=== PATIENT | female | born 1940 | race Caucasian/White ===

== ENCOUNTER → 2017-09-14 07:15 | Outpatient (CLI) | payer MEDICARE, OTHER, SELFPAY ==
--- NOTE | 2017-09-14 09:49 | NEURO_ITS ---
NCS and/or EMG Patient Report Ordering Doctor: Michael Lowery DATE OF SERVICE: 09/14/17 This is a right upper extremity nerve conduction study performed on this 77-year -old female with a history of numbness, tingling, achiness and pain for several months. There is no history of neck pain or diabetes. Right upper extremity sensory and motor nerve conduction study is performed. The median motor and sensory distal latency is prolonged, the median motor amplitude is reduced and the conduction velocity is mildly reduced. The median sensory amplitude is preserved. The ulnar motor and sensory and radial sensory responses are preserved. The median F-wave latency is prolonged compared to the ulnar F wave latency. Impression: Abnormal nerve conduction study of the right upper extremity consistent with severe carpal tunnel syndrome at the wrist.
== END ==
PROVIDERS: Family Provider Nurse Practitioner Family; PCP Nurse Practitioner Family; Visit Provider Orthopaedic Surgery
DX: G56.01 Carpal tunnel syndrome, right upper limb (principal)
CPT/HCPCS: 95909

== ENCOUNTER → 2020-12-17 09:48 | Outpatient (CLI) | payer MEDICARE, OTHER, SELFPAY ==
[2020-12-17 10:32] LABS: Hematocrit 42.4 % (37-47); Hemoglobin 14.3 g/dL (12.0-15.0); Mean Corp Hgb Conc 33.7 g/dL (32-36); Mean Corpuscular Hgb 29.8 pg (27.0-32.0); Mean Corpuscular Volume 88.3 fL (81-99); Mean Platelet Vol. 10.6 fl (6.2-12.0); Platelet Count 241 K/mm3 (150-450); RBC Distribution Width CV 13.8 % (11.6-14.6); RBC Distribution Width SD 44.9 fl (35.1-43.9); White Blood Count 5.4 K/mm3 (4.4-11.0)
[2020-12-17 11:15] LABS: ALB/GLOB Ratio 0.8 RATIO (0.9-2.4); AST(SGOT) 21 U/L (15-37); Alanine Aminotransfer ALT/SGPT 22 U/L (13-56); Albumin, Serum 3.2 g/dL (3.2-5.0); Alkaline Phosphatase 77 U/L (45-117); Anion Gap 7 (5-15); BUN 14 mg/dL (7-18); BUN/Creat Ratio 16.6 RATIO (10-20); Calcium,Total 8.9 mg/dL (8.5-10.1); Chloride 106 mmol/L (98-107); Creatinine, Serum 0.84 mg/dL (0.55-1.02); EST Glomerular Filtration Rate 69 mL/min (>60); Est Glom Filt Rate - Afr Amer 83 mL/min (>60); Globulin 4.1 g/dL (2.2-4.2); Glucose 98 mg/dL (74-106); Potassium 3.9 mmol/L (3.5-5.1); Protein, Total 7.3 g/dL (6.4-8.2); Sodium Level 138 mmol/L (136-145)
[2020-12-17 14:52] LABS: Probe Check PASS; Specimen Processing Control PASS
== END ==
PROVIDERS: PCP Nurse Practitioner Family; Visit Provider Nurse Practitioner Family
DX: U07.1 COVID-19 (principal); K92.1 Melena
CPT/HCPCS: 36415; 80053; 85027; 87635; C9803; U0005; U0003

== ENCOUNTER → 2020-12-18 07:37 | Outpatient (CLI) | payer MEDICARE, OTHER, SELFPAY | PROVIDERS: PCP Nurse Practitioner Family; Referring Provider Nurse Practitioner Family; Visit Provider Nurse Practitioner Family | DX: K92.1 Melena (principal) | CPT/HCPCS: 82274 ==

== ENCOUNTER → 2022-06-18 | Outpatient (CLI) | payer MEDICARE, OTHER, SELFPAY ==
--- NOTE | 2022-06-18 09:09 | BI_ITS ---
MAMMOGRAPHY - BILATERAL SCREENING REASON FOR EXAM: Female, 82 years old. Routine annual screening examination. PERTINENT HISTORY: Non-contributory. TECHNIQUE: Digital bilateral breast ashley (3D mammographic acquisition) in the CC and MLO projections. 2-D mediolateral oblique (MLO) and craniocaudad (CC) views of both breasts were obtained. CAD: Full Field Digital Mammography with Computer Added Detection was performed. COMPARISON: No comparison mammograms available at this time. If any prior films become available, an addendum to this report can be generated. FINDINGS: Breast Composition: There are scattered areas of fibroglandular density. There are no dominant masses or suspicious calcifications. Macrocalcifications seen in the upper midportion of the left breast. Benign-appearing bilateral axillary lymph nodes. No other significant abnormalities are identified. BI/SCRN MAMM (CAD)W/ASHLEY BILAT IMPRESSION: Negative screening mammogram. Yearly followup mammogram recommended. (A) ASSESSMENT CATEGORY: BIRADS Category 2: Benign. A letter regarding these results will be sent to the patient by the facility within 30 days. Approximately 10% of breast cancers are not detected by mammography. A normal mammogram should not delay biopsy of a clinically suspicious abnormality. [id number] Electronically Signed: Leonel Jon MD at 10:44 EDT ,
== END | disposition home or self-care (01) ==
PROVIDERS: PCP Nurse Practitioner Family; Referring Provider Nurse Practitioner Family; Visit Provider Nurse Practitioner Family
DX: Z12.31 Encounter for screening mammogram for malignant neoplasm of breast (principal)
CPT/HCPCS: 77063; 77067

== ENCOUNTER → 2023-03-11 | Outpatient (CLI) | payer MEDICARE, OTHER, SELFPAY ==
--- NOTE | 2023-03-11 12:28 | CT_ITS ---
EXAM: CT RIGHT UPPER EXTREMITY WITHOUT INTRAVENOUS CONTRAST CLINICAL INDICATION: STRAIN OF MUSC/TEND TECHNIQUE: Helically acquired images were obtained of the right upper extremity without intravenous contrast. 2-D reformats were performed by the technologist. CTDIvol = ( 22.11 ) mGy, DLP = ( 516.36 ) mGycm This CT exam was performed using one or more of the following dose reduction techniques: automated exposure control, adjustment of the mA and/or kV according to patient size, and/or use of iterative reconstruction technique. COMPARISON: No relevant prior studies available. 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 High riding humeral head is concerning for associated impingement. No other malalignment. No sclerotic or destructive changes. No acute or healing fracture. SOFT TISSUES: Unremarkable. No soft tissue swelling or gas. No radiopaque foreign body. No soft tissue masses or fluid collections. LUNGS AND PLEURAL SPACES: 5.5 mm noncalcified solid pulmonary nodule at the posterior aspect of the right upper lobe. Right lung is otherwise clear. CT/Extremity Upper without Contra IMPRESSION: 1. High riding humeral head is concerning for associated/underlying impingement. 2. 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 Correlate for any clinical evidence of glenohumeral instability. 3. 5.5 mm noncalcified solid pulmonary nodule at the posterior aspect of the right upper lobe. Suggest a follow-up complete chest CT to evaluate for presence of any other nodules. Electronically Signed: Parish Cunha MD at 23:33 EST ,
== END | disposition home or self-care (01) ==
LOC: CT 12:26
PROVIDERS: PCP Nurse Practitioner Family; Referring Provider Student in an Organized Health Care Education/Training Program; Visit Provider Student in an Organized Health Care Education/Training Program
DX: M19.011 Primary osteoarthritis, right shoulder (principal); S46.011D Strain of muscle(s) and tendon(s) of the rotator cuff of right shoulder, subsequent encounter
CPT/HCPCS: 73200

== ENCOUNTER → 2023-03-31 | Outpatient (CLI) | payer MEDICARE, OTHER, SELFPAY ==
--- NOTE | 2023-03-31 07:55 | CT_ITS ---
STUDY: CT CHEST WITH CONTRAST REASON FOR EXAM: Female, 83 years old. PULM NODULE RADIATION DOSAGE (If Supplied By Facility): CTDIvol = ( 10.92 ) mGy, DLP = ( 296.18 ) mGycm TECHNIQUE: Transaxial imaging was performed following intravenous administration of IV 100mL Isovue-300. Multiplanar coronal and sagittal images were reformatted. Individualized dose optimization techniques were used for this CT. COMPARISON: No relevant priors. FINDINGS: CHEST Stable 5 mm noncalcified nodule in the posterior aspect of the right upper lobe abutting the fissure. 12 month follow-up recommended. There is no demonstrated pleural abnormality. Normal heart and pericardium. Normal mediastinum. Normal hilar regions. Normal unenhanced pulmonary arteries. The descending thoracic aorta measures upper limits of normal. Normal osseous structures. There is a 2.3 cm x 1.7 cm hypodense nodule in the upper medial portion of the spleen. This may represent a small hemangioma. Fatty infiltration of the liver. CT/Chest WITH Contrast IMPRESSION: Stable 5 mm noncalcified nodule in the posterior aspect of the right upper lobe abutting the fissure. Twelve-month follow-up recommended. Electronically Signed: Leonel Jon MD at 9:59 EST ,
--- OUTSIDE RECORDS SUMMARY | 2023-03-31 07:59 | XMS RPT_ITS | CCD ---
Author Name Unknown Address [facility] [address] [place] [id number] Organization [facility] Care Team Providers Care Counter Former Name Role Phone FERNANDO Sim CNP, CLARE Sparks Primary Care [facility] FERNANDO JOINER - [employer], CLARE Sparks Attending U navailable FERNANDO JACQUARD TWINE POLISHER OPERATOR - [employer]ER, CLARE Sparks Primary Care U navailable FERNANDO JACQUARD TWINE POLISHER OPERATOR - [employer]ER, CLARE Sparks Attending U navailable FERNANDO JACQUARD TWINE POLISHER OPERATOR - [employer] LABORER, CLARE Sparks Primary Care U navailable FERNANDO JACQUARD TWINE POLISHER OPERATOR - [employer] LAB[employer]ER, CLARE Sparks Attending U navailable FERNANDO JACQUARD TWINE POLISHER OPERATOR - [employer]ER, CLARE Sparks Primary Care U navailable FERNANDO JACQUARD TWINE POLISHER OPERATOR - [employer]ER, CLARE Sparks Attending U navailable FERNANDO JACQUARD TWINE POLISHER OPERATOR - [employer]ER, CLARE Sparks Primary Care U navailable Allergies Allergy Classification Reported Allergen(s) Allergy Type Date of Onset Reaction(s) Facility (4 sources) Amoxicillin / Clavulanate; Translations: [amoxicillin-cla vulanate] Drug Allergy Rhinitis (disorder) [facility] Medications Current Medications Medication Drug Class(es) Dates Sig (Normalized) Sig (Original) acetaminophen 500 mg / diphenhydrAMINE hydrochloride 25 mg oral tablet (7 sources) Histamine-1 Receptor Antagonist Start: 03-02-2022 take 1 tablet by mouth once daily at bedtime Tylenol PM Extra Strength oral tablet tab(s), Oral, qHS, 0 Refill(s) Start Date: 07/01/22 Status: Ordered aspirin 325 mg oral tablet (4 sources) Platelet Aggregation Inhibitor, Nonsteroidal Anti-inflammatory Drug Start: 09-26-2018 aspirin 325 mg oral tablet Dose : 325 mg = 1 tab(s), Oral, Daily, 0 Refill(s) Start Date: 09/26/18 Status: Ordered Fish Oils (4 sources) Start: 09-26-2018 Fish Oil 1200 mg oral capsule Dose : 1,200 mg = 1 cap(s), Oral, qDay, # 90 cap(s), 0 Refill(s) Start Date: 09/26/18 Status: Ordered fosinopril sodium 20 mg oral tablet (4 sources) Angiotensin Converting Enzyme Inhibitor Start: 06-04-2022 fosinopril 20 mg oral tablet Dose : 20 mg = 1 tab(s), Oral, Daily, # 90 tab(s), 1 Refill(s), Pharmacy: [id number], Hypertension, goal below 140/90, 148, cm, 06/04/22 10:11:00 EDT, Height, kg, 06/04/22 10:11:00 EDT, Dosing Weight Start Date: 06/04/22 Status: Ordered Completed/Discontinued Medications Medication Drug Class(es) Dates Sig (Normalized) Sig (Original) diclofenac sodium 50 mg delayed release oral tablet (2 sources) Nonsteroidal Anti-inflammatory Drug Start: 07-29-2022 End: 09-27-2022 diclofenac sodium 50 mg oral delayed release tablet Dose : 50 mg = 1 tab(s), Oral, q8h, PRN as needed for arthritis, # 60 tab(s), 1 Refill(s), Pharmacy: [id number], Pain of right shoulder joint on movement, 147.5, cm, 07/29/22 8:38:00 EDT, Height Start Date: 07/29/22 Stop Date: 09/27/22 Status: Ordered Problems Problem Classification Problem Date Documented Da te Episodic/Chronic Allergic reactions (4 sources) 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 Episodic Cardiac dysrhythmias (3 sources) Tachycardia 07-01-2022 Episodic Coronary atherosclerosis and other heart disease (3 sources) History of myocardial infarction 07-01-2022 Chronic Disorders of lipid metabolism (9 sources) Hyperlipidemia; Translations: [Hypertriglyceridem ia] Onset: 11-18-2022 09-26-2018 Chronic Essential hypertension (6 sources) Hypertensive disorder; Translations: [Essential (primary) hypertension] Onset: 11-18-2022 09-26-2018 Chronic Heart valve disorders (1 source) Aortic valve disorder 08-05-2022 Chronic Nonmalignant breast conditions (4 sources) Lesion of breast 05-04-2022 Episodic Nutritional deficiencies (6 sources) Vitamin D deficiency; Translations: [Vitamin D deficiency, unspecified] Onset: 11-18-2022 09-26-2018 Chronic Other and ill-defined heart disease (3 sources) Left atrial enlargement 07-01-2022 Chronic Results Test Name Value Interpretation Reference Range Facil ity Encounters Encounter Date Encounter Type Care Provider Facility Start: 11-18-2022 ambulatory CLARE OROZCO JACQUARD TWINE POLISHER OPERATOR - [employer] Facility:B Start: 11-18-2022 End: 11-22-2022 Outreach Lab CLARE KING JACQUARD TWINE POLISHER OPERATOR - [employer]ER [facility] Start: 07-08-2022 End: 07-09-2022 ambulatory CLARE KING JACQUARD TWINE POLISHER OPERATOR - [employer] Facility:B Start: 07-08-2022 End: 07-08-2022 Patient encounter procedure CLARE KING JACQUARD TWINE POLISHER OPERATOR - [employer] [facility] Start: 07-01-2022 End: 07-02-2022 ambulatory CLARE KING JACQUARD TWINE POLISHER OPERATOR - [employer] Facility:B Start: 07-01-2022 End: 07-01-2022 Patient encounter procedure CLARE KING JACQUARD TWINE POLISHER OPERATOR - [employer] [facility] Start: 05-11-2022 End: 05-12-2022 ambulatory CLARE KING JACQUARD TWINE POLISHER OPERATOR - [employer] Facility:B Start: 05-11-2022 End: 05-11-2022 Patient encounter procedure CLARE KING JACQUARD TWINE POLISHER OPERATOR - [employer]ER [facility] Procedures Date Procedure Procedure Detail Performing Clinician Start: 03-21-2017 Decompression of med yoel nerve CLARE KING JACQUARD TWINE POLISHER OPERATOR - [employer]ER Immunizations Immunization Date Immunization Notes Care Provider Fa jamaal 04-08-2022 influenza, injectabl e, quadrivalent, contains preservative; Translations: [Fluarix PF Quadrivalent ] CLARE KING JACQUARD TWINE POLISHER OPERATOR - [employer]ER [facility] [employer] 04-09-2021 SARS-CoV-2 (COVID-19 ) [id number] vaccine CLARE KING JACQUARD TWINE POLISHER OPERATOR - [employer] [facility] [employer] Payers Date Payer Category Payer Medicare [id number] 2022 Private Health Insurance [id number] 1940 Unknown [id number] 1940 Unknown [id number] 1940 Unknown [id number] 1940 Unknown [id number] Social History Date Type Detail Facility Start: 09-26-2018 Tobacco smoking status Never s moked tobacco (finding) [facility] Evaluation + Plan note Laboratory Note Date & Type Note Facility Evaluation + Plan note Future Appointments Appointment Date:05/27/2022 09:15:00 AM Scheduled Provider: Location:[facility] Appointment Type:PC Nurse Lab Appointment Date:06/03/2022 09:00:00 AM Scheduled Provider:CLARE KING JACQUARD TWINE POLISHER OPERATOR - [employer] Location:[facility] Appointment Type: OV Follow Up Future Scheduled TestsThyroid Stimulating Hormone 05/27/22Free T4 05/27/22Complete Blood Count 05/27/22Lipid Profile 05/27/22Microalbumin Level Urine 05/27/22Microalbumin Level Urine 11/22/21Vitamin D Level 05/27/22Complete Metabolic Panel 05/27/22 [facility] Evaluation + Plan note Laboratory Note Date & Type Note Facility Evaluation + Plan note Future Appointments Appointment Date:07/20/2022 08:20:00 AM Scheduled Provider:CLARE KING APRN, CNP Location:[facility] Appointment Type:PC OV Follow Up Appointment Date:12/02/2022 09:15:00 AM Scheduled Provider: Location:[facility] Appointment Type:PC Nurse Lab Appointment Date:12/09/2022 09:40:00 AM Scheduled Provider:CLARE KING APRN, CNP Location:[facility] Appointment Type:PC OV Follow Up Future Scheduled TestsThyroid Stimulating Hormone 12/05/22Free T4 12/05/22Complete Blood Count 12/05/22Lipid Profile 12/05/22Albumin/Creatinine Ratio, Random Urine 12/05/22Microalbumin Level Urine 3/12/11Microalbumin Level Urine /22Vitamin D Level 12/05/22Complete Metabolic Panel 12/05/22 [facility] Evaluation + Plan note Laboratory Note Date & Type Note Facility Evaluation + Plan note Future Appointments Appointment Date:07/20/2022 08:20:00 AM Scheduled Provider:CLARE KING APRN, CNP Location:[facility] Appointment Type:PC OV Follow Up Appointment Date:08/05/2022 01:15:00 PM Scheduled Provider: Location:[facility] Appointment Type:CV BOBBIN DISKER Appointment Date:12/02/2022 09:15:00 AM Scheduled Provider: Location:[facility] Appointment Type:PC Nurse Lab Appointment Date:12/09/2022 09:40:00 AM Scheduled Provider:CLARE KING APRN, CNP Location:[facility] Appointment Type:PC OV Follow Up Future Scheduled TestsThyroid Stimulating Hormone 12/05/22Free T4 12/05/22Complete Blood Count 12/05/22Lipid Profile 12/05/22Albumin/Creatinine Ratio, Random Urine 12/05/22Microalbumin Level Urine 3/12/11Microalbumin Level Urine 9//22Vitamin D Level 12/05/22Complete Metabolic Panel 12/05/22 [facility] Evaluation + Plan note Note Date & Type Note Facility Evaluation + Plan note Future Appointments Appointment Date:11/30/2022 08:00:00 AM Scheduled Provider:CLARE KING APRN, CNP Location:[facility] Appointment Type:PC OV Follow Up [facility] Hospital course Narrative Note Date & Type Note Facility Hospital course Narrative No data available for this section [facility] Hospital Discharge instructions Note Date & Type Note Facility Hospital Discharge instructions No data available for this section [facility] Progress note Note Date & Type Note Facility Progress note No data available for this section [facility] Summary Purpose Family History No Family History Records Found No data available for this section Advance Directives No Advanced Directives Records Found Additional Source Comments Care Team (unrecognized sect ion and content) Care Team Personnel Name: CLARE KING APRN, CNP Position: P4 Advanced Brim Pouncer Machine Operator Member Role: Primary Care Physician Address: Address: [address] [place] [address] Care Team Related Persons Name: MAYITO GRIDER Patient Care team informatio n (unrecognized section and content) Care Team Personnel Name: CLARE KING APRN, CNP Position: P4 Advanced Brim Pouncer Machine Operator Member Role: Primary Care Physician Address: Address: [address] [place] [address] Care Team Related Persons Name: MAYITO GRIDER INFORMATION SOURCE (unrecogn ized section and content) FOR RECORDS PERTAINING TO PATIENTS WHO ARE OR HAVE BEEN ENROLLED IN A CHEMICAL DEPENDENCY/SUBSTANCEABUSE PROGRAM, SOME INFORMATION MAY BE OMITTED. This clinical summary was aggregated from multiple sources. Caution should be exercised in using it in the provision of clinical care. This summary normalizes information from multiple sources, and as a consequence, information in this document may materially change the coding, format and clinical context of patient data. In addition, data may be omitted in some cases. CLINICAL DECISIONS SHOULD BE BASED ON THE PRIMARY CLINICAL RECORDS. [facility] [employer] [facility]. provides no warranty or guarantee of the accuracy or completeness of information in this document.
== END | disposition home or self-care (01) ==
LOC: CT 07:54
PROVIDERS: PCP Nurse Practitioner Family; Referring Provider Nurse Practitioner Family; Visit Provider Nurse Practitioner Family
DX: R91.1 Solitary pulmonary nodule (principal)
CPT/HCPCS: 71260; Q9967

== ENCOUNTER 2023-04-07 15:09 | Observation (INO) | payer MEDICARE, OTHER, SELFPAY ==
--- NOTE | 2023-03-11 12:24 | EKG12_ITS ---
Test Reason : PRE OP Blood Pressure : / mmHG Vent. Rate : 084 BPM Atrial Rate : 084 BPM P-R Int : 212 ms QRS Dur : 072 ms QT Int : 354 ms P-R-T Axes : 062 -17 060 degrees QTc Int : 418 ms Sinus rhythm with 1st degree A-V block Low voltage QRS Borderline ECG Confirmed by NORA CHRISTY, USHA ([id number]), editorial intern PONCHO PITT ([id number]) on 03/11/2023 2:38:45 PM Referred By: Migue Carrillo Confirmed By:USHA MELENDEZ MD
[2023-03-11 13:34] LABS: Absolute Lymphocyte Count 2.53 X10^3/uL (0.83-4.51); Absolute Neutrophil Count 5.7 X10^3/uL (2.0-7.7); Basophil% 1.9 % (0-1); Eosinophil# 0.57 X10^3/uL; Eosinophils% 5.5 % (0-5); Hematocrit 45.3 % (37-47); Hemoglobin 14.8 g/dL (12.0-15.0); Lymphocyte # 2.53 X10^3/ul (0.83-4.51); Lymphocyte % 24.6 % (19-41); Mean Corp Hgb Conc 32.7 g/dL (32-36); Mean Corpuscular Hgb 29.4 pg (27.0-32.0); Mean Corpuscular Volume 90.1 fL (81-99); Mean Platelet Vol. 10.2 fl (6.2-12.0); Monocyte# 1.22 X10^3/uL; Monocyte% 11.8 % (0-10); NRBC Flagged by Analyzer 0 % (0-5); Neutrophil # 5.74 X10^3/uL (2.7-7.7); Neutrophil % 55.8 % (47-70); Platelet Count 393 K/mm3 (150-450); RBC Distribution Width CV 13.3 % (11.6-14.6); RBC Distribution Width SD 43.4 fl (35.1-43.9); Red Blood Count 5.03 M/mm3 (4.2-5.4); White Blood Count 10.3 K/mm3 (4.4-11.0)
[2023-03-11 13:47] LABS: Albumin, Serum 3.7 g/dL (3.2-5.0); Anion Gap 6 (5-15); BUN 14 mg/dL (7-18); BUN/Creat Ratio 18.7 RATIO (10-20); Calcium,Total 10.6 mg/dL (8.5-10.1); Chloride 106 mmol/L (98-107); Creatinine, Serum 0.75 mg/dL (0.55-1.02); EST Glomerular Filtration Rate 79 mL/min (>60); Est Glom Filt Rate - Afr Amer 96 mL/min (>60); Glucose 99 mg/dL (74-106); Potassium 4.5 mmol/L (3.5-5.1); Sodium Level 139 mmol/L (136-145)
[2023-03-11 13:47] LABS: Magnesium 2.1 mg/dL (1.6-2.6)
[2023-04-07] VITALS (12 sets, daily range): BP systolic 115–150; BP diastolic 73–87; PULSE 71–90; RESP 14–20; TEMP 35.9–36.3; O2SAT 90–99; BMI 31.4
--- OUTSIDE RECORDS SUMMARY | 2023-04-07 12:38 | XMS RPT_ITS | CCD ---
Author Name Unknown Address Critical access hospital5 [facility] [address] [place] [id number] Organization [facility] Care Team Providers Care Dog Warden Name Role Phone FERNANDO Sim CNP, CLARE Sparks Primary Care [facility] FERNANDO JOINER - WELFARE ADMINISTRATOR, CLARE Sparks Attending U navailable FERNANDO CAR BUILDER - WELFARE ADMINISTRATOR, CLARE Sparks Primary Care U navailable FERNANDO CAR BUILDER - WELFARE ADMINISTRATOR, CLARE Sparks Attending U navailable FERNANDO CAR BUILDER - WELFARE ADMINISTRATOR, CLARE Sparks Primary Care U navailable FERNANDO CAR BUILDER - WELFARE ADMINISTRATOR, CLARE Sparks Attending U navailable FERNANDO CAR BUILDER - WELFARE ADMINISTRATOR, CLARE Sparks Primary Care U navailable FERNANDO CAR BUILDER - WELFARE ADMINISTRATOR, CLARE Sparks Attending U navailable FERNANDO CAR BUILDER - WELFARE ADMINISTRATOR, CLARE Sparks Primary Care U navailable Allergies Allergy Classification Reported Allergen(s) Allergy Type Date of Onset Reaction(s) Facility (4 sources) Amoxicillin / Clavulanate; Translations: [amoxicillin-cla vulanate] Drug Allergy Rhinitis (disorder) [facility] Medications Current Medications Medication Drug Class(es) Dates [...] Daily, # 90 tab(s), 1 Refill(s), Pharmacy: [id number], Hypertension, goal below 140/90, 148, [...] arthritis, # 60 tab(s), 1 Refill(s), Pharmacy: [id number], Pain of right shoulder joint [...] Provider Facility Start: 11-18-2022 ambulatory CLARE OROZCO CAR BUILDER - WELFARE ADMINISTRATOR Facility:B Start: 11-18-2022 End: 11-22-2022 Outreach Lab CLARE KING CAR BUILDER - WELFARE ADMINISTRATOR [facility] Start: 07-08-2022 End: 07-09-2022 ambulatory CLARE KING CAR BUILDER - WELFARE ADMINISTRATOR Facility:[facility] Start: 07-08-2022 End: 07-08-2022 Patient encounter procedure CLARE KING CAR BUILDER - WELFARE ADMINISTRATOR [facility] Start: 07-01-2022 End: 07-02-2022 ambulatory CLARE KING CAR BUILDER - WELFARE ADMINISTRATOR Facility:[facility] Start: 07-01-2022 End: 07-01-2022 Patient encounter procedure CLAER KING CAR BUILDER - WELFARE ADMINISTRATOR [facility] Start: 05-11-2022 End: 05-12-2022 ambulatory CLARE KING CAR BUILDER - WELFARE ADMINISTRATOR Facility:[facility] Start: 05-11-2022 End: 05-11-2022 Patient encounter procedure CLARE KING CAR BUILDER - WELFARE ADMINISTRATOR [facility] Procedures Date Procedure Procedure Detail Performing Clinician Start: 03-21-2017 Decompression of med yoel nerve CLARE KING CAR BUILDER - WELFARE ADMINISTRATOR Immunizations Immunization Date Immunization Notes Care Provider Fa jamaal 04-08-2022 influenza, injectabl e, quadrivalent, contains preservative; Translations: [Fluarix PF Quadrivalent ] CLARE KING CAR BUILDER - WELFARE ADMINISTRATOR [facility] [employer] 04-09-2021 SARS-CoV-2 (COVID-19 ) [id number] vaccine CLARE KING CAR BUILDER - WELFARE ADMINISTRATOR [facility] [place] Payers Date Payer Category Payer Medicare [id number] 2022 Private Health Insurance [id number] 1940 Unknown [id number] 1940 Unknown [id number] 1940 Unknown [id number] 1940 Unknown [id number] Social History Date Type Detail Facility Start: 09-26-2018 Tobacco smoking status Never s moked tobacco (finding) [facility] Evaluation + Plan note Laboratory Note Date & Type Note Facility Evaluation + Plan note Future Appointments Appointment Date:05/27/2022 09:15:00 AM Scheduled Provider: Location:[facility] Appointment Type:PC Nurse Lab Appointment Date:06/03/2022 09:00:00 AM Scheduled Provider:CLARE KING CAR BUILDER - WELFARE ADMINISTRATOR Location:[facility] Appointment Type: OV Follow Up Future Scheduled TestsThyroid Stimulating Hormone 05/27/22Free T4 05/27/22Complete Blood Count 05/27/22Lipid Profile 05/27/22Microalbumin Level Urine 05/27/22Microalbumin Level Urine 11/22/21Vitamin D Level 05/27/22Complete Metabolic Panel 05/27/22 [facility] Evaluation + Plan note Laboratory Note Date [...] /22Vitamin D Level 12/05/22Complete Metabolic Panel 12/05/22 [facility] Evaluation + Plan note Laboratory Note Date & Type Note Facility Evaluation + Plan note Future Appointments Appointment Date:07/20/2022 08:20:00 AM Scheduled Provider:CLARE KING APRN, CNP Location:[facility] Appointment Type:PC OV Follow Up Appointment Date:08/05/2022 01:15:00 PM Scheduled Provider: Location:[facility] Appointment Type:CV ONCOLOGY TRANSPLANT NETWORK MANAGER Appointment Date:12/02/2022 09:15:00 AM Scheduled Provider: Location:[facility] Appointment Type:PC Nurse Lab Appointment Date:12/09/2022 09:40:00 AM Scheduled Provider:CLARE KING APRN, CNP Location:[facility] Appointment Type:PC OV Follow Up Future Scheduled TestsThyroid Stimulating Hormone 12/05/22Free T4 12/05/22Complete Blood Count 12/05/22Lipid Profile 12/05/22Albumin/Creatinine Ratio, Random Urine 12/05/22Microalbumin Level Urine 3/12/11Microalbumin Level Urine 9//22Vitamin D Level 12/05/22Complete Metabolic Panel 12/05/22 [facility] Evaluation + Plan note Note Date & Type Note Facility Evaluation + Plan note Future Appointments Appointment Date:11/30/2022 08:00:00 AM Scheduled Provider:CLARE KING APRN, CNP Location:[facility] Appointment Type:PC OV Follow Up [facility] Hospital course Narrative Note Date & Type Note Facility Hospital course Narrative No data available for this section [facility] Hospital Discharge instructions Note Date & Type Note Facility Hospital Discharge instructions No data available for this section [facility] Progress note Note Date & Type Note Facility Progress note No data available for this section [facility] Summary Purpose Family History No Family History Records Found No data available for this section Advance Directives No Advanced Directives Records Found Additional Source Comments Care Team (unrecognized sect ion and content) Care Team Personnel Name: CLARE KING APRN, CNP Position: P4 Advanced Pile Operator Member Role: Primary Care Physician Address: Address: [address] [place] [address] Care Team Related Persons Name: MAYITO GRIDER Patient Care team informatio n (unrecognized section and content) Care Team Personnel Name: CLARE KING APRN, CNP Position: P4 Advanced Pile Operator Member Role: Primary Care Physician Address: Address: [address] [place] [address] Care Team Related Persons Name: MAYITO GRIDER [...] BE BASED ON THE PRIMARY CLINICAL RECORDS. [facility]. provides no warranty or guarantee of the accuracy or completeness of information in this document.
[2023-04-07] MEDS: Lactated Ringers 1,000 ML 999 ML IV (12:46)
[2023-04-07] MEDS: Magnesium 1 GM over 15 mins IV (12:47)
[2023-04-07] MEDS: Vancomycin IV 1,000 MG/200 ML BAG 200 MG IV (12:48)
[2023-04-07] MEDS: Gabapentin 600 MG Tablet PO (12:48)
[2023-04-07] MEDS: Acetaminophen 500 MG Tablet 1000 MG PO ×2 (12:48→21:46)
[2023-04-07] MEDS: Celecoxib 200 MG Capsule 400 MG PO (12:48)
[2023-04-07 13:06] LABS: Bedside Glucose 117 mg/dL (74-106)
[2023-04-07] MEDS: Cefazolin 1 GM/50 ML BAG IV (13:36)
[2023-04-07] MEDS: Cefazolin 2 GM in 0.9% Normal Saline (100mL Bag) 100 ML IV (13:36)
[2023-04-07] MEDS: TXA 1000mg in NS100 100ml (IVPB at Incision) 660 MG IV (13:40)
--- NOTE | 2023-04-07 14:00 | SHO_PTH ---
PATHOLOGY RESULTS PATIENT: HARRISON GRIDER LOC: MS3 U#:[id number] AGE/SX: 83/F ROOM: MA313 RE04/07/[address]: Dr. Migue Carrillo DO : 1940 BED: 1 DIS: 04/08/2023 SPEC #: [id number] RECD: 04/08/23 07:34 STATUS: JOSE THAI #: [id number] YISEL: 04/07/23 14:[address]: Migue Carrillo DEPT: SURGICAL PATHOLOGY RECD BY: Maria G Anne ENTERED: 04/08/23 10:08 SP TYPE: HUMERUS OTHR DR: DO Dr. Tong Rooney DO Richard Dennis Tompkins, GYMNASTIC TEACHER-C Tissues: Humerus, NOS Procedures: Decalcification bone/plaque Surgery Specimen Level IV HEADER OPERATION: ERAS, reverse total shoulder arthroplasty PRE-OP DIAGNOSIS: Pain right shoulder, rotator cuff tear and osteoarthritis TISSUE SUBMITTED: Bone and tissue right shoulder MICROSCOPIC DIAGNOSIS Bone and tissue of right shoulder, total shoulder resection: Degenerative joint disease. Polarizable crystals consistent with pseudogout. AM:rita 04/13/2023 MICROSCOPIC DESCRIPTION Slides are reviewed. GROSS DESCRIPTION Received is one container labeled with the patient's name and designated bone and tissue right shoulder. The specimen consists of a humeral head measuring 3.5 x 4.0 x 1.2 cm. The articular surface?shows areas of erosion and osteophyte formation. Also present in the container is a detached piece of bone measuring 3.0 x 2.0 x 0.2 cm. Also received is a piece of fibrocartilaginous tissue measuring 4.0 x 1.0 x 0.5 cm. Bed Maker sections are submitted in two cassettes as follows: 1 - soft tissue, 2 - humeral head after decalcification. / SJ:rita 04/08/2023 TC:5 CPT: 64595, 22185
--- NOTE | 2023-04-07 15:28 | OP.PCM_ITS ---
Report of Operation Date of Procedure: 04/07/23 Description of Surgical Findings:: Preoperative diagnosis: Right shoulder cuff tear arthropathy Postoperative diagnosis: Right shoulder cuff tear arthropathy Procedure: Right reverse total shoulder arthroplasty Surgeon: Migue Carrillo DO Assembler Product: Yuni Lopez PA-C Anesthesia: General endotracheal Pbx Installer: Shay Moore CRNA Complications: None apparent Drains: None Estimated blood loss: 100 cc Urinary output: None IV fluids: Per anesthesia record Specimens: Right humeral head resection Surgical implants: Tornier Aequalis PerFORM+ reversed baseplate 25 mm full wedge augment, standard glenosphere cobalt chrome 36 mm diameter, Tornier perform inlay stem size #2, 0 mm retentive size number 2 36 diameter polyethylene insert, 36 mm central screw with peripheral screws x 4 Surgical indications: This is a 83-year-old female with persistent right shoulder pain and weakness. X-rays revealed cuff tear arthropathy of the right shoulder. She failed nonoperative treatment in the form of NSAIDs, activity modification, physical t herapy, and corticosteroid injection. I recommended a reverse shoulder arthroplasty. We obtained a preoperative CT scan for planning. The risks, benefits, alternatives the procedure was reviewed with the patient and he agreed to proceed. Risks included but were not limited to bleeding, infection, instability, loss of life or limb, risk of anesthesia, neurovascular injury, persistent pain, stiffness, prolonged immobilization, need for additional surgery, loosening of orthopedic hardware. She expressed understanding and wished to proceed with surgery. Surgical details: Patient arrived to [facility] morning of the procedure and was greeted by the same day surgery staff. Prior to her procedure, I greeted the patient in the preoperative holding area I identified the patient by name, record number, and date of . Informed consent was confirmed. The operative extremity was marked. All questions were answered to patient satisfaction. An interscalene block was administered prior to procedure by anesthesia staff for postoperative and intraoperative analgesia. At time of her procedure, patient was brought to the operative suite and positioned supine on a standard table with a beachchair attachment. General anesthesia was induced after all bony prominences were well-padded. Endotracheal tube was placed. After adequate anesthesia and securing the tube, we prepared the patient to be positioned in the beachchair position. A well- padded evp head of smg [employer] experience strategy was applied. The nonoperative extremity was placed in a well arm morris. She was then brought into the beachchair position after we confirmed an appropriate blood pressure. We then spun the bed 45 degrees. The operative extremity was then prepared. In the butterfly wing of the bed was removed and a well-padded torso strap was applied to secure the patient to the bed. The operative extremity was now free. We then prepped and draped the right upper extremity in normal, sterile orthopedic fashion. We then performed a timeout with all parties in attendance in agreement with the side, site, and operation be performed. Weight-based vancomycin and 2 g Ancef was administered prior to incision by anesthesia staff, as well as 1 g TXA IV. No concerns were voiced and we elected to proceed. I first marked a standard deltopectoral incision just lateral to the coracoid process in line with the long axis of the humerus. Skin was sharply incised with 10 blade scalpel. I then dissected bluntly through the subcutaneous layers and found the fat stripe between the deltoid and pectoralis major. The cephalic vein was then identified and protected. It was retracted laterally with the deltoid. I then bluntly dissected underneath the deltoid with a Banks elevator. Aurora retractor was placed. I then identified the long head of the biceps tendon in the intertubercular groove. This was tenodesed in situ with #2 FiberWire. I then amputated the biceps proximal to the tenodesis site and fo llowed the tendon to the supraglenoid tubercle where it was amputated. This identified the lesser and greater tuberosities. Retraction of the supraspinatus with exposed footprint was noted. I then performed a subscapularis peel while rotating the humerus externally. I tagged the subscapularis for possible repair later with a tagging suture. Humeral head was then dislocated anteriorly. Appropriate access to the humeral head was confirmed. I then subluxed the humeral head posteriorly with a Fukuda retractor placed around the posterior lip of the glenoid. Inferior capsule was tension. I was able to palpate the axillary nerve. Inferior capsule was then released to the 4 o'clock position of the glenoid face. 3 sided subscapularis release was performed with Bovie cautery. I then remove the Fukuda retractor and redislocated the shoulder anteriorly. I then made an anatomic neck cut of the cartilaginous surface of the humeral head. Sizing plate for a size # 2 stem was utilized to determine appropriate reaming size. A central pin was placed engaging the lateral cortex of the humerus. A size # 2 reamer was used to ream the humeral metaphysis and prepare for the inlay stem. A canal finding reamer was utilized prior to sequential broaching to a size # 2 short stem with excellent rotational and axial purchase in the humerus. I remove the broach handle left the size # [address] I then subluxed the humerus posterior to the glenoid. I then placed retractors around the posterior and anterior glenoid to expose the glenoid. Glenoid labrum was removed with Bovie cautery protecting the axillary nerve. We then used the custom guide from Melinda to position our centering pin, exiting approximately 25 mm from the joint surface along the anterior scapula. Guide was removed and pin was analyzed and compared to preoperative planning. It appeared to be in appropriate position. The wedge shaped reamer was then placed over top of the centering pin. I reamed a flush surface of the glenoid in relationship to the augment. We then removed the reamer and pin and used the drill for the central screw. Central screw and baseplate was assembled on the back table. We then inserted the baseplate and central screw the assembled baseplate to an appropriate depth with excellent purchase. A [place] was used to confirm depth. Peripheral screws then were placed in the peripheral holes with good purchase. The baseplate had excellent purchase and the entire scapula would rotate with rotation of the baseplate. We then impacted the 36 mm glenosphere with a standard eccentricity and tightened the locking screw mechanism. We then removed retractors and turned our attention back to the humerus. I placed a standard +0 millimeters retentive polyethylene insert. I then reduced the shoulder. There was excellent range of motion and stability in all planes of motion. We selected this as our final size. We removed trials from the humerus after final dislocation. I copiously irrigated the canal with normal saline. Broach was placed on hand and then impacted to an appropriate depth. Final +0 mm retentive polyethylene insert was placed. Final reduction was then performed. The subscapularis was then identified with a tagging suture. Repair would have been likely under undue tension and likely failed. I elected to not perform a subscapularis repair. We then copiously irrigated the wound with sterile Betadine and normal saline solution. We reapproximated the fascial interval with 0 Vicryl suture. Subcutaneous layers were reapproximated with 2 -0 Vicryl suture. Skin was finally running V-Loc 3-0 Monocryl suture and Dermabond. A sterile silver Mepilex dressing was applied. Patient was then placed in an ultra sling. Patient tolerated procedure well without complication. She was positioned back in the supine position extubated in the operative suite. She was transferred to the [facility] and subsequently to PACU in stable condition. Need for skilled fleet administrative assistant: Yuni Lopez PA-C was critical to the outcome of the case. During the course of the procedure the physician fleet administrative assistant played a vital role. Her intimate knowledge of my steps in the procedure aided in safe and expedient completion of the procedure. The PA played a vital role in positioning particularly in obtaining the appropriate positioning. The PA was also vital in the retraction of soft tissues during the exposure and protecting vital structures. The PA was also vital and protecting soft tissues during times of bony cuts. She also played a vital role in closure with my direct supervision. The PA was also important during reduction and dislocation of the joint and trials intraoperatively. Intraoperative medications: 2 g Ancef IV, weight-based vancomycin IV, 1 g TXA IV Post Operative Plan: Patient be placed in observation overnight for early convalescence and medical monitoring. Weightbearing: Nonweightbearing right upper extremity, okay for pendulums. Range of motion of wrist elbow and hand as tolerated. Antibiotics: 2 g Ancef IV prior to incision, 24 hours IV antibiotics postoperatively DVT Prophylaxis: Aspirin enteric-coated 81 mg twice daily starting tomorrow Hubbard: None Dressing: Maintain silver dressing x7 days. Okay to shower dressing on starting on day 4 X-Rays: 2 weeks postop in the office Pain Medication: Oxycodone, meloxicam, Tylenol Follow-up: 2 weeks post-operatively with me in the office
--- NOTE | 2023-04-07 15:35 | RAD_ITS ---
STUDY: X-RAY - RIGHT SHOULDER REASON FOR EXAM: Female, 83 years old. post op -- AP and Lateral X-Ray of operative shoulder in PACU TECHNIQUE: 2 view(s) of the shoulder. COMPARISON: None. FINDINGS: Right shoulder prosthesis showing normal alignment of the glenohumeral joint alignment with normal prosthesis of the proximal humerus and glenoid component. Normal acromioclavicular joint. Normal acromion. The soft tissue structures are unremarkable. Normal visualized pulmonary apex. RAD/Shoulder min 2 Views IMPRESSION: Right shoulder prosthesis showing expected postoperative changes in normal alignment. Electronically Signed: Tarun Jones DO at 15:51 EST ,
[2023-04-07] MEDS: Lactated Ringers 1,000 ML 125 ML IV (15:57)
--- OUTSIDE RECORDS SUMMARY | 2023-04-07 16:39 | XMS RPT_ITS | CCD ---
Author Name Unknown Address [facility] [address] [place] [id number] Organization [facility] Care Team Providers Care Ceramic Tile Mechanic Name Role Phone FERNANDO Sim CNP, CLARE Sparks Primary Care [facility] FERNANDO JOINER - SINGING TELEGRAM PERFORMER, CLARE Sparks Attending U navailable FERNANDO ENVIRONMENT ARTIST - SINGING TELEGRAM PERFORMER, CLARE Sparks Primary Care [facility] navailable FERNANDO ENVIRONMENT ARTIST - SINGING TELEGRAM PERFORMER, CLARE Sparks Attending U navailable FERNANDO ENVIRONMENT ARTIST - SINGING TELEGRAM PERFORMER, CLARE Sparks Primary Care U navailable FERNANDO ENVIRONMENT ARTIST - SINGING TELEGRAM PERFORMER, CLARE Sparks Attending U navailable FERNANDO ENVIRONMENT ARTIST - SINGING TELEGRAM PERFORMER, CLARE Sparks Primary Care U navailable FERNANDO ENVIRONMENT ARTIST - SINGING TELEGRAM PERFORMER, CLARE Sparks Attending U navailable FERNANDO ENVIRONMENT ARTIST - SINGING TELEGRAM PERFORMER, CLARE Sparks Primary Care U navailable Allergies Allergy Classification Reported Allergen(s) Allergy Type Date of Onset Reaction(s) Facility (4 sources) Amoxicillin / Clavulanate; Translations: [amoxicillin-cla vulanate] Drug Allergy Rhinitis (disorder) [facility] Medications Current Medications Medication Drug Class(es) [...] Daily, # 90 tab(s), 1 Refill(s), Pharmacy: [id number], Hypertension, goal below [...] arthritis, # 60 tab(s), 1 Refill(s), Pharmacy: [id number], Pain of right [...] Provider Facility Start: 11-18-2022 ambulatory CLARE OROZCO ENVIRONMENT ARTIST - SINGING TELEGRAM PERFORMER Facility:B Start: 11-18-2022 End: 11-22-2022 Outreach Lab CLARE KING ENVIRONMENT ARTIST - SINGING TELEGRAM PERFORMER [facility] Start: 07-08-2022 End: 07-09-2022 ambulatory CLARE KING ENVIRONMENT ARTIST - SINGING TELEGRAM PERFORMER Facility:B Start: 07-08-2022 End: 07-08-2022 Patient encounter procedure CLARE KING ENVIRONMENT ARTIST - SINGING TELEGRAM PERFORMER [facility] Start: 07-01-2022 End: 07-02-2022 ambulatory CLARE KING ENVIRONMENT ARTIST - SINGING TELEGRAM PERFORMER Facility:B Start: 07-01-2022 End: 07-01-2022 Patient encounter procedure CLARE KING ENVIRONMENT ARTIST - SINGING TELEGRAM PERFORMER [facility] Start: 05-11-2022 End: 05-12-2022 ambulatory CLARE KING ENVIRONMENT ARTIST - SINGING TELEGRAM PERFORMER Facility:B Start: 05-11-2022 End: 05-11-2022 Patient encounter procedure CLARE KING ENVIRONMENT ARTIST - SINGING TELEGRAM PERFORMER [facility] Procedures Date Procedure Procedure Detail Performing Clinician Start: 03-21-2017 Decompression of med yoel nerve CLARE KING ENVIRONMENT ARTIST - SINGING TELEGRAM PERFORMER Immunizations Immunization Date Immunization Notes Care Provider Fa jamaal 04-08-2022 influenza, injectabl e, quadrivalent, contains preservative; Translations: [Fluarix PF Quadrivalent ] CLARE KING ENVIRONMENT ARTIST - SINGING TELEGRAM PERFORMER [place] [employer] 04-09-2021 SARS-CoV-2 (COVID-19 ) [id number] vaccine CLARE KING ENVIRONMENT ARTIST - SINGING TELEGRAM PERFORMER [place] [employer] Payers Date Payer Category Payer Medicare [id number] 2022 Private Health Insurance [id number] 1940 Unknown [id number] 1940 Unknown [id number] 1940 Unknown [id number] 1940 Unknown [id number] Social History Date Type Detail Facility Start: 09-26-2018 Tobacco smoking status Never s moked tobacco (finding) [facility] Evaluation + Plan note Laboratory Note Date & Type Note Facility Evaluation + Plan note Future Appointments Appointment Date:05/27/2022 09:15:00 AM Scheduled Provider: Location:[facility] Appointment Type:PC Nurse Lab Appointment Date:06/03/2022 09:00:00 AM Scheduled Provider:CLARE KING ENVIRONMENT ARTIST - SINGING TELEGRAM PERFORMER Location[facility] Appointment Type: OV Follow Up Future Scheduled TestsThyroid Stimulating Hormone 05/27/22Free T4 05/27/22Complete Blood Count 05/27/22Lipid Profile 05/27/22Microalbumin Level Urine 05/27/22Microalbumin Level Urine 11/22/21Vitamin D Level 05/27/22Complete Metabolic Panel 05/27/22 [facility] Evaluation + Plan note Laboratory Note [...] /22Vitamin D Level 12/05/22Complete Metabolic Panel 12/05/22 [facility] Evaluation + Plan note Laboratory Note Date & Type Note Facility Evaluation + Plan note Future Appointments Appointment Date:07/20/2022 08:20:00 AM Scheduled Provider:CLARE KING APRN, CNP Location:[facility] Appointment Type:PC OV Follow Up Appointment Date:08/05/2022 01:15:00 PM Scheduled Provider: Location:[facility] Appointment Type:CV ACADEMIC COUNSELOR Appointment Date:12/02/2022 09:15:00 AM Scheduled Provider: Location:[facility] Appointment Type:PC Nurse Lab Appointment Date:12/09/2022 09:40:00 AM Scheduled Provider:CLARE KING APRN, CNP Location:[facility] Appointment Type:PC OV Follow Up Future Scheduled TestsThyroid Stimulating Hormone 12/05/22Free T4 12/05/22Complete Blood Count 12/05/22Lipid Profile 12/05/22Albumin/Creatinine Ratio, Random Urine 12/05/22Microalbumin Level Urine 3/12/11Microalbumin Level Urine 9//22Vitamin D Level 12/05/22Complete Metabolic Panel 12/05/22 [facility] Evaluation + Plan note Note Date & Type Note Facility Evaluation + Plan note Future Appointments Appointment Date:11/30/2022 08:00:00 AM Scheduled Provider:CLARE KING APRN, CNP Location:[facility] Appointment Type:PC OV Follow Up [facility] Hospital course Narrative Note Date & Type Note Facility Hospital course Narrative No data available for this section [facility] Hospital Discharge instructions Note Date & Type Note Facility Hospital Discharge instructions No data available for this section [facility] Progress note Note Date & Type Note Facility Progress note No data available for this section [facility] Summary Purpose Family History No Family History Records Found No data available for this section Advance Directives No Advanced Directives Records Found Additional Source Comments Care Team (unrecognized sect ion and content) Care Team Personnel Name: CLARE KING APRN, CNP Position: P4 Advanced Graphics Edit Technician Member Role: Primary Care Physician Address: Address: [address] [place] [address] Care Team Related Persons Name: MAYITO GRIDER Patient Care team informatio n (unrecognized section and content) Care Team Personnel Name: CLARE KING APRN, CNP Position: P4 Advanced Graphics Edit Technician Member Role: Primary Care Physician Address: Address: [address] [place] [address] Care Team Related Persons Name: MAYITO GRIDER [...] BE BASED ON THE PRIMARY CLINICAL RECORDS. [facility] [employer] [facility]. provides no warranty or guarantee of the accuracy or completeness of information in this document.
--- NOTE | 2023-04-07 18:28 | PN.HOSP_ITS ---
Reason for Visit Reason for Visit: Right shoulder pain Subjective Subjective Mrs. Lopez is an 83-year-old white female who was admitted electively to the hospital at [facility] for a reverse right total shoulder arthroplasty with Dr. Carrillo. She had suffered from persistent right shoulder pain and weakness and imaging revealed rotator cuff tear arthropathy of the right shoulder. She failed nonoperative outpatient management and a reverse t otal shoulder arthroplasty was recommended. We have been consulted postoperatively for medical management. Patient was seen postoperatively on the medical floor. Pt denies any significant pain. No issues currently and is tired and would like to go to sleep. Objective Data Objective Data Vital Signs: Vital Signs Temp Pulse Resp BP Pulse Ox O2 Del Method O2 Flow Rate 97.2 F L 80 14 129/80 H 99 Nasal Cannula 4 04/07/23 17:03 04/07/23 17:03 04/07/23 17:03 04/07/23 17:03 04/07/23 17:03 04/07/23 17:03 04/07/23 17:03 Oxygen Flow Rate (L/min) 4 Oxygen Delivery Method Nasal Cannula Weight: 70.579 kg Body Mass Index (BMI) 31.4 Intake & Output: Intake and Output for Last 24 Hours 04/05/23 04/06/23 04/07/23 23:59 23:59 23:59 Intake Total 1822 / 1822 Balance 1822 / 1822 Lab / Micro Data 03/11/23 12:49 03/11/23 12:49 Labs: Laboratory Results - last 24 hr 04/07/23 12:43: POC Glucose 117 H Micro: Microbiology 03/11/23 12:49 Swab (Method) Nasal Screen MRSA/MSSA - Final Radiography Diagnostic Testing: Radiology Impression Shoulder X-Ray 04/07/23 15:35 IMPRESSION: Right shoulder prosthesis showing expected postoperative changes in normal alignment. Electronically Signed: Tarun Jones DO at 15:51 EST , Physical Exam Const alert, oriented x3, no apparent distress, healthy appearing and well nourished Constitutional Narrative: Obese, older, white female, sitting up in bed, appears comfortable, nontoxic HEENT head/scalp atraumatic and moist oral mucous membranes HEENT Narrative: Dentures in place, Mallampati 3, no thrush Head and Scalp: normocephalic Resp normal respiratory effort, no retractions, no use of accessory muscles and clear to auscultation bilaterally Auscultation: Negative for rales, rhonchi or wheezes Cardio regular rate, regular rhythm, S1 normal heart sound, S2 normal heart sound, no murmurs, no rub, no gallops and no clicks GI normal to inspection, nondistended, normoactive bowel sounds, soft to palpation and non-tender Extremity no clubbing, cyanosis or edema Extremity Narrative: Right upper extremity in postoperative sling Neuro oriented x3 Neuro Narrative: Moves all extremities except right upper extremity due to postoperative restrictions, no focal deficits Psych affect normal Psych Narrative: Very pleasant, interacts appropriately Assessment & Plan Assessment/Plan (1) Right shoulder pain: PLAN: Plan Right shoulder pain -postop day 0 for right total shoulder arthroplasty -Pain management per primary service -Would recommend bowel regimen -PT/OT per primary service -Patient to be nonweightbearing right upper extremity -Postop follow-up in 2 weeks Hypertension -Continue home lisinopril Hyperlipidemia -Continue home lovastatin Hypothyroidism -continue home levothyroxine Vitamin D deficiency -Restart vitamin D supplementation weekly at discharge Obesity -Recommend weight loss next-BMI 31.4 DVT prophylaxis -Per primary service Capacity Legal Bicycle Ii Assembler Reflex Medical hold order details:: IF a medical hold is selected below, a suggested order for a MEDICAL HOLD will reflex upon signing the document. Next of kin: [place] law dictates a PRIORITY LIST for identifying legal decision-maker/legal next of kin in the following order (LNOK): 1st: The patient?s legal guardian, if any 2nd: The patient's spouse (if status is questionable, consult Risk Management) 3rd: The patient?s adult child(katlin) (majority, if multiple children) 4th: The patient?s parents 5th: The patient?s adult siblings (majority, if multiple children siblings) Charges/Coding Visit Charges Inpatient E&M: 13632 Subs Hosp L2
[2023-04-07] MEDS: Senna/Docusate Sodium 1 Tablet 2 TABLET PO (21:46)
[2023-04-08] VITALS (9 sets, daily range): BP systolic 93–137; BP diastolic 56–88; PULSE 79–96; RESP 16–18; TEMP 36.4–37.1; O2SAT 87–97
[2023-04-08] MEDS: Cefazolin 1 GM/50 ML BAG IV (00:22)
[2023-04-08] MEDS: Levothyroxine 25 MCG TABLET PO (06:09)
[2023-04-08] MEDS: Acetaminophen 500 MG Tablet 1000 MG PO ×2 (06:09→14:01)
[2023-04-08 06:24] LABS: Hematocrit 39.6 % (37-47); Mean Corp Hgb Conc 32.8 g/dL (32-36); Mean Corpuscular Hgb 29.1 pg (27.0-32.0); Mean Corpuscular Volume 88.8 fL (81-99); Mean Platelet Vol. 10.7 fl (6.2-12.0); Platelet Count 273 K/mm3 (150-450); RBC Distribution Width CV 13.4 % (11.6-14.6); RBC Distribution Width SD 43.8 fl (35.1-43.9); Red Blood Count 4.46 M/mm3 (4.2-5.4); White Blood Count 12.6 K/mm3 (4.4-11.0)
[2023-04-08 06:46] LABS: Anion Gap 8 (5-15); BUN 15 mg/dL (7-18); BUN/Creat Ratio 18.2 RATIO (10-20); Calcium,Total 9.1 mg/dL (8.5-10.1); Chloride 108 mmol/L (98-107); Creatinine, Serum 0.82 mg/dL (0.55-1.02); EST Glomerular Filtration Rate 71 mL/min (>60); Est Glom Filt Rate - Afr Amer 86 mL/min (>60); Estimated Creatinine Clearance 46.37 ml/min; Glucose 140 mg/dL (74-106); Potassium 4.5 mmol/L (3.5-5.1); Sodium Level 138 mmol/L (136-145)
[2023-04-08] MEDS: Senna/Docusate Sodium 1 Tablet 2 TABLET PO (08:38)
[2023-04-08] MEDS: Aspirin E.C. 81 MG Tablet PO (08:38)
[2023-04-08] MEDS: Atorvastatin Calcium 10 MG Tablet PO (08:39)
--- NOTE | 2023-04-08 11:25 | CASEMGMT ---
Social Work SW spoke w/pt and daughter Kayla in the room. SW asked pt if able to bring in POW/LW in the future, pt states understanding. SW did verify w/pt that Kayla is her POA for healthcare. THIAGO Monae
[2023-04-08] MEDS: Lisinopril 20 MG Tablet PO (12:06)
[2023-04-08] MEDS: 0.9% NaCl Peripheral Flush Adult/Peds IV (12:06)
[2023-04-08] MEDS: oxyCODONE 5 MG Tablet PO (12:07)
--- NOTE | 2023-04-08 13:20 | CASEMGMT ---
TREV GENTILE Assessment Face to Face with patient for initial transition planning/care coordination assessment. TREV GENTILE introduced self and role at [facility], pt voices understanding. Pt is A&Ox4 and is resting comfortably in chair and is calm. Care providers, pharmacy, and demographics verified. Admitting dx: Rt Reverse Total Shoulder LACE Strata: 1 PCP: Kelly Specialists: Lorena Mcgraw Pharmacy: [facility] Insurance:[facility], Pact Prescription Benefit: Yes LNOK: Bisi Lopez (Daughter) Living Arrangements: Pt lives with her daughter in a one story home with a basement with handrails with 2 steps to enter. Pt denies issues entering the home. ADLs/IADLs: States ind with all ADLs Transportation: Pt does not drive but her daughter drives her DME: Pt states she does not use DME but has some equipment at home. Walker x2. Cane, knee scooter, shower chair and a walk in shower. HHC/SNF: Denies history or needs. Pt?s goal: Home Plan: DC home today with her daughter with no additional needs at this time. Vidya Lowery RN, CM
--- NOTE | 2023-04-08 13:35 | PCM.PN.ORT ---
Subjective Subjective patient is s/p right reverse total shoulder arthroplasty with Dr. Carrillo 04/07/2023. Patient resting comfortably in bed. Rates pain 2/ 10 at rest. With movement 5/10. States taking Tylenol and oxycodone as needed and ice help to relieve pain. Patient maintaining sling at all times.. Afebrile, no chest pain, shortness of breath, negative calf pain/ erythema, and no other signs of DVT. Objective Data Objective Data Vital Signs: Vital Signs Temp Pulse Resp BP Pulse Ox O2 Del Method O2 Flow Rate 98.7 F 96 16 137/61 H 92 Room Air 0 04/08/23 11:57 04/08/23 11:57 04/08/23 11:57 04/08/23 11:57 04/08/23 11:57 04/08/23 11:57 04/08/23 11:51 Oxygen Flow Rate (L/min) [ 0 AMBULATING on Room Air] Oxygen Flow Rate (L/min) [At 0 REST on Room Air] Oxygen Flow Rate (L/min) 2 Oxygen Delivery Method Room Air Weight: 70.579 kg Body Mass Index (BMI) 31.4 Intake & Output: Intake and Output for Last 24 Hours 04/06/23 04/07/23 04/08/23 23:59 23:59 23:59 Intake Total 2 / 1821 50 / 50 Balance 1821 / 1821 50 / 50 Lab / Micro Data 04/08/23 06:02 04/08/23 06:02 Labs: Laboratory Results - last 24 hr 04/08/23 06:02: WBC 12.6 H, RBC 4.46, Hgb 13.0, Hct 39.6, MCV 88.8, MCH 29.1, MCHC 32.8, RDW Std Deviation 43.8, RDW Coeff of [place] 13.4, Plt Count 273, MPV 10.7, Sodium 138, Potassium 4.5, Chloride 108 H, Carbon Dioxide 22.0, Anion Gap 8, BUN 15, Creatinine 0.82, Estim Creat Clear Calc 46.37, Est GFR (MDRD) Af Amer 86, Est GFR (MDRD) Non-Af 71, BUN/Creatinine Ratio 18.2, Glucose 140 H, Calcium 9.1 Micro: Microbiology 03/11/23 12:49 Swab (Method) Nasal Screen MRSA/MSSA - Final Radiography Diagnostic Testing: Radiology Impression Shoulder X-Ray 04/07/23 15:35 IMPRESSION: Right shoulder prosthesis showing expected postoperative changes in normal alignment. Electronically Signed: Tarun Jones DO at 15:51 EST , Physical Exam Narrative Patient resting comfortably in bed No signs of acute distress Satting well on room air Limb is warm to touch, Sensation intact throughout entire upper extremity Intact to axillary, ulnar, median, radial nerve distribution Radial pulses bounding Dressing clear dry intact Calf nontender to palpation, no erythema, no edema. Negative Homans Assessment & Plan Assessment/Plan (1) History of total replacement of right shoulder joint: PLAN: Plan 1. Maintain sling at all times nonweightbearing right upper extremity. 2. plan for discharge this afternoon 3. Patient will follow up for post op appointment on 04/22/2023 4. Patient has outpatient PT appointment on 04/22/2023 5. WBC 12.6 acute reactive leukocytosis: secondary to pre operative decadron. no acute systemic signs of infection. will monitor, and likely self resolve. 6. No post operavtive anemia 7. DVT prophylaxis : Aspirin 1 mg twice daily x 2 weeks 8. Pain control: patient instructed to take tylenol 500mg 2 tablets TID. and oxycodone 1-2 tablets every 4-6 hours only as needed for pain control. 9. ok to remove post op dressing. post op day 7
--- NOTE | 2023-04-08 13:38 | DCINST_ITS ---
Discharge Instructions Diet Discharge Diet: No restrictions Activity Weight Bearing Status: No weight bearing Lifting Restrictions: right upper extremity Additional Activity Instructions:: maintain sling at all times. Dressing / Incision Call your doctor if your incision/area has: Continuous Slow Oozing, Sudden Increased Bleeding, Increased Pain/ Swelling, Increased Redness, Foul Smelling Discharge and Swelling at the incision site Call your doctor if you observe: Fever of 101 or Higher, Inability to have a bowel movement, Shortness of breath, Dizziness, Chest pain, Increased palpitations (irregular heartbeat) and Calf discomfort Suture Line Care: Avoid Pulling/Pushing Remove Dressing in: 1 week Cleanse incision/area with: Soap & Water and Keep Dressing Clean & Dry Follow Up Care Please Follow Up With: Yuni Lopez PA When: On 04/22/2023 as previously scheduled. Test Results: Test results from this visit will be discussed in further detail at your follow- up appointment, if applicable. Discharge Plan Admission Admit Date/Time: 04/07/23 15:09 Attending Provider: Migue Carrillo Primary Care Provider: Josué Mendoza NP Consulting Providers: Carmen Peacock; Tong Whitfield Discharge Orders/Prescriptions Prescriptions: No Action PNV cmb#[id number]-ferrous fumarate-FA [] 28 mg iron- 800 mcg tablet 1 tab PO DAILY lovastatin 40 mg tablet 40 mg PO DAILY levothyroxine 25 mcg tablet 25 mcg PO DAILY fosinopril 20 mg tablet 20 mg PO DAILY omega 5-kyn-nph-fish oil [Fish Oil] 1,200 (144-216) mg capsule 1 cap PO DAILY ergocalciferol (vitamin D2) [Vitamin D2] 1,250 mcg (50,000 unit) capsule 50,000 unit PO QWEEK aspirin 325 mg capsule 325 mg PO DAILY diclofenac sodium 50 mg tablet,delayed release (DR/EC) 50 mg PO Q12H PRN (Reason: pain) acetaminophen [Acetaminophen Extra Strength] 500 mg tablet 500 mg PO Q8 PRN (Reason: pain) Other Ambulatory Orders: 12 Lead EKG (Routine) Timeframe: [id number] Location: None Selected Ordered By: Dr. Migue Carrillo Referrals / Follow Up: Josué Mendoza LEADERSHIP DEVELOPMENT CONSULTANT, LEADERSHIP DEVELOPMENT CONSULTANT-C [Primary Care Provider] -
--- NOTE | 2023-04-08 14:11 | CHAPLAIN ---
Type of Pastoral Visit _x__ Initial Visit ___ Follow-up Visit ___ On-call Visit ___ General Patient Visit ___ Spiritual Assessment ___ Family Conference ___ Bereavement ___ Rapid Response ___ Code Blue ___ Other (describe below) Pastoral Care Referral From _x__ Patient ___ Family ___ Nurse ___ Physician ___ Industrial Relations Representative ___ Wool Batting Worker ___ Other (describe below) Sacrament/Intervention _x__ Active listening ___ Anointing ___ Protestant ___ Bereavement ___ Communion _x__ Yudy exploration ___ _x__ Life review _x__ Prayer ___ Reconciliation ___ Sacrament of Sick ___ Supportive presence ___ Wedding ___ Other (describe below) Pastoral Comments patient is post op from yesterday and is being discharged for this afternoon; pt states that she feels good about the surgery, that her live in daughter who is also a nurse will be able to assist her, and that her yudy in God will see her through this time; pt recounts some difficult situations in the past including the cancer deaths of her and son and that God was faithful and present in it all; pt welcomes time to visit and prayers
== END 2023-04-08 16:35 | disposition home or self-care (01) ==
LOC: SDC 16:25 → MS3 16:25
PROVIDERS: Anesthesiology; Admitting Provider Student in an Organized Health Care Education/Training Program; PCP Nurse Practitioner Family; Referring Provider Student in an Organized Health Care Education/Training Program; Visit Provider Student in an Organized Health Care Education/Training Program
PROC: (CPT 23472; principal; 2023-04-07 13:30)
DX: M12.811 Other specific arthropathies, not elsewhere classified, right shoulder (principal); M75.101 Unspecified rotator cuff tear or rupture of right shoulder, not specified as traumatic; I10 Essential (primary) hypertension; E78.00 Pure hypercholesterolemia, unspecified; E03.9 Hypothyroidism, unspecified; Z79.899 Other long term (current) drug therapy; Z79.890 Hormone replacement therapy; Z79.82 Long term (current) use of aspirin; E55.9 Vitamin D deficiency, unspecified; E66.9 Obesity, unspecified; Z68.31 Body mass index [BMI] 31.0-31.9, adult
CPT/HCPCS: 23472; 01638; 64415; 36415; 73030; 80048; 82040; 82962; 83735; 85025; 85027; 87077; 87081; 88305; 88311; 93005; 94668; 96365; 96366; 96367; 97166; 99221; C1776; J7120; A4216; G0378; J2405; J3475

== ENCOUNTER 2023-05-03 15:42 | Inpatient (IN) | payer MEDICARE, OTHER, SELFPAY ==
[2023-05-03] VITALS (9 sets, daily range): BP systolic 104–150; BP diastolic 78–92; PULSE 82–98; RESP 16–19; TEMP 36.3–37.1; O2SAT 90–96; BMI 32.1; BMI 30.4
--- NOTE | 2023-05-03 15:58 | CT_ITS ---
We are attempting to reach an attending provider to discuss findings. An addendum with communication details will be sent when the communication is complete. INDICATION: Neuro deficit, acute, stroke suspected EXAMINATION: CT BRAIN - CT Head Stroke Protocol W/O Contrast Injection TECHNIQUE: Multiple axial images were obtained of the head without intravenous contrast. A radiation dose optimization technique was used for this scan. IV Contrast dosage and agent: None. COMPARISON: FINDINGS: BRAIN PARENCHYMA: No intra- or extra-axial hemorrhage. No evidence of acute infarct. No intracranial mass or mass effect. Bilateral periventricular white matter microangiopathic ischemic changes. Possible small old right basal ganglia lacunar infarct. Posterior fossa structures are unremarkable. CSF SPACES: Appropriate for age. No hydrocephalus. Basal cisterns are patent. CALVARIUM, SKULL BASE, PARANASAL SINUSES AND MASTOID AIR CELLS: Small air-fluid level in the right maxillary sinus.. No discrete lytic or blastic abnormalities. ORBITS: Both globes, extraocular muscles, optic nerves and retrobulbar fat appear unremarkable. Focal right parietal scalp small hematoma/edema. CT/STROKE Brain/Head without Cont IMPRESSION: Age-related changes. No acute intracranial pathology. Electronically Signed: Barron Dupree DO at 16:16 EST Reading Location ID and State: [facility] / [place] Tel [phone], Service support ,
--- NOTE | 2023-05-03 15:58 | EKG12_ITS ---
Test Reason : POSS STROKE Blood Pressure : / mmHG Vent. Rate : 088 BPM Atrial Rate : 088 BPM P-R Int : 192 ms QRS Dur : 074 ms QT Int : 360 ms P-R-T Axes : 033 -14 010 degrees QTc Int : 435 ms Sinus rhythm with Premature atrial complexes Low voltage QRS Cannot rule out Inferior infarct , age undetermined Abnormal ECG Confirmed by Benedicto Aguiar ([id number]), web editor PONCHO PITT ([id number]) on 05/04/2023 11:00:04 AM Referred By: Confirmed By:Benedicto Aguiar
--- NOTE | 2023-05-03 15:58 | CT_ITS ---
We are attempting to reach an attending provider to discuss findings. An addendum with communication details will be sent when the communication is complete. INDICATION: Neuro deficit, acute, stroke suspected EXAMINATION: CTA HEAD, AND CTA NECK TECHNIQUE: Routine carotid CT angiogram protocol was performed without and with IV contrast. In addition, images were obtained of the [place] of [place]. NASCET criteria using the distal ICAs for comparison were used for evaluation of stenoses. 3D reconstructions were reviewed. A radiation dose optimization technique was used for this scan. IV Contrast dosage and agent: COMPARISON: FINDINGS: --CTA NECK: AORTIC ARCH AND BRANCHES: Normal anatomy, patent. RIGHT CCA: No occlusion, significant stenosis or dissection. RIGHT CAROTID BULB: Focal calcification with no hemodynamically significant stenosis. RIGHT ICA: No occlusion, significant stenosis or dissection. LEFT CCA: No occlusion, significant stenosis or dissection. LEFT CAROTID BULB: No occlusion, significant stenosis or dissection. LEFT ICA: No occlusion. Focal calcification at the proximal segment with no hemodynamically significant stenosis or dissection. RIGHT VERTEBRAL ARTERY: No occlusion, significant stenosis or dissection. LEFT VERTEBRAL ARTERY: No occlusion, significant stenosis or dissection. NECK SOFT TISSUES: Unremarkable. --CTA HEAD: --Anterior circulation: ICAs: No significant stenosis at the intracranial/visualized segments. ACAs: No significant stenosis at the visualized segments. ACOM: Present. MCAs: No significant stenosis at the visualized segments. --Posterior circulation: PCOMs: Nonvisualization bilaterally. sales support assistant: No significant stenosis at the visualized segments. BASILAR ARTERY: No significant stenosis. VERTEBRAL ARTERIES: No significant stenosis at the intradural/visualized segments. No evidence of intracranial aneurysm or vascular malformation. CT/STROKE CTA Head AND Neck W/Con IMPRESSION: Negative CTA Carotid, and CTA Brain. Electronically Signed: Barron Dupree DO at 16:37 EST ,
--- NOTE | 2023-05-03 16:01 | ED.RN ---
See triage note, pt stated bilateral legs felt heavy , left arm felt funny , unable to use right arm due to surgery. Pt states she feels back to baseline currently except a little nauseous from riding in squad. NIHSS 0 in triage. This RN spoke to ED MD, no stroke alert as pt has no deficits. After this RN returned to triage, pt's daughter present and voices concerns that pt's voice is not normal for her, a little slurry . This RN spoke to ED MD again, stroke alert now called.
--- NOTE | 2023-05-03 16:01 | NURSING ---
[id number] STROKE ALERT CALLED
--- NOTE | 2023-05-03 16:14 | EDS_ITS ---
HPI History of Present Illness Chief Complaint: Fall Informant: patient and family Narrative Narrative: Patient had some transient neurologic deficits. History is from patient and her daughter. This patient had laying down to take a nap at 1 PM today. She felt perfectly normal then. She woke up at 3. Noticed maybe she was a little bit weak going to the restroom but did not think much of it. She was trying to pull her pants up and her left arm would not work as normal. She was also trying to get the lid off of a water jug and her left hand would not work the Like it normally would. She started to walk out to get her daughter and she fell. She bumped her head but did not lose consciousness. She states she was not syncopal. She was just too weak to walk because of her legs. It felt like both legs. Patient now feels back to normal. The patient's daughter states she thinks her voice is just subtly different than normal but she is otherwise totally back to normal. She has never had any stents or TIA or stroke. She did recently have surgery in the right shoulder on 07 April and has been recovering. Therefore there is limited use of the right shoulder but it has been improving and it did not appear to be affected with today's event. [facility] Medical History (Updated 05/03/23 @ 17:[address] Carmen Peacock DO) High cholesterol History of echocardiogram Hypertension Loss of hearing Thyroid disease Home Medications acetaminophen 500 mg tablet (Acetaminophen Extra Strength) 500 mg PO Q8 PRN pain 03/09/23 [History Last Taken Unknown] aspirin 325 mg capsule 325 mg PO DAILY 03/09/23 [History Last Taken 04/01/23] diclofenac sodium 50 mg tablet,delayed release 50 mg PO Q12H PRN pain 03/09/23 [History Last Taken Unknown] ergocalciferol (vitamin D2) 1,250 mcg (50,000 unit) capsule (Vitamin D2) 50,000 unit PO QWEEK 03/09/23 [History Last Taken 04/01/23] fosinopril 20 mg tablet 20 mg PO DAILY 03/09/23 [History Last Taken 04/06/23] levothyroxine 25 mcg tablet 25 mcg PO DAILY 03/09/23 [History Last Taken 04/06/23] lovastatin 40 mg tablet 40 mg PO DAILY 12/20/23 [History Last Taken 04/07/23] omega 0-jln-qms-fish oil 1,200 mg (144 mg-216 mg) capsule (Fish Oil) 1 cap PO DAILY 03/09/23 [History Last Taken 04/01/23] vit no.95-ferrous fumarate 28 mg-folic acid 800 mcg tablet () 1 tab PO DAILY 03/09/23 [History Last Taken 04/01/23] aspirin 81 mg tablet,delayed release 81 mg PO BID 14 days #28 tabs 04/08/23 [Rx Last Taken Unknown] oxycodone 5 mg tablet 5 - 10 mg (1 - 2 x 5 mg) PO .q4-6hrs prn PRN Pain Score 4- 10 7 days #30 tabs 04/08/23 [Rx Last Taken Unknown] sennosides 8.6 mg-docusate sodium 50 mg tablet (Stool Softener-Stimulant Laxative) 2 tab PO BID #14 tabs 04/08/23 [Rx Last Taken Unknown] Allergy/AdvReac Type Severity Reaction Status Date / Time amoxicillin [From Augmentin] AdvReac Intermediate Rash Verified 05/03/23 15:49 clavulanic acid AdvReac Intermediate Rash Verified 05/03/23 15:49 [From Augmentin] Surgical History (Updated 05/03/23 @ 17:[address] Carmen Peacock DO) History of appendectomy History of carpal tunnel release History of dental surgery History of hysterectomy History of tonsillectomy History of total replacement of right shoulder joint Social History Smoking Status: Never smoker ROS ROS ED Constitutional Constitutional ED: Denies chills, fever(s) or subjective Eyes Eyes: Denies change in vision ENT ENT ED: Denies rhinorrhea Cardiovascular Cardiovascular: Denies chest pain, palpitations or racing heartbeat Respiratory/Chest Respiratory/Chest: Denies cough or dyspnea Gastrointestinal Gastrointestinal: Denies nausea or vomiting Genitourinary Genitourinary ED: Denies hematuria Musculoskeletal Musculoskeletal: Reports other Details: Soreness in her right shoulder since surgery but slowly improving and she has been doing very good therapy. Integumentary Denies rash Neurologic Neurologic: Reports other Details: See history of present illness. ; Denies headache(s) Hematologic/Lymphatic Hematologic/Lymphatic: Reports other Details: Only blood thinner is a baby aspirin ; Denies easy bleeding or easy bruising Allergic/Immunologic Allergic/Immunologic ED: Denies urticaria EXAM Physical Exam Narrative Exam Narrative: CONSTITUTIONAL: Patient is nontoxic in appearance. The patient looks comfortable. Work of breathing looks normal. I see her first when she is coming back from her CT. HEENT: Slight swelling in the posterior right occipital area but no tenderness or step-off. No laceration. No facial trauma. EYES: No conjunctival injection. No proptosis. Range of motion is normal. Pupillary response is normal. Gross visual umanzor are normal to confrontation. NECK:No JVD. No stridor. CARDIOVASCULAR: Regular rate. Regular rhythm. No notable murmur. No JVD. RESPIRATORY: No respiratory distress. Breathing is unlabored. No wheezes. Saturations are normal at 96% on room air showing no hypoxia. GASTROINTESTINAL: Not distended. Bowel sounds are normal. No tenderness. GENITOURINARY: No tenderness over the bladder. No CVA tenderness. MUSCULOSKELETAL: Well-healed anterior surgical incision around the right shoulder. NEUROLOGICAL: Patient is alert and appropriate. No focal deficit noted. There are limits lifting her right arm but she lifts it up reasonably well and holds it quite still. No sensory changes. Although her daughter notices some subtle voice change I do not notice this and at this point she appears to have an NIH score of 0. SKIN: No noted rashes. No diaphoresis. Healing wound as above. PSYCHIATRIC: Patient is calm. Mood is appropriate. Const Vital Signs: 05/03/23 15:45 05/03/23 16:10 05/03/23 16:17 Temperature 97.8 F Temperature Source Temporal Pulse Rate 95 89 Respiratory Rate 16 18 Respiratory Effort Respiratory Depth Respiratory Pattern Blood Pressure 135/92 H 150/78 H Blood Pressure Mean 106 102 Pulse Ox 96 92 Oxygen Delivery Method Room Air Room Air Room Air 05/03/23 16:17 05/03/23 16:20 05/03/23 16:21 Temperature Temperature Source Pulse Rate 98 Respiratory Rate 19 H Respiratory Effort Normal Non-Labored Normal Non-Labored Respiratory Depth Normal Respiratory Pattern Normal Normal Blood Pressure 150/78 H Blood Pressure Mean 102 Pulse Ox 94 Oxygen Delivery Method Room Air Room Air 05/03/23 16:30 Temperature 98.7 F Temperature Source Oral Pulse Rate 90 Respiratory Rate 18 Respiratory Effort Respiratory Depth Respiratory Pattern Blood Pressure 148/82 H Blood Pressure Mean 104 Pulse Ox 90 Oxygen Delivery Method Room Air MDM MDM MDM Narrative Medical decision making narrative: I discussed case with the radiologist at 16: 16 and there is no acute process seen on the plain CT. My independent reading was also negative other than chronic age-related changes. I also discussed radiologist CTA was normal. CBC showed mild elevation platelets only. Electrolytes are overall unremarkable there may be a slight component of dehydration. Troponin is negative. Glucose is normal. My depend interpretation of single view chest x-ray and final reading is no acute. Symptoms have remained resolved. I also discussed with and patient was seen by neurology on the video screen. Plan will be admission and further workup. Lab Data Attestation: I reviewed the patient's lab results. Labs: Laboratory Results - last 24 hr 05/03/23 05/03/23 16:01 16:09 WBC 9.6 RBC 4.67 Hgb 13.8 Hct 42.0 MCV 89.9 MCH 29.6 MCHC 32.9 RDW Std Deviation 44.0 H RDW Coeff of [place] 13.4 Plt Count 489 H MPV 9.9 Immature Gran % (Auto) 0.300 Neut % (Auto) 49.0 Lymph % (Auto) 32.8 [place] % (Auto) 14.1 H Eos % (Auto) 2.8 Baso % (Auto) 1.0 Absolute Neuts (auto) 4.7 Absolute Lymphs (auto) 3.15 Nucleated RBC % 0 PT 13.5 INR 1.0 APTT 27.0 Sodium 141 Potassium 4.4 Chloride 111 H Carbon Dioxide 25.0 Anion Gap 5 BUN 22 H Creatinine 1.17 H Estim Creat Clear Calc 32.88 Est GFR (MDRD) Af Amer 57 L Est GFR (MDRD) Non-Af 47 L BUN/Creatinine Ratio 18.8 Glucose 106 Calcium 10.3 H Troponin I High Sens 5 POC Glucose 89 Radiography Diagnostic Testing: Clinical Impression(s) from Imaging Studies Brain CT 05/03/23 15:58 IMPRESSION: Age-related changes. No acute intracranial pathology. Electronically Signed: Barron Dupree DO at 16:16 EST Reading Location ID and State: [facility] / [place] Tel [phone], Service support , ADDENDUM: 05/03/23 1623 IMPRESSION: Age-related changes. No acute intracranial pathology. N.B. : The above Results were Read Back by Barron Dupree DO to Alex العراقي MD, and understanding confirmed on 05/03/2023 16:16:47 (ET). Electronically Signed: Barron Dupree DO at 16:16 EST , Head/Neck CTA 05/03/23 15:58 IMPRESSION: Negative CTA Carotid, and CTA Brain. Electronically Signed: Barron Dupree DO at 16:37 EST , ADDENDUM: 05/03/23 1651 IMPRESSION: Negative CTA Carotid, and CTA Brain. N.B. : The above Results were Read Back by Barron Dupree DO to Alex العراقي MD, and understanding confirmed on 05/03/2023 16:45:02 (ET). Electronically Signed: Barron Dupree DO at 16:37 EST , Chest X-Ray 05/03/23 16:30 IMPRESSION: No radiographic evidence of acute cardiopulmonary disease. Electronically Signed: Barron Dupree DO at 16:59 EST , Discharge Plan Triage Chief Complaint: Fall Other Complaint: Weakness ED Provider: Alex العراقي Dx/Rx/DC Orders Clinical Impression: Hx of hypercholesterolemia, Brain TIA, Status post reverse arthroplasty of right shoulder, Left-sided weakness Prescriptions: No Action PNV cmb#95-ferrous fumarate-FA [] 28 mg iron- 800 mcg tablet 1 tab PO DAILY lovastatin 40 mg tablet 40 mg PO DAILY levothyroxine 25 mcg tablet 25 mcg PO DAILY fosinopril 20 mg tablet 20 mg PO DAILY omega 7-rlh-ner-fish oil [Fish Oil] 1,200 (144-216) mg capsule 1 cap PO DAILY ergocalciferol (vitamin D2) [Vitamin D2] 1,250 mcg (50,000 unit) capsule 50,000 unit PO QWEEK aspirin 325 mg capsule 325 mg PO DAILY Hold Instructions: Resume on 04/22/23. diclofenac sodium 50 mg tablet,delayed release (DR/EC) 50 mg PO Q12H PRN (Reason: pain) acetaminophen [Acetaminophen Extra Strength] 500 mg tablet 500 mg PO Q8 PRN (Reason: pain) aspirin 81 mg Tablet,Delayed Release (Dr/Ec) 81 mg PO BID 14 Days Qty: 28 0RF oxycodone 5 mg Tablet 5 - 10 mg PO .q4-6hrs prn PRN (Reason: Pain Score 4-10) 7 Days Qty: 30 0RF sennosides-docusate sodium [Stool Softener-Stimulant Laxat] 8.6-50 mg Tablet 2 tab PO BID Qty: 14 0RF Primary Care Provider: Josué Mendoza NP Referrals: Josué Mendoza NP, EXCEPTIONAL STUDENT EDUCATION AIDE-C [Primary Care Provider] - Disposition Disposition: Acute Care Hospital [facility]
[2023-05-03 16:19] LABS: Absolute Lymphocyte Count 3.15 X10^3/uL (0.83-4.51); Absolute Neutrophil Count 4.7 X10^3/uL (2.0-7.7); Eosinophil# 0.27 X10^3/uL; Eosinophils% 2.8 % (0-5); Hemoglobin 13.8 g/dL (12.0-15.0); Lymphocyte # 3.15 X10^3/ul (0.83-4.51); Lymphocyte % 32.8 % (19-41); Mean Corp Hgb Conc 32.9 g/dL (32-36); Mean Corpuscular Hgb 29.6 pg (27.0-32.0); Mean Corpuscular Volume 89.9 fL (81-99); Mean Platelet Vol. 9.9 fl (6.2-12.0); Monocyte# 1.35 X10^3/uL; Monocyte% 14.1 % (0-10); NRBC Flagged by Analyzer 0 % (0-5); Platelet Count 489 K/mm3 (150-450); RBC Distribution Width CV 13.4 % (11.6-14.6); Red Blood Count 4.67 M/mm3 (4.2-5.4); White Blood Count 9.6 K/mm3 (4.4-11.0)
--- NOTE | 2023-05-03 16:22 | CHAPLAIN ---
Type of Pastoral Visit ___ Initial Visit ___ Follow-up Visit ___ On-call Visit ___ General Patient Visit ___ Spiritual Assessment ___ Family Conference ___ Bereavement _x__ Rapid Response ___ Code Blue ___ Other (describe below) Pastoral Care Referral From ___ Patient ___ Family ___ Nurse ___ Physician ___ Well Services Operator ___ Bale Opener _x__ Other (describe below) Sacrament/Intervention _x__ Active listening ___ Anointing ___ Hindu ___ Bereavement ___ Communion ___ Yudy exploration ___ ___ Life review ___ Prayer ___ Reconciliation ___ Sacrament of Sick _x__ Supportive presence ___ Wedding ___ Other (describe below) Pastoral Comments responded to stroke alert in ED; daughter of patient is waiting and is offered support, cup of water, someone to talk with, and be present while she waited; pt was taken directly to CT for a scan; no other family members are expected to come to the hospital; daughter states that she appreciates the support and the water but that she should be fine at this point
[2023-05-03 16:28] LABS: Bedside Glucose 89 mg/dL (74-106)
--- NOTE | 2023-05-03 16:30 | RAD_ITS ---
INDICATION: Neuro deficit, acute, stroke suspected EXAMINATION/TECHNIQUE: X-RAY - XR Chest 1 View COMPARISON: FINDINGS: LINES/DEVICES: None. LUNGS: No consolidation, edema or effusion. No pneumothorax. MEDIASTINUM AND CARDIOVASCULAR STRUCTURES: Cardiac silhouette not enlarged. Central airways and mediastinal contour are unremarkable. BONES AND SOFT TISSUES: There is a right shoulder prosthesis. RAD/Chest 1 View IMPRESSION: No radiographic evidence of acute cardiopulmonary disease. Electronically Signed: Barron Dupree DO at 16:59 EST ,
[2023-05-03 16:34] LABS: Prothrombin Time (Protime)PT. 13.5 SECONDS (11.7-14.9)
[2023-05-03 16:35] LABS: Anion Gap 5 (5-15); BUN 22 mg/dL (7-18); BUN/Creat Ratio 18.8 RATIO (10-20); Calcium,Total 10.3 mg/dL (8.5-10.1); Chloride 111 mmol/L (98-107); Creatinine, Serum 1.17 mg/dL (0.55-1.02); EST Glomerular Filtration Rate 47 mL/min (>60); Est Glom Filt Rate - Afr Amer 57 mL/min (>60); Estimated Creatinine Clearance 32.88 ml/min; Glucose 106 mg/dL (74-106); Potassium 4.4 mmol/L (3.5-5.1); Sodium Level 141 mmol/L (136-145); Troponin-I HS 5 pg/mL (3.0-54.0)
--- NOTE | 2023-05-03 17:26 | HP.PCM.HOS_ITS ---
[facility] - General General Date of Admission: 05/03/23 Date of Service: 05/03/23 Chief Complaint: L sided weakness HPI Narrative HARRISON GRIDER, is a 83 F who presented to the ED at [facility] on 05/03/2023 with the chief complaint of left sided weakness. Patient states she went to take a nap at 1 PM and woke up at 3 PM and got up to use the bathroom and noted she had significant weakness on the left side. Patient recently underwent a reverse right total shoulder arthroplasty and is right-hand dominant however has been using her left arm persistently due to her arthroplasty. She indicated she tried to pull up her pants and had significant issues doing so. She then tried to get the lid off of a water jug with her left hand and was not able to do so. She indicated typically this had not been a problem. She started to walk out to get her daughter because of these issues and had a fall. She states her legs felt weak and like they would not hold her up. She bumped her head but did not lose consciousness and indicates the fall was not syncopal it was due to her weakness. Upon presentation the patient was feeling close to normal. The daug hter indicated that her weakness seemed to be resolved however her voice seems to be off some. She was taking aspirin as DVT prophylaxis and was on 81 mg daily recently decreasing the dose from 325 mg daily. At the time of my evaluation, just prior to my arrival she developed some left-sided facial weakness and neuro was reevaluating her. The weakness seems to be minimal. She had no weakness in her arm or leg at that time and her daughter indicated her speech seemed to be a little bit worse than it had been earlier. Nursing agreed. Vital signs on presentation demonstrated temperature of 97.8, heart rate 95, blood pressure was 135/92, respiratory was 16 oxygen saturations were 96% on ro om air. CBC was overall unremarkable other than a mild thrombocytosis with a platelet count of 489,000. She had a mild monocytosis with a 14.1% shift. Coags were normal. Chemistry panel revealed mildly elevated chloride, BUN, and serum creatinine from baseline. Calcium was slightly elevated at 10.3 as well. Her troponin was normal at 5. EKG showed normal sinus rhythm with normal intervals and no ST-T wave changes concerning for acute ischemia. CT of the brain was unremarkable for any acute intracranial findings and showed a focal right parietal scalp hematoma. CTA of the head and neck were unremarkable for any stenosis or LVO. Chest x-ray is unremarkable for any acute findings. [facility] Medical History High cholesterol History of echocardiogram Hypertension Loss of hearing Thyroid disease Home Medications acetaminophen 500 mg tablet (Acetaminophen Extra Strength) 500 mg PO Q8 PRN pain 03/09/23 [History Last Taken Unknown] aspirin 325 mg capsule 325 mg PO DAILY 03/09/23 [History Last Taken 04/01/23] ergocalciferol (vitamin D2) 1,250 mcg (50,000 unit) capsule (Vitamin D2) 50,000 unit PO QWEEK 03/09/23 [History Last Taken 04/01/23] fosinopril 20 mg tablet 20 mg PO DAILY 03/09/23 [History Last Taken 04/06/23] levothyroxine 25 mcg tablet 25 mcg PO DAILY 03/09/23 [History Last Taken 04/06/23] lovastatin 40 mg tablet 40 mg PO DAILY 03/09/23 [History Last Taken 04/07/23] omega 3-dsx-mqx-fish oil 1,200 mg (144 mg-216 mg) capsule (Fish Oil) 1 cap PO DAILY 03/09/23 [History Last Taken 04/01/23] vit no.95-ferrous fumarate 28 mg-folic acid 800 mcg tablet () 1 tab PO DAILY 03/09/23 [History Last Taken 04/01/23] oxycodone 5 mg tablet 5 - 10 mg (1 - 2 x 5 mg) PO .q4-6hrs prn PRN Pain Score 4- 10 7 days #30 tabs 04/08/23 [Rx Last Taken Unknown] sennosides 8.6 mg-docusate sodium 50 mg tablet (Stool Softener-Stimulant Laxative) 2 tab PO BID #14 tabs 04/08/23 [Rx Last Taken Unknown] fluconazole 150 mg tablet 150 mg PO DAILY 05/03/23 [History Last Taken Unknown] Allergy/AdvReac Type Severity Reaction Status Date / Time amoxicillin [From Augmentin] AdvReac Intermediate Rash Verified 05/03/23 15:49 clavulanic acid AdvReac Intermediate Rash Verified 05/03/23 15:49 [From Augmentin] Family History (Updated 05/03/23 @ 18:[address] Carmen Peacock DO) Other Hyperlipidemia Hypertension Surgical History History of appendectomy History of carpal tunnel release History of dental surgery History of hysterectomy History of tonsillectomy History of total replacement of right shoulder joint Social History (Updated 05/03/23 @ 18:[address] Carmen Peacock DO) household members: family housing: house Smoking Status: Never smoker alcohol intake: never substance use type: does not use ROS Constitutional Constitutional: Reports weakness; Denies anorexia, change in weight, chills, fatigue, fever(s), malaise, night sweats or other Eyes Eyes: Denies blurry vision, change in eye color, change in vision, discharge from eye(s), double vision, erythema, eye pain, loss of vision or other ENT HEENT: Denies abnormal hearing, dysphagia, ear pain, epistaxis, headache(s), hearing loss, nasal congestion, nasal discharge, post nasal drip, sinus pressure, sore throat or other Cardiovascular Cardiovascular: Denies chest pain, claudication, dyspnea on exertion, edema, lightheadedness, orthopnea, palpitations, paroxysmal nocturnal dyspnea, rapid heart rate, syncope or other Respiratory/Chest Respiratory/Chest: Reports cough; Denies dyspnea, excessive phlegm production, hemoptysis, productive cough, shortness of breath at rest, shortness of breath with exertion, wheezing or other Gastrointestinal Gastrointestinal: Denies abdominal pain, coffee ground emesis, constipation, diarrhea, dyspepsia, hematemesis, hematochezia, loose stools, melena, nausea, vomiting or other Genitourinary Genitourinary: Denies burning urination, difficulty urinating, dysuria, hematuria, nocturia, urinary frequency, urinary hesitancy, urinary incontinence, urinary urgency or other Musculoskeletal Musculoskeletal: Reports joint pain and joint stiffness; Denies arthralgias, back pain, joint swelling, myalgias, neck pain or other Neurologic Neurologic: Reports abnormal speech and focal weakness; Denies abnormal gait, confusion, disequilibrium, dizziness, headache(s), numbness, paresthesias, seizure-like activity, seizures, syncope, tingling, tremor(s) or other Psychiatric Psychiatric: Denies anxiety, depression, homicidal ideation, suicidal ideation or other Endocrine Endocrinology: Denies change in body appearance, cold intolerance, excessive sweating, heat intolerance, polydipsia, polyuria or other Hematologic/Lymphatic Hematologic/Lymphatic: Denies anemia, easy bleeding, easy bruising, lymphade nopathy or other Allergic/Immunologic Allergic/Immunologic: Denies rhinitis, hives, eczemia, asthma or other Vital Signs Vital Signs Vital Signs: 05/03/23 15:45 05/03/23 16:10 05/03/23 16:17 Temperature 97.8 F Temperature Source Temporal Pulse Rate 95 89 Respiratory Rate 16 18 Respiratory Effort Respiratory Depth Respiratory Pattern Blood Pressure 135/92 H 150/78 H Blood Pressure Mean 106 102 Pulse Ox 96 92 Oxygen Delivery Method Room Air Room Air Room Air 05/03/23 16:17 05/03/23 16:20 05/03/23 16:21 Temperature Temperature Source Pulse Rate 98 Respiratory Rate 19 H Respiratory Effort Normal Non-Labored Normal Non-Labored Respiratory Depth Normal Respiratory Pattern Normal Normal Blood Pressure 150/78 H Blood Pressure Mean 102 Pulse Ox 94 Oxygen Delivery Method Room Air Room Air 05/03/23 16:30 Temperature 98.7 F Temperature Source Oral Pulse Rate 90 Respiratory Rate 18 Respiratory Effort Respiratory Depth Respiratory Pattern Blood Pressure 148/82 H Blood Pressure Mean 104 Pulse Ox 90 Oxygen Delivery Method Room Air Weight Weight: 72.2 kg Body Mass Index (BMI) 32.1 Physical Exam Const alert, oriented x3, no apparent distress and well nourished; Negative for average body habitus or healthy appearing Constitutional Narrative: Obese, elderly, white female, sitting up in bed, appears comfortable and nontoxic, daughter at bedside, nursing at bedside General Appearance: cooperative HEENT normocephalic, hearing grossly normal bilaterally and moist oral mucous membranes HEENT Narrative: Small area of swelling in the right parietal area with focal tenderness in this area but no bleeding, Mallampati is 2-3, no thrush Eyes PERRL, EOMs intact bilaterally and conjunctivae normal Eyes Narrative: No scleral icterus Neck no lymphadenopathy, supple, no JVD and no carotid bruits Neck Narrative: Trachea midline, no thyroid enlargement Resp normal respiratory effort, no retractions, no use of accessory muscles and clear to auscultation bilaterally Auscultation: Negative for rales, rhonchi or wheezes Cardio regular rate, regular rhythm, S1 normal heart sound, S2 normal heart sound, no murmurs, no rub, no gallops and no clicks GI normal to inspection, nondistended, normoactive bowel sounds, soft to palpation and non-tender Extremity no clubbing, cyanosis or edema Extremity Narrative: Limited mobility with right arm due to recent right shoulder total arthroplasty Skin No no wounds, skin turgor normal, no jaundice, no petechiae and no mottling Skin Narrative: Well-healing surgical incision right shoulder, scattered seborrheic keratoses Neuro oriented x3, No CN's II-XII intact bilaterally and moves all extremities Neuro Narrative: Very minimal left facial droop noted with an equal upturning of the oral crease on the left and mild dysarthria, no drift with upper lower extremity strength, speech is completely intelligible but slightly garbled compared to baseline Speech: Negative for speech normal Psych affect normal Psych Narrative: Very pleasant, interacts appropriately Results Lab / Micro Data 05/03/23 16:01 05/03/23 16:01 Labs: Laboratory Results - last 24 hr 05/03/23 16:01: WBC 9.6, RBC 4.67, Hgb 13.8, Hct 42.0, MCV 89.9, MCH 29.6, MCHC 32.9, RDW Std Deviation 44.0 H, RDW Coeff of [place] 13.4, Plt Count 489 H, MPV 9.9, Immature Gran % (Auto) 0.300, Neut % (Auto) 49.0, Lymph % (Auto) 32.8, [place] % (Auto) 14.1 H, Eos % (Auto) 2.8, Baso % (Auto) 1.0, Absolute Neuts (auto) 4.7, Absolute Lymphs (auto) 3.15, Nucleated RBC % 0, PT 13.5, INR 1.0, APTT 27.0, Sodium 141, Potassium 4.4, Chloride 111 H, Carbon Dioxide 25.0, Anion Gap 5, BUN 22 H, Creatinine 1.17 H, Estim Creat Clear Calc 32.88, Est GFR (MDRD) Af Amer 57 L, Est GFR (MDRD) Non-Af 47 L, BUN/Creatinine Ratio 18.8, Glucose 106, Calcium 10.3 H, Troponin I High Sens 5 05/03/23 16:09: POC Glucose 89 Imaging Radiology Impression Brain CT 05/03/23 15:58 IMPRESSION: Age-related changes. No acute intracranial pathology. Electronically Signed: Barron Dupree DO at 16:16 EST , ADDENDUM: 05/03/23 1623 IMPRESSION: Age-related changes. No acute intracranial pathology. N.B. : The above Results were Read Back by Barron Dupree DO to Alex العراقي MD, and understanding confirmed on 05/03/2023 16:16:47 (ET). Electronically Signed: Barron Dupree DO at 16:16 EST , Head/Neck CTA 05/03/23 15:58 IMPRESSION: Negative CTA Carotid, and CTA Brain. Electronically Signed: Barron Dupree DO at 16:37 EST , ADDENDUM: 05/03/23 1651 IMPRESSION: Negative CTA Carotid, and CTA Brain. N.B. : The above Results were Read Back by Barron Dupree DO to Alex العراقي MD, and understanding confirmed on 05/03/2023 16:45:02 (ET). Electronically Signed: Barron Dupree DO at 16:37 EST , Chest X-Ray 05/03/23 16:30 IMPRESSION: No radiographic evidence of acute cardiopulmonary disease. Electronically Signed: Barron Dupree DO at 16:59 EST , Assessment & Plan Assessment/Plan (1) Left-sided weakness: (2) Dysarthria: (3) Thrombocytosis: (4) Dehydration: (5) Elevated serum creatinine: (6) Hypercalcemia: PLAN: Plan Left-sided weakness/dysarthria -Suspect TIA -CT of the brain and CTA of the head and neck are unremarkable -Check echocardiogram -Check MRI brain -Aspirin 81 mg daily -Atorvastatin 40 mg daily -Check hemoglobin A1c -Check lipid panel -PT/OT consultation -Bedside swallow -NIH per stroke order set -Allow for some permissive hypertension and will hold home lisinopril for now with as needed antihypertensives available -Neuro consultation -with new facial droop Neuro recommended IVF at 250 cc/h x 4 hours then I will reduce the rate to 100 cc/h for another 4 hours and then stop IV fluids Elevated serum creatinine secondary to dehydration -Baseline serum creatinine appears to be between 0.7 and 0.9 -Serum creatinine on admission was 1.17 -IV fluids given the emergency department and will give 1 L on the floor -Repeat BMP in a.m. -Hold home oral NSAIDs Thrombocytosis -Suspect related to dehydration -Repeat in a.m. Hypercalcemia -Mild -Appears to be related to dehydration -IV fluids and repeat in a.m. Recent R TSA -04/07/2023 -cont as needed pain medication -Tylenol 1000 mg every 8 hours -Outp atient follow-up as previously instructed Hypertension -Hold home lisinopril and allow for some permissive hypertension given findings on presentation -As needed antihypertensives available Hyperlipidemia -Check lipids -Atorvastatin 40 mg nightly Hypothyroidism -continue home levothyroxine -Check TSH Vitamin D deficiency -Restart vitamin D supplementation weekly at discharge Obesity -Recommend weight loss -BMI 32.1 DVT prophylaxis -Lovenox 40 mg daily CODE STATUS -DNR CCA okay for short-term intubation as reviewed at the time of admission Charges/Coding Visit Charges Inpatient E&M: 02050 Init Hosp L2
--- NOTE | 2023-05-03 17:33 | ED.RN ---
Dr العراقي gave verbal ordes to d/c the [facility]
--- NOTE | 2023-05-03 17:36 | ECHOCS_ITS ---
Reason For Study: TIA/Stroke Procedure This was a 2D Doppler, Color Flow transthoracic echocardiogram. Contrast injection was performed. Exam performed portable in patient room. Left Ventricle Normal LV size. Diastolic function is indeterminate. The estimated ejection fraction is 65 %. No regional wall motion abnormalities noted. Right Ventricle Normal RV size. Normal systolic function. Atria Normal left atrium. Normal right atrium. Bubble study is positive for right to left shunt. Mitral Valve There is mild to moderate mitral annular calcification. Calcification in submitral apparatus. There is no mitral valve stenosis. Trivial mitral valve insufficiency. Tricuspid Valve There is no tricuspid stenosis. Trivial tricuspid valve insufficiency. Pulmonary artery systolic pressure is 20 mmHg. Aortic Valve Aortic sclerosis, no stenosis. Trisinus/trileaflet aortic valve. There is no aortic stenosis. Trivial aortic valve insufficiency. Pulmonic Valve There is no pulmonic valvular stenosis. No pulmonic valve insufficiency. Great Vessels Mildly dilated aortic root. Pericardium/Pleural No pericardial effusion. Medication Performed a rapid injection of agitated mix of 9 cc saline and 1cc air to assess for atrial septal defect. Diluted definity 2ml given slow IV push to enhance endocardial definition. MMode/2D Measurements & Calculations LVIDd: 4.0 cm IVSd: 0.87 cm Ao root diam: 4.1 cm LVIDs: 2.5 cm LVPWd: 0.76 cm RVDd: 3.0 cm FS: 38.6 % LAV(MOD-bp): 26.1 ml LVAd ap4: 20.2 cm2 SV(MOD-sp4): 36.4 ml LAV(MOD-bp) Indexed: 15.7 ml/m2 LVLd ap4: 6.1 cm LAV(MOD-sp2): 23.8 ml EDV(MOD-sp4): 53.4 ml LAV(MOD-sp4): 27.2 ml EDV(sp4-el): 56.9 ml LVAs ap4: 10.0 cm2 LVLs ap4: 4.9 cm ESV(MOD-sp4): 17.0 ml ESV(sp4-el): 17.3 ml EF(MOD-sp4): 68.2 % EF(sp4-el): 69.6 % SV(sp4-el): 39.6 ml LA A4 area: 12.1 cm2 LA dimension(2D): 2.8 cm RA A4 area: 8.2 cm2 Time Measurements MV dec time: 0.21 sec Doppler Measurements & Calculations MV E max neptali: 94.7 cm/sec Lat Peak E' Neptali: 6.5 cm/sec Med Peak E' Neptali: 5.2 cm/sec MV A max neptali: 129.2 cm/sec E/E' lat: 14.5 E/E' med: 18.1 MV E/A: 0.73 MV V2 max: 155.9 cm/sec MV dec slope: 456.5 cm/sec2 Ao V2 max: 172.1 cm/sec MV max P.7 mmHg Ao max P.8 mmHg MV V2 mean: 97.0 cm/sec Ao V2 mean: 124.6 cm/sec MV mean P.2 mmHg Ao mean P.7 mmHg MV V2 VTI: 28.7 cm Ao V2 VTI: 33.2 cm AV (velocity ratio): 0.77 LV V1 max: 119.2 cm/sec PA V2 max: 116.0 cm/sec TR max neptali: 199.7 cm/sec LV V1 max P.7 mmHg TR max P.0 mmHg LV V1 mean P.8 mmHg LV V1 mean: 94.0 cm/sec LV V1 VTI: 25.4 cm ECHO/Echo Complete W/ Contrast Interpretation Summary The estimated ejection fraction is 65 %. Diastolic function is indeterminate. Bubble study is positive for right to left shunt. Trivial mitral valve insufficiency. Trivial aortic valve insufficiency. Mildly dilated aortic root. Ordering Physician: Carmen Peacock Referring Physician: Josué Mendoza Performed By: Denisse Norris RDCS, RVT
--- NOTE | 2023-05-03 17:36 | MRI_ITS ---
We are attempting to reach an attending provider to discuss findings. An addendum with communication details will be sent when the communication is complete. STUDY: MRI BRAIN WITHOUT CONTRAST REASON FOR EXAM: Female, 83 years old. Stroke TECHNIQUE: Standardized multiplanar fat and water weighted pulse sequences were obtained. COMPARISON: CT brain and CT angiography head and neck May 03, 2023. FINDINGS: Normal size of the ventricles and extra-axial spaces for the patient''s age. There is significant, confluent increased T2 and FLAIR signal of the periventricular white matter. Subtle patchy area of restricted diffusion seen in the right periventricular and supraventricular deep white matter consistent with more acute ischemic changes. This measures roughly 20 x 5 mm axial images at the level of the superior edge of the lateral ventricles. Normal T2* images of the brain without demonstrated susceptibility artifact. There is no demonstrated hemosiderin stain. Normal bilateral basal ganglia. Normal thalami. There is no extra-axial fluid accumulation. Normal flow voids within the major intracranial circulation suggesting patency by spin echo criteria. Normal sella turcica, pituitary gland, infundibular stalk, optic chiasm and hypothalamus. Normal tectal plate and pineal gland. Normal midbrain, wilder and medulla. Normal cerebellum. Normal basal cisterns. Normal bilateral temporal bones. Normal bilateral internal auditory canals. Soft tissues of the orbits are within normal limits with prior cataract surgery noted. There is a small amount of layering fluid in the right maxillary sinus paranasal sinuses and mastoid air cells are otherwise clear. Small scalp contusion posterior right parietal vertex region. Normal visualized upper cervical spine. MRI/Brain without Contrast IMPRESSION: 1. Small area of restricted diffusion right periventricular white matter, MCA distribution consistent with acute ischemic changes. 2. Significant confluent areas of increased T2 and FLAIR signal in the periventricular white matter consistent with chronic small vessel ischemic changes. 3. No intracranial hemorrhage. 4. Small amount of fluid right maxillary sinus. 4. Small posterior right parietal vertex region scalp contusion. Electronically Signed: Benedicto Hinds DO at 21:40 EST ,
--- NOTE | 2023-05-03 17:36 | NURSING ---
PCU OBS CARISSA TIA, LEFT SIDED WEAKNESS
[2023-05-03 18:19] LABS: Hemoglobin A1c 5.6 % (3.8-5.6)
--- NOTE | 2023-05-03 18:30 | ED.RN ---
This RN informed Dr Castrejon of a new facial droop and consulted neurology again for it. Dr Chi gave verbal orders for NS 1,000 ml over 4 hours.
[2023-05-03] MEDS: 0.9% Normal Saline (1000mL) 1,000 ML 250 ML IV ×2 (18:44→20:36)
[2023-05-03] MEDS: Acetaminophen 500 MG Tablet 1000 MG PO (20:30)
[2023-05-03] MEDS: Senna/Docusate Sodium 1 Tablet 2 TABLET PO (20:31)
[2023-05-03] MEDS: Atorvastatin Calcium 40 MG Tablet PO (20:31)
[2023-05-03] MEDS: 0.9% Normal Saline (1000mL) 1,000 ML 100 ML IV (20:36)
[2023-05-04] VITALS (7 sets, daily range): BP systolic 112–147; BP diastolic 77–93; PULSE 82–85; RESP 14–16; TEMP 36.2–36.9; O2SAT 91–96; BMI 30.4
[2023-05-04] MEDS: Acetaminophen 500 MG Tablet 1000 MG PO ×3 (05:15→19:43)
[2023-05-04] MEDS: Levothyroxine 25 MCG TABLET PO (05:15)
[2023-05-04 07:08] LABS: Absolute Lymphocyte Count 1.31 X10^3/uL (0.83-4.51); Absolute Neutrophil Count 3.3 X10^3/uL (2.0-7.7); Basophil# 0.08 X10^3/uL; Basophil% 1.3 % (0-1); Eosinophil# 0.28 X10^3/uL; Eosinophils% 4.7 % (0-5); Hematocrit 37.7 % (37-47); Hemoglobin 12.6 g/dL (12.0-15.0); Lymphocyte # 1.31 X10^3/ul (0.83-4.51); Mean Corp Hgb Conc 33.4 g/dL (32-36); Mean Corpuscular Volume 89.8 fL (81-99); Mean Platelet Vol. 10.1 fl (6.2-12.0); Monocyte# 1.01 X10^3/uL; NRBC Flagged by Analyzer 0 % (0-5); Neutrophil # 3.25 X10^3/uL (2.7-7.7); Neutrophil % 54.7 % (47-70); Platelet Count 487 K/mm3 (150-450); RBC Distribution Width CV 13.6 % (11.6-14.6); RBC Distribution Width SD 44.5 fl (35.1-43.9)
[2023-05-04 07:44] LABS: ALB/GLOB Ratio 0.9 RATIO (0.9-2.4); AST(SGOT) 10 U/L (15-37); Alanine Aminotransfer ALT/SGPT 12 U/L (13-56); Alkaline Phosphatase 79 U/L (45-117); Anion Gap 10 (5-15); BUN 16 mg/dL (7-18); BUN/Creat Ratio 20.2 RATIO (10-20); Calcium,Total 9.2 mg/dL (8.5-10.1); Chloride 110 mmol/L (98-107); Cholesterol 145 mg/dL (200); Creatinine, Serum 0.79 mg/dL (0.55-1.02); EST Glomerular Filtration Rate 74 mL/min (>60); Est Glom Filt Rate - Afr Amer 89 mL/min (>60); Estimated Creatinine Clearance 47.59 ml/min; Globulin 3.3 g/dL (2.2-4.2); Glucose 103 mg/dL (74-106); High Density Lipoprotein 53 mg/dL; Magnesium 2.1 mg/dL (1.6-2.6); Phosphorus 3.2 mg/dL (2.5-4.9); Potassium 4.2 mmol/L (3.5-5.1); Protein, Total 6.3 g/dL (6.4-8.2); Sodium Level 142 mmol/L (136-145); Thyroid Stim Hormone (TSH) 2.55 uIU/mL (0.358-3.74); Triglycerides 170 mg/dL; Very Low Density Lipoprotein 34 mg/dL (5-40)
[2023-05-04] MEDS: Enoxaparin 40 MG/0.4 ML Syringe SC (08:24)
[2023-05-04] MEDS: Aspirin 81 MG TAB.CHEW PO (08:24)
--- NOTE | 2023-05-04 09:27 | CASEMGMT ---
SW completed a PHQ 9 with patient as she had a Stroke/TIA. Patient scored a 0 which indicates no depression. Patient denies any need for resources. Verena OLSON
[2023-05-04] MEDS: Prenatal Vits Tablet 1 TABLET PO (11:17)
--- NOTE | 2023-05-04 14:25 | ST.MBS ---
Modified Barium Swallow Patient Information Study Date: 05/04/23 Study Time: 13:30 Direct Billable Minutes: 99 Total Minutes procedure & reportin Diagnosis: Dehydration E86.0, Left-sided weakness R53.1 Referring Physician: Tong Whitfield Reason for Referral: Objectively assess swallow function, assess risk for aspiration, and determine recommendations for least restrictive diet textures and compensatory strategies to improve safety of swallow. Medical History: PMH:?High cholesterol, History of echocardiogram, Hypertension, Loss of hearing, Thyroid disease Patient presented to [facility] ED on 05/03/2023 with complaints of left sided weakness. Patient reported noticing left sided weakness when completing daily tasks when compared to her baseline. After admission, patient developed some left-sided facial weakness and her speech seemed to worsen per nursing staff and daughter report. CT scan of patient's brain was unremarkable for any acute intracranial findings. Patient's chest x-ray is unremarkable for any acute findings. MBSS requested due to choking incident drinking sequential sips of water during bedside swallow exam.? Current Diet Ordered: NPO Dentition: Upper Dentures and Lower Dentures Mental Status: WNL Respiratory Status: Oxygenating on Room Air Penetration-Aspiration Scale Penetration-Aspiration Scale: OBJECTIVE ASSESSMENT OF SWALLOW FUNCTION (QUANTITATIVE ? PER TRIAL): PENETRATION / ASPIRATION SCALE (SALMON): 1 = does not enter airway 2 = enters airway/above vocal folds/ejected 3 = enters airway/above vocal folds/not ejected 4 = enters airway/contacts vocal folds/ejected 5 = enters airway/contacts vocal folds/not ejected 6 = enters airway/below vocal folds/ejected 7 = enters airway/below vocal folds/not ejected despite effort 8 = enters airway/below vocal folds/no effort VIDEOFLOROSCOPIC SCALE SCORE (SALMON): Grade I = aspiration of material that has penetrated into the laryngeal vestibule, intact cough reflex Grade II = aspiration < 10 % of the bolus, intact cough reflex Grade III = aspiration of < 10 % of the bolus, reduced cough reflex or aspiration of > 10 % of the bolus, intact cough reflex Grade IV = aspiration of > 10 % of the bolus, reduced cough reflex Penetration-Aspiration Scale Score Thin Liquid via teaspoon: Result: 1= does not enter airway Thin Liquid via teaspoon Trial 2: Result: 2= enter airway/above vocal folds/ejected Thin Liquid via small single sip: cup: Result: 2= enter airway/above vocal folds/ejected [place] Thick Liquid via small single sip: cup: Result: 8= enters airway/below vocal folds/no effort Comment: Trace SILENT aspiration Pudding via teaspoon: Result: 1= does not enter airway Comment: Esophageal screen Thin Liquid via single sip: straw: Result: 1= does not enter airway Comment: cued cough and re-swallow 1/2 cookie: Result: 1= does not enter airway Thin Liquid via small single sip: cup Trial 2: Result: 2= enter airway/above vocal folds/ejected Oral Phase Labial Seal: Interlabial escape, no progression to anterior lip Tongue Control During Bolus Hold: Escape to lateral buccal cavity/floor of mouth Bolus Preparation/Mastication: Slow prolonged chewing/mashing with complete recollection Bolus Transport/Lingual Motion: Repetitive/disorganized tongue motion (piecemeal) Oral Residue: Residue collection on oral structures Pharyngeal Phase Initiation of Pharyngeal Swallow: Bolus head at posterior laryngeal surgace of epiglottis Soft Palate Elevation: Trace column of contrast/air between soft palate and pharyngeal wall Laryngeal Elevation: Partial superior movement thyroid cart/partial apprx aryt-epig petiole Anterior Hyoid Excursion: Partial anterior movement Epiglottic Movement: No inversion Laryngeal Vestibule Closure at Height of Swallow: Incomplete; narrow column of air/contrast in laryngeal vestibule Pharyngeal Stripping Wave: Present - diminished Pharyngoesophageal Segment Opening: Parital distension and partial duration; parital obstruction of flow Tongue Base Retraction: Wide column of contrast between tongue base & post. pharyngeal wall Pharyngeal Residue: Majority of contrast within or on pharyngeal structures (~50% of pudding contrast remained in the pharynx after the first swallow) Esophageal Phase Esophageal Clearance: Esophageal retention Diagnosis/Impression Diagnosis: Moderate Oropharyngeal Dysphagia R13.12, Esophageal Dysphagia R13.14 Impression: The oral phase is primarily marked by... -Decreased bolus control with bolus spilling into floor of mouth and buccal cavities. -Slowed tongue motion. Prolonged and disorganized A-P transport of pudding and cookie trials. -Trace oral residue lining structures after the swallow. Observed pocketing of cookie on left side. -Prolonged, but adequate mastication of cookie trial. The pharyngeal phase is primarily marked by... -Decreased airway closure during the swallow due to no epiglottic inversion and mildly decreased laryngeal elevation. -Moderately decreased tongue base retraction, mildly decreased UES opening/duration, and moderately decreased pharyngeal stripping wave with resulting moderate-severe pharyngeal residues after the swallow. Multiple swallows and liquid washes somewhat helped clear pharyngeal residues. -Trace SILENT aspiration of nectar thick liquids by cup. Trace laryngeal penetration of thin liquids with full ejection 3X. Use of cough and reswallow after thin liquids by cup was effective in decreasing residues remaining in the laryngeal vestibule after the swallow. The esophageal phase is primarily marked by... -Significant esophageal retention of pudding in mid and lower esophagus. Thin liquid wash was somewhat effective in clearing pudding contrast from the esophagus. Recommendations Diet: Regular Textures (Easy to chew) and Thin Liquids Comment: Check for left-sided pocketing, intermittent cough and re-swallow Compensatory Strategies: Small Bites, Small Sips, Slow Rate, Multiple Swallows, Alternate bites/solids and sips/liquids (1:1 ratio), Sitting upright and Remain sitting upright for 30 minutes after PO intake Supervision: 1:1 Close Supervision Recommend Repeat Modified Barium Swallow: TBD Need for Skilled Speech Therapy Services: Yes Comment: -Train the patient in use of strategies to decrease risk for aspiration and reflux aspiration. -Ongoing assessment of diet tolerance of recommended textures. -Train the patient oropharyngeal exercise program to pharyngeal motility, tongue base retraction, airway closure (Meg, Effortful, Alissa, CTAR). Recommended Referrals: GI Consult Education Completed: 1. Described result of evaluation. and 2. Pt understands evaluation & agrees with goals and treatment plan. Status Active ST Patient: Active Contact Information [facility] Speech Therapy:: Eladia Gomez M.A. [facility] [employer] [employer]? Speech-Language Pathologist?? [facility] [address]?? [place] [address]?? [email or web address]?? [phone]??
--- NOTE | 2023-05-04 14:41 | VDLE_ITS ---
Reason For Study: PFO / Lt Sided Weakness RIGHT LEFT GSV is normal. GSV is normal. CFV is compressible, spontaneous, phasic, CFV is compressible, spontaneous, phasic, competent and demonstrates normal competent, and demonstrates normal augmentation. augmentation. FV is compressible, spontaneous, phasic, FV is compressible, spontaneous, phasic, competent and demonstrates normal competent and demonstrates normal augmentation. augmentation. POP V is compressible, spontaneous, phasic, POP V is compressible, spontaneous, and competent and demonstrates normal phasic. augmentation. T/P Trunk is compressible. T/P Trunk is compressible. PTV is compressible. PTV is compressible. Acute deep vein thrombosis is noted in the RT PerV is compressible. Per V. It is dilated and NONCOMPRESSIBLE. Procedure This is a venous duplex using B-mode, color flow and spectral Doppler. Exam performed portable in patient room. The exam was diagnostic. A preliminary report was called and/or faxed to [facility]. VL/Venous Duplex US - Savage Extrem Interpretation Summary Acute deep vein thrombosis is noted in the left peroneal vein. Deep veins of the right lower extremity are patent and compressible segmentally . There is no evidence of right lower extremity deep vein thrombosis. The bilateral great sap henous veins appear patent and compressible segmentally. Ordering Physician: Tong Whitfield Referring Physician: Josué Mendoza Performed By: Pierre Carlton RVT
--- NOTE | 2023-05-04 15:07 | CASEMGMT ---
RN CM in to discuss needs at discharge, daughter at bedside. ST recommending ST at discharge. Script received for outpatient therapy and provided to patient. Patient and daughter denied further questions or concerns at discharge.
--- NOTE | 2023-05-04 15:59 | CASEMGMT ---
Met with?patient and her daughter to complete CEDENO form. CEDENO form explained to?both who voiced understanding and signed form. Patient requested daughter sign form d/t arm being in a sling. Original form placed in pt?s chart and copy provided to?patient. Navya Kan, Discharge Planning Asst
--- NOTE | 2023-05-04 18:55 | PCM.PN.HOSP ---
Reason for Visit Reason for Visit: Diagnoses Thrombocytosis, unspecified (05/03/23) Hypercalcemia (05/03/23) Dehydration (05/03/23) Dysarthria and anarthria (05/03/23) Weakness (05/03/23) Other specified abnormal findings of blood chemistry (05/03/23) Subjective Subjective Patient was seen and examined today, MRI showed a stroke located in the right periventricular white matter MCA distribution, I talked to speech therapy today, they stated that the patient had silent aspiration on her modified barium swallow today and pooling of barium in her esophagus, I feel speech therapy will need to work with the patient again tomorrow to ensure that she can safely have oral intake, for now the patient will have small bites followed by thin liquids. Daughter was in her room today and I talked with her also. Speech therapy recommended that gastroenterology see the patient and they felt it was appropriate, I contacted gastroenterology and they will review the case. Results of the patient's echocardiogram posted today, patient has a PFO, neurology had recommended that the patient get a venous duplex performed, it showed a small DVT in the left peroneal vein, I then talked with neurology and they were in favor of anticoagulation for the patient 3 days after her stroke symptomology started. I also talked with vascular surgery and due to the fact the patient had a PFO, they were in favor of anticoagulating the patient when she was able to safely take anticoagulation. Objective Data Objective Data Vital Signs: Vital Signs Temp Pulse Resp BP Pulse Ox O2 Del Method O2 Flow Rate 98.5 F 85 16 127/77 H 96 Room Air 2 05/04/23 12:30 05/04/23 12:30 05/04/23 12:30 05/04/23 12:30 05/04/23 14:30 05/04/23 14:30 05/03/23 18:30 Oxygen Flow Rate (L/min) 2 Oxygen Delivery Method Room Air Weight: 70.76 kg Body Mass Index (BMI) 30.4 Intake & Output: Intake and Output for Last 24 Hours 05/02/23 05/03/23 05/04/23 23:59 23:59 23:59 Intake Total 100 / 340 2029 Balance 100 / 340 2029 Lab / Micro Data 05/04/23 06:20 05/04/23 06:20 Labs: Laboratory Results - last 24 hr 05/04/23 06:20: WBC 6.0, RBC 4.20, Hgb 12.6, Hct 37.7, MCV 89.8, MCH 30.0, MCHC 33.4, RDW Std Deviation 44.5 H, RDW Coeff of [place] 13.6, Plt Count 487 H, MPV 10.1, Immature Gran % (Auto) 0.300, Neut % (Auto) 54.7, Lymph % (Auto) 22.0, [place] % (Auto) 17.0 H, Eos % (Auto) 4.7, Baso % (Auto) 1.3 H, Absolute Neuts (auto) 3.3, Absolute Lymphs (auto) 1.31, Nucleated RBC % 0, Sodium 142, Potassium 4.2, Chloride 110 H, Carbon Dioxide 22.0, Anion Gap 10, BUN 16, Creatinine 0.79, Estim Creat Clear Calc 47.59, Est GFR (MDRD) Af Amer 89, Est GFR (MDRD) Non-Af 74, BUN/Creatinine Ratio 20.2 H, Glucose 103, Calcium 9.2, Phosphorus 3.2, Magnesium 2.1, Total Bilirubin 0.40, AST 10 L, ALT 12 L, Alkaline Phosphatase 79, Total Protein 6.3 L, Albumin 3.0 L, Globulin 3.3, Albumin/Globulin Ratio 0.9, Triglycerides 170, Cholesterol 145, LDL Cholesterol 58, VLDL Cholesterol 34, HDL Cholesterol 53, TSH 2.55 Radiography Diagnostic Testing: Radiology Impression Brain MRI 05/03/23 17:36 IMPRESSION: 1. Small area of restricted diffusion right periventricular white matter, MCA distribution consistent with acute ischemic changes. 2. Significant confluent areas of increased T2 and FLAIR signal in the periventricular white matter consistent with chronic small vessel ischemic changes. 3. No intracranial hemorrhage. 4. Small amount of fluid right maxillary sinus. 4. Small posterior right parietal vertex region scalp contusion. Electronically Signed: Benedicto Hinds DO at 21:40 EST , ADDENDUM: 05/03/23 [id number] IMPRESSION: 1. Small area of restricted diffusion right periventricular white matter, MCA distribution consistent with acute ischemic changes. 2. Significant confluent areas of increased T2 and FLAIR signal in the periventricular white matter consistent with chronic small vessel ischemic changes. 3. No intracranial hemorrhage. 4. Small amount of fluid right maxillary sinus. 4. Small posterior right parietal vertex region scalp contusion. N.B. : The above Results were Read Back by Beendicto Hinds DO to Audrey Hdez RN, and understanding confirmed on 05/03/2023 22:01:21 (ET). Electronically Signed: Benedicto Hinds DO at 21:40 EST , Echocardiogram 05/03/23 17:36 Interpretation Summary The estimated ejection fraction is 65 %. Diastolic function is indeterminate. Bubble study is positive for right to left shunt. Trivial mitral valve insufficiency. Trivial aortic valve insufficiency. Mildly dilated aortic root. Ordering Physician: Carmen Peacock Referring Physician: Josué Mendoza Performed By: Denisse Norris, EDMOND, RVT Venous Doppler Study 05/04/23 14:41 Interpretation Summary Acute deep vein thrombosis is noted in the left peroneal vein. Deep veins of the right lower extremity are patent and compressible segmentally. There is no evidence of right lower extremity deep vein thrombosis. The bilateral great saphenous veins appear patent and compressible segmentally. Ordering Physician: Tong Whitfield Referring Physician: Josué Mendoza Performed By: Pierre Carlton, RVT Physical Exam Const alert, oriented x3, no apparent distress and average body habitus General Appearance: cooperative, well kempt and well developed Orientation / Consciousness: awake, oriented to person, oriented to place and oriented to time HEENT normocephalic, head/scalp atraumatic and moist oral mucous membranes Eyes PERRL, EOMs intact bilaterally and conjunctivae normal Neck supple, no JVD, thyroid normal and no carotid bruits General: trachea midline Resp normal respiratory effort, no retractions, no use of accessory muscles and clear to auscultation bilaterally Auscultation: Negative for rales, rhonchi or wheezes Cardio regular rate, regular rhythm, S1 normal heart sound, S2 normal heart sound, no murmurs, no rub and no gallops GI normal to inspection, nondistended, normoactive bowel sounds, soft to palpation, non-tender and non-distended Extremity Extremity Narrative: Patient's right arm is in a shoulder immobilizer due to recent surgery Skin no rashes or lesions noted General Skin Exam: no breakdown Neuro oriented x3, CN's II-XII intact bilaterally, moves all extremities, no focal motor deficits and no sensory deficits noted Neuro Narrative: Patient has some dysarthria Sensorium / Orientation: awake and alert Psych affect normal Assessment & Plan Assessment/Plan (1) Dysarthria: PLAN: Plan 1. Acute right periventricular white matter MCA distribution ischemic stroke-patient will be maintained on aspirin 81 mg daily, she will also be maintained on a statin, she is being seen by PT, OT, and speech therapy #2 silent aspiration secondary to #1-patient will need to see speech therapy tomorrow to ensure that she can safely eat #3 hypothyroidism-patient is on Synthroid #4 DVT of the left peroneal vein-patient will be placed on full anticoagulation starting this Tuesday-this Tuesday would marked 3 days after her stroke symptomology Total clinical time spent by myself addressing the patient's medical issues, reviewing all of her data, and collaborating with patient's care team: 35 minutes Charges/Coding Visit Charges Inpatient E&M: 83718 Subs Hosp L2
[2023-05-04] MEDS: Senna/Docusate Sodium 1 Tablet 2 TABLET PO (19:43)
[2023-05-04] MEDS: Atorvastatin Calcium 40 MG Tablet PO (19:43)
--- NOTE | 2023-05-04 19:43 | NEURO.CONS ---
Assessment and Plan: Neuro Assessment/Plan HARRISON GRIDER is a 83 F with a past medical history of HTN and HLD being evaluated by Teleneurology for acute stroke, pt presented with left hemiparesis that improved, work up included MRI that showed acute left periventricular ischemic stroke, TTE with right to left shunt and lowe ext duplex with acute peroneal DVT. Etiology of the stroke is probably due small vessels disease and not related to the PFO and DVT (pt is 83 yo and she is not a candidate for pfo closure regardless), Plan: cont anti plt therapy with ASA 81 mg daily, cont statin, stroke education, PT/OT, speech eval and rehab pt had a small stroke with small risk of hemorrhagic transformation, if anticoagulation needed I would wait 3-5 days post stroke obtain and CT head prior to starting anticoagulation. HPI Consult Data Date of Consult: 05/04/23 HPI Narrative Reason for Consultation: left arm and leg weakness HPI Narrative: HARRISON GRIDER, is a 83 F who presents [facility] on 05/03/2023 with the chief complaint of left sided weakness. she woke up at 3 pm and noticed left arm and leg weakness. she tried to walk to see her daughte but she unstable and had a fall. on arrival to the ED a stroke alert was called NIHSS, her exam was improving and she was not given lytics. CT head with no acute changes and CTA with no LVO. she was admitted for stroke work up. MRI showed small Small area of restricted diffusion right periventricular white matter, MCA distribution consistent with acute ischemic changes. TTE showed right to left shunt and DVT study showed Acute deep vein thrombosis is noted in the left peroneal vein. [facility] Medical History High cholesterol History of echocardiogram Hypertension Loss of hearing Thyroid disease Home Medications acetaminophen 500 mg tablet (Acetaminophen Extra Strength) 500 mg PO Q8 PRN pain 03/09/23 [History Last Taken Unknown] aspirin 325 mg capsule 325 mg PO DAILY 03/09/23 [History Last Taken 04/01/23] ergocalciferol (vitamin D2) 1,250 mcg (50,000 unit) capsule (Vitamin D2) 50,000 unit PO QWEEK 03/09/23 [History Last Taken 04/01/23] fosinopril 20 mg tablet 20 mg PO DAILY 03/09/23 [History Last Taken 04/06/23] levothyroxine 25 mcg tablet 25 mcg PO DAILY 03/09/23 [History Last Taken 04/06/23] lovastatin 40 mg tablet 40 mg PO DAILY 03/09/23 [History Last Taken 04/07/23] omega 5-hpu-euj-fish oil 1,200 mg (144 mg-216 mg) capsule (Fish Oil) 1 cap PO DAILY 03/09/23 [History Last Taken 04/01/23] vit no.95-ferrous fumarate 28 mg-folic acid 800 mcg tablet () 1 tab PO DAILY 03/09/23 [History Last Taken 04/01/23] oxycodone 5 mg tablet 5 - 10 mg (1 - 2 x 5 mg) PO .q4-6hrs prn PRN Pain Score 4-10 7 days #30 tabs 04/08/23 [Rx Last Taken Unknown] sennosides 8.6 mg-docusate sodium 50 mg tablet (Stool Softener-Stimulant Laxative) 2 tab PO BID #14 tabs 04/08/23 [Rx Last Taken Unknown] Allergy/AdvReac Type Severity Reaction Status Date / Time amoxicillin [From Augmentin] AdvReac Intermediate Rash Verified 05/03/23 15:49 clavulanic acid AdvReac Intermediate Rash Verified 05/03/23 15:49 [From Augmentin] Family History (Updated 05/03/23 @ 18:[address] Carmen Peacock DO) Other Hyperlipidemia Hypertension Surgical History History of appendectomy History of carpal tunnel release History of dental surgery History of hysterectomy History of tonsillectomy History of total replacement of right shoulder joint Social History (Updated 05/03/23 @ 18:[address] Carmen Peacock DO) household members: family housing: house Smoking Status: Former smoker alcohol intake: never substance use type: does not use Vital Signs Vital Signs Vital Signs: 05/03/23 21:03 05/03/23 21:03 05/03/23 21:40 Temperature 97.3 F L Temperature Source Temporal Pulse Rate 82 Respiratory Rate 18 Respiratory Effort Normal Respiratory Depth Normal Respiratory Pattern Normal Blood Pressure 144/82 H Blood Pressure Mean 102 Blood Pressure Source Monitor Blood Pressure Position Semi-Fowlers Blood Pressure Location Left Arm Pulse Ox 94 94 Oxygen Delivery Method Room Air Room Air Room Air 05/04/23 02:00 05/04/23 05:34 05/04/23 07:37 Temperature 97.3 F L 97.5 F L Temperature Source Temporal Temporal Pulse Rate 83 82 Respiratory Rate 16 16 Respiratory Effort Normal Respiratory Depth Normal Respiratory Pattern Normal Blood Pressure 141/80 H 138/80 H Blood Pressure Mean 100 99 Blood Pressure Source Monitor Monitor Blood Pressure Position Supine Semi-Fowlers Blood Pressure Location Left Arm Left Arm Pulse Ox 94 94 Oxygen Delivery Method Room Air Room Air Room Air 05/04/23 08:20 05/04/23 12:30 05/04/23 14:30 Temperature 98.4 F 98.5 F Temperature Source Oral Oral Pulse Rate 83 85 Respiratory Rate 14 16 Respiratory Effort Respiratory Depth Respiratory Pattern Blood Pressure 112/82 H 127/77 H Blood Pressure Mean 92 93 Blood Pressure Source Monitor Monitor Blood Pressure Position Semi-Fowlers Semi-Fowlers Blood Pressure Location Left Arm Left Arm Pulse Ox 95 95 96 Oxygen Delivery Method Room Air Room Air Room Air Weight Weight: 70.76 kg Body Mass Index (BMI) 30.4 EEG Results Procedure Details EEG Procedure Details: HARRISON GRIDER is a 83 year old F with a past medical history of , who presents for evaluation of Electroencephalogram on DATE at TIME NIHSS NIHSS Nursing Documentation NIHSS Nursing Documentation: NIH Stroke Scale Start: 05/03/23 17:48 Freq: Status: Discharge Protocol: Activity Type Activity Date Activity User E-sign Co-sign Detail Recorded Client Recorded Date Recorded By Document 05/03/23 17:49 Desktop 05/03/23 17:49 05/03/23 17:49 NIH Stroke Scale [NIHSS] A score of 0 is normal or asymptomatic . Total possible score is 42. Inpatient: RN or Physician to activate a stroke alert for onset of new stroke symptoms or with NIHSS increase >/= 3 points. Following change in neurological status, NIHSS will be performed per physician order or more frequently PRN. -1a. Level of Consciousness Alert; keenly responsive -1b. LOC Questions Answers BOTH questions correctly. -1c. LOC Commands Performs both tasks correctly . -2. Best Gaze Normal -3. Visual No visual loss -4. Facial Palsy Minor paralysis (flattened nasolabial fold , asymmetry on smiling) -5a. Left Arm No drift; arm holds 90 (or 45 ) degrees for full 10 seconds -5b. Right Arm No drift; arm holds 90 (or 45 ) degrees for full 10 seconds -6a. Left Leg No drift; leg holds 30-degree position for full 5 seconds -6b. Right Leg No drift; leg holds 30-degree position for full 5 seconds -7. Limb Ataxia Absent -8. Sensory Normal; no sensory loss -9. Best Language No aphasia; normal -10. Dysarthria Mild-to- moderate dysarthria; -11. Extinction and Inattention No abnormality -Total 2 Query Text:A score of 0 is normal or asymptomatic. Total possible score is 42 . ED: Notify Physician for NIHSS increase by > / = 3 points. Inpatient: RN or Physician to activate a stroke alert for NIHSS increase of > / = 3 points. NIHSS: Ischemic Stroke/TIA Start: 05/03/23 19:19 Text: For PCU Patients: NIH and Neuro Check every 4 Status: Active hours and PRN Freq: [id number] Protocol: Activity Type Activity Date Activity User E-sign Co-sign Detail Recorded Client Recorded Date Recorded By Document 05/04/23 16:02 [employer] Desktop 05/04/23 16:02 05/04/23 16:02 -1a. Level of Consciousness Alert; keenly responsive -1b. LOC Questions Answers BOTH questions correctly. -1c. LOC Commands Performs both tasks correctly . -2. Best Gaze Normal -3. Visual No visual loss -4. Facial Palsy Minor paralysis (flattened nasolabial fold , asymmetry on smiling) -5a. Left Arm No drift; arm holds 90 (or 45 ) degrees for full 10 seconds -5b. Right Arm No drift; arm holds 90 (or 45 ) degrees for full 10 seconds -6a. Left Leg No drift; leg holds 30-degree position for full 5 seconds -6b. Right Leg No drift; leg holds 30-degree position for full 5 seconds -7. Limb Ataxia Absent -8. Sensory Normal; no sensory loss -9. Best Language No aphasia; normal -10. Dysarthria Normal -11. Extinction and Inattention No abnormality -Total 1 Query Text:A score of 0 is normal or asymptomatic. Total possible score is 42 . ED: Notify Physician for NIHSS increase by > / = 3 points. Inpatient: RN or Physician to activate a stroke alert for NIHSS increase of > / = 3 points. Coma Scale [Assess] -Eye Opening Spontaneous -Motor Obeys Commands -Verbal Oriented [Total] -Coma Scale Total 15 Physical Exam Const Orientation / Consciousness: awake, oriented to person and oriented to place HEENT normocephalic Eyes PERRL Resp normal respiratory effort Neuro oriented x3 Neuro Narrative: .left facial drop, left face numbness mild dysarthria Cranial Nerves: CN VII (facial) Laterality: left CN VII - Left: Positive for facial droop Speech: speech normal Motor Exam: no pronator drift and no tremor Lab / Micro Data 05/04/23 06:20 05/04/23 06:20 Labs: Laboratory Results - last 24 hr 05/04/23 06:20: WBC 6.0, RBC 4.20, Hgb 12.6, Hct 37.7, MCV 89.8, MCH 30.0, MCHC 33.4, RDW Std Deviation 44.5 H, RDW Coeff of [place] 13.6, Plt Count 487 H, MPV 10.1, Immature Gran % (Auto) 0.300, Neut % (Auto) 54.7, Lymph % (Auto) 22.0, [place] % (Auto) 17.0 H, Eos % (Auto) 4.7, Baso % (Auto) 1.3 H, Absolute Neuts (auto) 3.3, Absolute Lymphs (auto) 1.31, Nucleated RBC % 0, Sodium 142, Potassium 4.2, Chloride 110 H, Carbon Dioxide 22.0, Anion Gap 10, BUN 16, Creatinine 0.79, Estim Creat Clear Calc 47.59, Est GFR (MDRD) Af Amer 89, Est GFR (MDRD) Non-Af 74, BUN/Creatinine Ratio 20.2 H, Glucose 103, Calcium 9.2, Phosphorus 3.2, Magnesium 2.1, Total Bilirubin 0.40, AST 10 L, ALT 12 L, Alkaline Phosphatase 79, Total Protein 6.3 L, Albumin 3.0 L, Globulin 3.3, Albumin/Globulin Ratio 0.9, Triglycerides 170, Cholesterol 145, LDL Cholesterol 58, VLDL Cholesterol 34, HDL Cholesterol 53, TSH 2.55 Imaging Radiology Impression Brain MRI 05/03/23 17:36 IMPRESSION: 1. Small area of restricted diffusion right periventricular white matter, MCA distribution consistent with acute ischemic changes. 2. Significant confluent areas of increased T2 and FLAIR signal in the periventricular white matter consistent with chronic small vessel ischemic changes. 3. No intracranial hemorrhage. 4. Small amount of fluid right maxillary sinus. 4. Small posterior right parietal vertex region scalp contusion. Electronically Signed: Benedicto Hinds DO at 21:40 EST , ADDENDUM: 05/03/238 IMPRESSION: 1. Small area of restricted diffusion right periventricular white matter, MCA distribution consistent with acute ischemic changes. 2. Significant confluent areas of increased T2 and FLAIR signal in the periventricular white matter consistent with chronic small vessel ischemic changes. 3. No intracranial hemorrhage. 4. Small amount of fluid right maxillary sinus. 4. Small posterior right parietal vertex region scalp contusion. N.B. : The above Results were Read Back by Benedicto Hinds DO to Audrey Hdez RN, and understanding confirmed on 05/03/2023 22:01:21 (ET). Electronically Signed: Benedicto Hinds DO at 21:40 EST , Echocardiogram 05/03/23 17:36 Interpretation Summary The estimated ejection fraction is 65 %. Diastolic function is indeterminate. Bubble study is positive for right to left shunt. Trivial mitral valve insufficiency. Trivial aortic valve insufficiency. Mildly dilated aortic root. Ordering Physician: Carmen Peacock Referring Physician: Josué Mendoza Performed By: Denisse Norris, EDMOND, RVT Venous Doppler Study 05/04/23 14:41 Interpretation Summary Acute deep vein thrombosis is noted in the left peroneal vein. Deep veins of the right lower extremity are patent and compressible segmentally. There is no evidence of right lower extremity deep vein thrombosis. The bilateral great saphenous veins appear patent and compressible segmentally. Ordering Physician: Tong Whitfield Referring Physician: Josué Mendoza Performed By: Pierre Carlton RVT Active Medications Active Medications Active Medications: Current Medications Generic Name Dose Route Start Last Admin Trade Name Freq PRN Reason Stop Dose Admin Acetaminophen 1,000 mg 05/03/23 22:00 05/04/23 13:04 Acetaminophen 500 Mg Tablet PO 1,000 mg Q8 SAV Administration Albuterol Sulfate 2.5 mg 05/03/23 19:19 Albuterol 2.5 Mg/3 Ml Vial.Neb. INHALATION Q2H PRN PRN SOB/Wheezing Aspirin 81 mg 05/04/23 08:00 05/04/23 08:24 Aspirin 81 Mg Tab.Chew PO 81 mg BREAKFAST SAV Administration Atorvastatin Calcium 40 mg 05/03/23 22:00 05/03/23 20:31 Atorvastatin Calcium 40 Mg Tablet PO 40 mg QHS SAV Administration Docusate Sodium 100 mg 05/03/23 19:19 Docusate Sodium 100 Mg Capsule PO BID PRN PRN Constipation Enoxaparin Sodium 40 mg 05/04/23 10:00 05/04/23 08:24 Enoxaparin 40 Mg/0.4 Ml Syringe SC 40 mg DAILY SAV Administration Hydralazine HCl 5 mg 05/03/23 19:19 Hydralazine 20 Mg/Ml Vial IV Q30M PRN to maintain BP goals Labetalol HCl 10 - 20 mg 05/03/23 19:19 Labetalol (Prefilled) 20 Mg/4 Ml IV Q10M PRN PRN to Maintain BP Goals Levothyroxine Sodium 25 mcg 05/04/23 06:00 05/04/23 05:15 Levothyroxine 25 Mcg Tablet PO 25 mcg DAILY@0600 SAV Administration Melatonin 3 mg 05/03/23 19:19 Melatonin 3 Mg Tablet PO QHS PRN PRN INSOMNIA Ondansetron HCl 4 mg 05/03/23 19:19 Ondansetron 4 Mg/2 Ml Vial IV Q8H PRN PRN NAUSEA/VOMITING Oxycodone HCl 5 mg 05/03/23 19:19 Oxycodone 5 Mg Tablet PO Q4H PRN PRN Pain Score 4-10 Multivit/Folic Acid/Iron 1 tablet 05/04/23 12:00 05/04/23 11:17 Vits Tablet PO 1 tablet LUNCH SAV Administration Senna/Docusate Sodium 2 tablet 05/03/23 22:00 05/04/23 08:25 Senna/Docusate Sodium 1 Tablet PO Not Given BID SAV Sodium Chloride 10 - 40 ml 05/03/23 21:00 0.9% Saline Lock 10 Ml Syringe IV UD PRN SALINE FLUSH
--- NOTE | 2023-05-04 21:15 | CPS ---
Patient's sat's dropped to 86% placed on 2L now 91% and on continuous pulse ox.
--- NOTE | 2023-05-04 23:00 | CON.PCM.GI_ITS ---
HPI Consult Data Date of Consult: 05/04/23 HPI Narrative Reason for Consultation: dysphagia HPI Narrative: HARRISON GRIDER, is a 83 F who presented to the ED at [facility] on 05/03/2023 with the chief complaint of left sided weakness. Patient states she went to take a nap at 1 PM and woke up at 3 PM and got up to use the bathroom and noted she had significant weakness on the left side. Patient recently underwent a reverse right total shoulder arthroplasty and is right-hand dominant however has been using her left arm persistently due to her arthroplasty. She indicated she tried to pull up her pants and had significant issues doing so. She then tried to get the lid off of a water jug with her left hand and was not able to do so. She indicated typically this had not been a problem. She started to walk out to get her daughter because of these issues and had a fall. She states her legs felt weak and like they would not hold her up. She bumped her head but did not lose consciousness and indicates the fall was not syncopal it was due to her weakness. Upon presentation the patient was feeling close to normal. The daughter indicated that her weakness seemed to be resolved however her voice seems to be off some. She was taking aspirin as DVT prophylaxis and was on 81 mg daily recently decreasing the dose from 325 mg daily. At the time of my evaluation, just prior to my arrival she developed some left-sided facial weakness and neuro was reevaluating her. The weakness seems to be minimal. She had no weakness in her arm or leg at that time and her daughter indicated her speech seemed to be a little bit worse than it had been earlier. Nursing agreed. Vital signs on presentation demonstrated temperature of 97.8, heart rate 95, blood pressure was 135/92, respiratory was 16 oxygen saturations were 96% on room air. CBC was overall unremarkable other than a mild thrombocytosis with a platelet count of 489,000. She had a mild monocytosis with a 14.1% shift. Coags were normal. Chemistry panel revealed mildly elevated chloride, BUN, and serum creatinine from baseline. Calcium was slightly elevated at 10.3 as well. Her troponin was normal at 5. EKG showed normal sinus rhythm with normal intervals and no ST-T wave changes concerning for acute ischemia. CT of the brain was unremarkable for any acute intracranial findings and showed a focal right parietal scalp hematoma. CTA of the head and neck were un remarkable for any stenosis or LVO. Chest x-ray is unremarkable for any acute findings. Further work up included MRI that showed acute left periventricular ischemic stroke, TTE with right to left shunt and lowe ext duplex with acute peroneal DVT. I was consulted because she is having esophageal dysphagia. [facility] Medical History High cholesterol History of echocardiogram Hypertension Loss of hearing Thyroid disease Home Medications acetaminophen 500 mg tablet (Acetaminophen Extra Strength) 500 mg PO Q8 PRN pain 03/09/23 [History Last Taken Unknown] aspirin 325 mg capsule 325 mg PO DAILY 03/09/23 [History Last Taken 04/01/23] ergocalciferol (vitamin D2) 1,250 mcg (50,000 unit) capsule (Vitamin D2) 50,000 unit PO QWEEK 03/09/23 [History Last Taken 04/01/23] fosinopril 20 mg tablet 20 mg PO DAILY 03/09/23 [History Last Taken 04/06/23] levothyroxine 25 mcg tablet 25 mcg PO DAILY 03/09/23 [History Last Taken 04/06/23] lovastatin 40 mg tablet 40 mg PO DAILY 03/09/23 [History Last Taken 04/07/23] omega 4-ecf-lln-fish oil 1,200 mg (144 mg-216 mg) capsule (Fish Oil) 1 cap PO DAILY 03/09/23 [History Last Taken 04/01/23] vit no.95-ferrous fumarate 28 mg-folic acid 800 mcg tablet () 1 tab PO DAILY 03/09/23 [History Last Taken 04/01/23] oxycodone 5 mg tablet 5 - 10 mg (1 - 2 x 5 mg) PO .q4-6hrs prn PRN Pain Score 4- 10 7 days #30 tabs 04/08/23 [Rx Last Taken Unknown] sennosides 8.6 mg-docusate sodium 50 mg tablet (Stool Softener-Stimulant Laxative) 2 tab PO BID #14 tabs 04/08/23 [Rx Last Taken Unknown] Allergy/AdvReac Type Severity Reaction Status Date / Time amoxicillin [From Augmentin] AdvReac Intermediate Rash Verified 05/03/23 15:49 clavulanic acid AdvReac Intermediate Rash Verified 05/03/23 15:49 [From Augmentin] Family History (Updated 05/03/23 @ 18:[address] Carmen Peacock DO) Other Hyperlipidemia Hypertension Surgical History History of appendectomy History of carpal tunnel release History of dental surgery History of hysterectomy History of tonsillectomy History of total replacement of right shoulder joint Social History (Updated 05/03/23 @ 18:[address] Carmen Peacock DO) household members: family housing: house Smoking Status: Never smoker alcohol intake: never substance use type: does not use ROS Constitutional Constitutional: Reports weakness; Denies anorexia, change in weight, chills, fatigue, fever(s), malaise, night sweats or other Eyes Eyes: Denies blurry vision, change in eye color, change in vision, discharge from eye(s), double vision, erythema, eye pain, loss of vision or other ENT HEENT: Denies abnormal hearing, dysphagia, ear pain, epistaxis, headache(s), hearing loss, nasal congestion, nasal discharge, post nasal drip, sinus pressure, sore throat or other Cardiovascular Cardiovascular: Denies chest pain, claudication, dyspnea on exertion, edema, lightheadedness, orthopnea, palpitations, paroxysmal nocturnal dyspnea, rapid heart rate, syncope or other Respiratory/Chest Respiratory/Chest: Reports cough; Denies dyspnea, excessive phlegm production, hemoptysis, productive cough, shortness of breath at rest, shortness of breath with exertion, wheezing or other Gastrointestinal Gastrointestinal: Denies abdominal pain, coffee ground emesis, constipation, diarrhea, dyspepsia, hematemesis, hematochezia, loose stools, melena, nausea, vomiting or other Genitourinary Genitourinary: Denies burning urination, difficulty urinating, dysuria, hematuria, nocturia, urinary frequency, urinary hesitancy, urinary incontinence, urinary urgency or other Musculoskeletal Musculoskeletal: Reports joint pain and joint stiffness; Denies arthralgias, back pain, joint swelling, myalgias, neck pain or other Neurologic Neurologic: Reports abnormal speech and focal weakness; Denies abnormal gait, c onfusion, disequilibrium, dizziness, headache(s), numbness, paresthesias, seizure-like activity, seizures, syncope, tingling, tremor(s) or other Psychiatric Psychiatric: Denies anxiety, depression, homicidal ideation, suicidal ideation or other Endocrine Endocrinology: Denies change in body appearance, cold intolerance, excessive sweating, heat intolerance, polydipsia, polyuria or other Hematologic/Lymphatic Hematologic/Lymphatic: Denies anemia, easy bleeding, easy bruising, lymphadenopathy or other Allergic/Immunologic Allergic/Immunologic: Denies rhinitis, hives, eczemia, asthma or other Physical Exam Const Orientation / Consciousness: awake, oriented to person and oriented to place HEENT normocephalic Eyes PERRL Resp normal respiratory effort Neuro oriented x3 Neuro Narrative: .left facial drop, left face numbness mild dysarthria Cranial Nerves: CN VII (facial) Laterality: left CN VII - Left: Positive for facial droop Speech: speech normal Motor Exam: no pronator drift and no tremor Lab / Micro Data 05/05/23 06:20 05/05/23 06:20 Labs: Laboratory Results - last 24 hr 05/05/23 06:20: WBC 7.3, RBC 4.25, Hgb 12.5, Hct 38.3, MCV 90.1, MCH 29.4, MCHC 32.6, RDW Std Deviation 44.3 H, RDW Coeff of [place] 13.6, Plt Count 417, MPV 9.7, Immature Gran % (Auto) 0.300, Neut % (Auto) 55.5, Lymph % (Auto) 23.8, [place] % (Auto) 14.4 H, Eos % (Auto) 4.4, Baso % (Auto) 1.6 H, Absolute Neuts (auto) 4.1, Absolute Lymphs (auto) 1.74, Nucleated RBC % 0, Sodium 143, Potassium 4.2, Chloride 112 H, Carbon Dioxide 23.0, Anion Gap 8, BUN 14, Creatinine 0.70, Estim Creat Clear Calc 47.33, Est GFR (MDRD) Af Amer 103, Est GFR (MDRD) Non-Af 85, BUN/Creatinine Ratio 19.9, Glucose 105, Calcium 9.3 Imaging Radiology Impression Venous Doppler Study 05/04/23 14:41 Interpretation Summary Acute deep vein thrombosis is noted in the left peroneal vein. Deep veins of the right lower extremity are patent and compressible segmentally. There is no evidence of right lower extremity deep vein thrombosis. The bilateral great saphenous veins appear patent and compressible segmentally. Ordering Physician: Tong Whitfield Referring Physician: Josué Mendoza Performed By: Pierre Carlton RVT Assessment & Plan Assessment/Plan (1) Left-sided weakness: (2) Dysarthria: (3) Thrombocytosis: (4) Dehydration: (5) Elevated serum creatinine: (6) Hypercalcemia: PLAN: Plan 83-year-old with acute left-sided weakness/dysarthria determined to be secondary to acute CVA currently with esophageal dysphagia Differential diagnosis does include cricopharyngeal achalasia, oropharyngeal dysphagia secondary to acute CVA, esophageal stricture, erosive esophagitis Recommend upper endoscopy to evaluate her upper GI tract. She was explained alternatives, risk, benefits include not withstanding bleeding, infection, sepsis, perforation, need for emergent surgery and . She will have an ASA of 3. Charges/Coding Visit Charges Inpatient E&M: 25971 Init Hosp L3
[2023-05-05] VITALS (9 sets, daily range): BP systolic 111–141; BP diastolic 78–89; PULSE 77–89; RESP 14–18; TEMP 36.2–37; O2SAT 93–95; BMI 30.1
[2023-05-05 06:39] LABS: Absolute Lymphocyte Count 1.74 X10^3/uL (0.83-4.51); Absolute Neutrophil Count 4.1 X10^3/uL (2.0-7.7); Basophil# 0.12 X10^3/uL; Basophil% 1.6 % (0-1); Eosinophil# 0.32 X10^3/uL; Eosinophils% 4.4 % (0-5); Hematocrit 38.3 % (37-47); Hemoglobin 12.5 g/dL (12.0-15.0); Lymphocyte # 1.74 X10^3/ul (0.83-4.51); Lymphocyte % 23.8 % (19-41); Mean Corp Hgb Conc 32.6 g/dL (32-36); Mean Corpuscular Hgb 29.4 pg (27.0-32.0); Mean Corpuscular Volume 90.1 fL (81-99); Mean Platelet Vol. 9.7 fl (6.2-12.0); Monocyte# 1.05 X10^3/uL; Monocyte% 14.4 % (0-10); NRBC Flagged by Analyzer 0 % (0-5); Neutrophil # 4.06 X10^3/uL (2.7-7.7); Neutrophil % 55.5 % (47-70); Platelet Count 417 K/mm3 (150-450); RBC Distribution Width CV 13.6 % (11.6-14.6); RBC Distribution Width SD 44.3 fl (35.1-43.9); Red Blood Count 4.25 M/mm3 (4.2-5.4); White Blood Count 7.3 K/mm3 (4.4-11.0)
[2023-05-05 06:59] LABS: Anion Gap 8 (5-15); BUN 14 mg/dL (7-18); BUN/Creat Ratio 19.9 RATIO (10-20); Calcium,Total 9.3 mg/dL (8.5-10.1); Chloride 112 mmol/L (98-107); EST Glomerular Filtration Rate 85 mL/min (>60); Est Glom Filt Rate - Afr Amer 103 mL/min (>60); Estimated Creatinine Clearance 47.33 ml/min; Glucose 105 mg/dL (74-106); Potassium 4.2 mmol/L (3.5-5.1); Sodium Level 143 mmol/L (136-145)
[2023-05-05] MEDS: Aspirin 81 MG TAB.CHEW PO (08:16)
--- NOTE | 2023-05-05 09:54 | CASEMGMT ---
Social Work Pt's daughter and POA is here, brought in LW/POA documents. SW placed copies on chart and gave the daughter the originals, Luke Lopez is pt's healthcare POA. THIAGO Monae
[2023-05-05] MEDS: Lactated Ringers 1,000 ML 15 ML IV (13:06)
--- NOTE | 2023-05-05 14:10 | EGD_PTH ---
PATHOLOGY RESULTS PATIENT: HARRISON GRIDER LOC: [facility] U#:[id number] AGE/SX: 83/F ROOM: [facility] RE05/04/[address]: Dr. Tong Whitfield DO : 1940 BED: 1 DIS: 05/06/2023 SPEC #: [id number] RECD: 05/06/23 07:43 STATUS: JOSE REQ #: [id number] YISEL: 05/05/23 14:[address]: Alfonso Gardner DEPT: SURGICAL PATHOLOGY RECD BY: Maria G Anne ENTERED: 05/06/23 08:49 SP TYPE: EGD BIOPSY OTHR DR: MD Dr. Dragan Wilburn MD Dr. Allison Jordan, DO Dr. Alicia Zha, MD Dr. Deepak Gulati, MD Dr. Hera Kamdar, MD Dr. Jan Bittar, MD Dr. James Burke, MD Dr. Kathryn Lee, DO Dr. Matthew Gusler, MD Dr. Maryam Mian, MD Dr. Mohamed Ridha, MD Dr. Mark Tereletsky, DO Dr. Mhd Ezzat Zaghlouleh, MD Dr. Peter Robinson, MD Dr. Sushil Lakhani, MD Dr. Vivien Lee, MD Richard Dennis Tompkins, CORE PASTER-C Tissues: Esophagus, NOS Procedures: Special Stain Group II Surgery Specimen Level IV Alcian Blue/PAS (control) Comments: @ Ordering doctor for SUIV edited from to @ bernard GARCIA at 05/06/23 1244 @ Submitting doctor edited from to @ by RAQUELOD at 05/06/23 1247 HEADER OPERATION: EGD with biopsy PRE-OP DIAGNOSIS: Dysphagia TISSUE SUBMITTED: Distal esophagus MICROSCOPIC DIAGNOSIS Distal esophagus, biopsy: Fragments of gastroesophageal mucosa with chronic inflammation. Intestinal metaplasia (goblet cell metaplasia) not identified. See comment. SJ:rita 05/09/2023 COMMENT Alcian blue/PAS stain with matched control is used in the evaluation of the specimen. MICROSCOPIC DESCRIPTION Slides are reviewed. GROSS DESCRIPTION Received in fixative is one container labeled with the patient's name and designated distal esophagus. The specimen consists of multiple irregular fragments of light mahajan soft tissue that in aggregate measure 0.8 x 0.5 x 0.1 cm. The specimen is totally submitted in one cassette. / STEFFANIE:rita 05/06/2023 TC:3 CPT: 12736, 04340
--- NOTE | 2023-05-05 14:27 | OP.EGD_ITS ---
Patient Name: Rachele Lopez Procedure Date: 05/05/2023 1:26 PM Date of : 1940 Age: 83 Procedure: Upper GI endoscopy Indications: Dysphagia Providers: Alfonso Gardner DO Medicines: Monitored Anesthesia Care Patient Profile: This is an 83 year old female. Refer to note in patient chart for documentation of history and physical. Patient has symptoms of acute dysphagia. Complications: No immediate complications. Procedure: Pre-Anesthesia Assessment: - Prior to the procedure, a History and Physical was performed, and patient medications and allergies were reviewed. The patient is competent. The risks and benefits of the procedure and the sedation options and risks were discussed with the patient. All questions were answered and informed consent was obtained. Patient identification and proposed procedure were verified by the physician in the pre-procedure area. Mental Status Examination: alert and oriented. Airway Examination: normal oropharyngeal airway and neck mobility. Respiratory Examination: clear to auscultation. CV Examination: normal. Prophylactic Antibiotics: The patient does not require prophylactic antibiotics. Prior Anticoagulants: The patient has taken no anticoagulant or antiplatelet agents. ASA Grade Assessment: IV - A patient with severe systemic disease that is a constant threat to life. After reviewing the risks and benefits, the patient was deemed in satisfactory condition to undergo the procedure. The anesthesia plan was to use monitored anesthesia care (MAC). Immediately prior to administration of medications, the patient was re-assessed for adequacy to receive sedatives. The heart rate, respiratory rate, oxygen saturations, blood pressure, adequacy of pulmonary ventilation, and response to care were monitored throughout the procedure. The physical status of the patient was re-assessed after the procedure. After obtaining informed consent, the endoscope was passed under direct vision. Throughout the procedure, the patient's blood pressure, pulse, and oxygen saturations were monitored continuously. The Endoscope was introduced through the mouth, and advanced to the second part of duodenum. The upper GI endoscopy was accomplished with ease. The patient tolerated the procedure well. Scope In: 1:31:36 PM Scope Out: 1:38:51 PM Total Procedure Duration Time 0 hours 7 minutes 15 seconds Findings: One benign-appearing, intrinsic moderate stenosis was found 20 to 22 cm from the incisors. This stenosis measured 3 cm (in length). The stenosis was traversed after dilation. A guidewire was placed and the scope was withdrawn. Dilation was performed with a Savary dilator with no resistance at 54 Fr. The dilation site was examined and showed moderate mucosal disruption. A moderate Schatzki ring was found in the lower third of the esophagus. A guidewire was placed and the scope was withdrawn. Dilation was performed with a Savary dilator with no resistance at 54 Fr. The dilation site was examined following endoscope reinsertion and showed moderate mucosal disruption. Estimated blood loss was minimal. This was biopsied with a cold forceps for histology. Verification of patient identification for the specimen was done. No gross lesions were noted in the entire examined stomach. The first portion of the duodenum was normal. Impression: - Benign-appearing esophageal stenosis. Dilated. - Moderate Schatzki ring. Dilated. - No gross lesions in the entire stomach. - Normal first portion of the duodenum. - No specimens collected. Recommendation: - Return patient to [facility] for ongoing care. - Resume previous diet. - Continue present medications. - Await pathology results. Procedure Code(s): --- Professional --- 56737, Esophagogastroduodenoscopy, flexible, transoral; with insertion of guide wire followed by passage of dilator(s) through esophagus over guide wire 27050, 59,51, Esophagogastroduodenoscopy, flexible, transoral; with biopsy, single or multiple CPT copyright 2021 [employer]. All rights reserved. The codes documented in this report are preliminary and upon staff development coordinator review may be revised to meet current compliance requirements. Alfonso Gardner DO 05/05/2023 2:27:10 PM This report has been signed electronically. Number of Addenda: 0 Note Initiated On: 05/05/2023 1:26 PM
--- NOTE | 2023-05-05 14:27 | OP.CCLET_ITS ---
05/05/2023 Josué Mendoza Re : Upper GI endoscopy procedure for Rachele Delgador Kelly This procedure was performed on April. My impressions and recommendations are as follows: Impressions : - Benign-appearing esophageal stenosis. Dilated. - Moderate Schatzki ring. Dilated. - No gross lesions in the entire stomach. - Normal first portion of the duodenum. - No specimens collected. Recommendations : - Return patient to [facility] [place] for ongoing care. - Resume previous diet. - Continue present medications. - Await pathology results. My findings are described in the full procedure note, which is enclosed. If I can be of further assistance, please feel free to contact me at . Sincerely, Alfonso Gardner, 05/05/2023 2:27:10 PM This report has been signed electronically.
[2023-05-05] MEDS: Acetaminophen 500 MG Tablet 1000 MG PO ×2 (14:41→19:26)
--- NOTE | 2023-05-05 18:18 | PCM.PN.HOSP ---
Reason for Visit Reason for Visit: Diagnoses Thrombocytosis, unspecified (05/04/23) Hypercalcemia (05/04/23) Dehydration (05/04/23) Dysarthria and anarthria (05/04/23) Weakness (05/04/23) Other specified abnormal findings of blood chemistry (05/04/23) Subjective Subjective Patient was seen and examined today, she underwent an EGD with dilation of the esophagus. I have elected to keep the patient in the hospital at this time to see how she responds to treatment, I will reevaluate her tomorrow for possible discharge home. Objective Data Objective Data Vital Signs: Vital Signs Temp Pulse Resp BP Pulse Ox O2 Del Method O2 Flow Rate 98.6 F 87 16 134/78 H 94 Room Air 2 05/05/23 16:24 05/05/23 16:24 05/05/23 16:24 05/05/23 16:24 05/05/23 16:24 05/05/23 16:24 05/05/23 07:07 Oxygen Flow Rate (L/min) 2 Oxygen Delivery Method Room Air Weight: 70 kg Body Mass Index (BMI) 30.1 Intake & Output: Intake and Output for Last 24 Hours 05/03/23 05/04/23 05/05/23 23:59 23:59 23:59 Intake Total 100 / 340 2030 / 2270 240 / 240 Balance 100 / 340 2030 / 2270 240 / 240 Lab / Micro Data 05/05/23 06:20 05/05/23 06:20 Labs: Laboratory Results - last 24 hr 05/05/23 06:20: WBC 7.3, RBC 4.25, Hgb 12.5, Hct 38.3, MCV 90.1, MCH 29.4, MCHC 32.6, RDW Std Deviation 44.3 H, RDW Coeff of [place] 13.6, Plt Count 417, MPV 9.7, Immature Gran % (Auto) 0.300, Neut % (Auto) 55.5, Lymph % (Auto) 23.8, [place] % (Auto) 14.4 H, Eos % (Auto) 4.4, Baso % (Auto) 1.6 H, Absolute Neuts (auto) 4.1, Absolute Lymphs (auto) 1.74, Nucleated RBC % 0, Sodium 143, Potassium 4.2, Chloride 112 H, Carbon Dioxide 23.0, Anion Gap 8, BUN 14, Creatinine 0.70, Estim Creat Clear Calc 47.33, Est GFR (MDRD) Af Amer 103, Est GFR (MDRD) Non-Af 85, BUN/Creatinine Ratio 19.9, Glucose 105, Calcium 9.3 Physical Exam Narrative alert, oriented x3, no apparent distress and average body habitus General Appearance: cooperative, well kempt and well developed Orientation / Consciousness: awake, oriented to person, oriented to place and oriented to time HEENT normocephalic, head/scalp atraumatic and moist oral mucous membranes Eyes PERRL, EOMs intact bilaterally and conjunctivae normal Neck supple, no JVD, thyroid normal and no carotid bruits General: trachea midline Resp normal respiratory effort, no retractions, no use of accessory muscles and clear to auscultation bilaterally Auscultation: Negative for rales, rhonchi or wheezes Cardio regular rate, regular rhythm, S1 normal heart sound, S2 normal heart sound, no murmurs, no rub and no gallops GI normal to inspection, nondistended, normoactive bowel sounds, soft to palpation, non-tender and non-distended Extremity Extremity Narrative: Patient's right arm is in a shoulder immobilizer due to recent surgery Skin no rashes or lesions noted General Skin Exam: no breakdown Neuro oriented x3, CN's II-XII intact bilaterally, moves all extremities, no focal motor deficits and no sensory deficits noted Neuro Narrative: Patient has some dysarthria Sensorium / Orientation: awake and alert Psych affect normal Assessment & Plan Assessment/Plan (1) Ischemic stroke: (2) Dysarthria: PLAN: Plan 1. Acute right periventricular white matter MCA distribution ischemic stroke-patient will be maintained on aspirin 81 mg daily, she will also be maintained on a statin, she is being seen by PT, OT, and speech therapy #2 silent aspiration secondary to #1-patient will need to see speech therapy tomorrow to ensure that she can safely eat #3 hypothyroidism-patient is on Synthroid #4 DVT of the left peroneal vein-patient will be placed on full anticoagulation starting this Tuesday-this Tuesday would marked 3 days after her stroke symptomology Total clinical time spent by myself addressing the patient's medical issues, reviewing all of her data, and collaborating with patient's care team: 35 minutes Charges/Coding Visit Charges Inpatient E&M: 22555 Subs Hosp L2
[2023-05-05] MEDS: Senna/Docusate Sodium 1 Tablet 2 TABLET PO (19:26)
[2023-05-05] MEDS: Atorvastatin Calcium 40 MG Tablet PO (19:26)
[2023-05-06 02:00] VITALS: BP 138/80; PULSE 84; RESP 16; TEMP 36.4; O2SAT 95
[2023-05-06 03:42] VITALS: BMI 29.9
[2023-05-06 05:06] VITALS: BP 128/75; PULSE 77; RESP 16; TEMP 36.4; O2SAT 96
[2023-05-06] MEDS: Acetaminophen 500 MG Tablet 1000 MG PO ×2 (05:48→13:00)
[2023-05-06] MEDS: Levothyroxine 25 MCG TABLET PO (05:48)
[2023-05-06 07:27] LABS: Absolute Lymphocyte Count 1.81 X10^3/uL (0.83-4.51); Absolute Neutrophil Count 3.7 X10^3/uL (2.0-7.7); Basophil# 0.09 X10^3/uL; Basophil% 1.3 % (0-1); Eosinophil# 0.26 X10^3/uL; Eosinophils% 3.7 % (0-5); Hematocrit 39.5 % (37-47); Hemoglobin 12.7 g/dL (12.0-15.0); Lymphocyte # 1.81 X10^3/ul (0.83-4.51); Lymphocyte % 25.9 % (19-41); Mean Corp Hgb Conc 32.2 g/dL (32-36); Mean Corpuscular Hgb 28.9 pg (27.0-32.0); Mean Platelet Vol. 10.1 fl (6.2-12.0); Monocyte# 1.07 X10^3/uL; Monocyte% 15.3 % (0-10); NRBC Flagged by Analyzer 0 % (0-5); Neutrophil # 3.73 X10^3/uL (2.7-7.7); Neutrophil % 53.5 % (47-70); Platelet Count 398 K/mm3 (150-450); RBC Distribution Width CV 13.6 % (11.6-14.6); RBC Distribution Width SD 44.8 fl (35.1-43.9); Red Blood Count 4.39 M/mm3 (4.2-5.4)
[2023-05-06 07:56] VITALS: O2SAT 95
[2023-05-06 08:24] VITALS: BP 125/83; PULSE 81; RESP 15; TEMP 36.7; O2SAT 92
[2023-05-06] MEDS: Senna/Docusate Sodium 1 Tablet 2 TABLET PO (08:31)
[2023-05-06] MEDS: Prenatal Vits Tablet 1 TABLET PO (08:31)
[2023-05-06] MEDS: Enoxaparin 40 MG/0.4 ML Syringe SC (08:31)
[2023-05-06] MEDS: Aspirin 81 MG TAB.CHEW PO (08:31)
--- NOTE | 2023-05-06 12:10 | DCINST_ITS ---
Discharge Instructions Diet Discharge Diet: No restrictions Activity Discharge Activity: Return to Normal Activity Weight Bearing Status: Full weight bearing Follow Up Care Test Results: Test results from this visit will be discussed in further detail at your follow- up appointment, if applicable. Discharge Plan Admission Admit Date/Time: 05/04/23 18:53 Primary Reason for Your Visit: ischemic stroke Attending Provider: Tong Whitfield Primary Care Provider: Josué Mendoza BINDER SORTER Consulting Providers: Mal Galeas; Dragan Ortiz; Debby Marlow; Jody Chase; Ade Gutierrez; Arnol Chi; Coleen Ndiaye; Dennis Mancera; Payam Wood; Abigail Chen; Cristiano Kolb; Nohemi Rodriguez; Romy Ordaz; Aurelio Hartman; Alex Chanel; Brigette Soler; Erasmo Puckett; Lalita Peacock; Corinna Springer; Carmen Peacock Instructions Additional Instructions / Restrictions: Follow-up with speech therapy Do not take any arthritis medications such as ibuprofen or Aleve while you are taking Eliquis, you may take Tylenol or narcotics for pain if you need to If you see any blood in your urine or stool or use any black stools, call your primary care physician Discharge Orders/Prescriptions Prescriptions: New aspirin 81 mg Tablet,Chewable 81 mg PO BREAKFAST Qty: 0 0RF Eliquis 5 mg tablet 5 mg PO BID Qty: 70 0RF Rx Instructions: Two twice a day for 1 week, then 1 twice a day thereafter, start 05/07/23 pantoprazole [Protonix] 40 mg tablet,delayed release (DR/EC) 40 mg PO DAILY Qty: 30 2RF Continued PNV cmb#95-ferrous fumarate-FA [] 28 mg iron- 800 mcg tablet 1 tab PO DAILY lovastatin 40 mg tablet 40 mg PO DAILY levothyroxine 25 mcg tablet 25 mcg PO DAILY fosinopril 20 mg tablet 20 mg PO DAILY omega 8-bhd-fae-fish oil [Fish Oil] 1,200 (144-216) mg capsule 1 cap PO DAILY ergocalciferol (vitamin D2) [Vitamin D2] 1,250 mcg (50,000 unit) capsule 50,000 unit PO QWEEK acetaminophen [Acetaminophen Extra Strength] 500 mg tablet 500 mg PO Q8 PRN (Reason: pain) oxycodone 5 mg Tablet 5 - 10 mg PO .q4-6hrs prn PRN (Reason: Pain Score 4-10) 7 Days Qty: 30 0RF sennosides-docusate sodium [Stool Softener-Stimulant Laxat] 8.6-50 mg Tablet 2 tab PO BID Qty: 14 0RF Discontinued aspirin 325 mg capsule 325 mg PO DAILY Hold Instructions: Resume on 04/22/23. Referrals / Follow Up: Josué Mendoza BINDER SORTER, BINDER SORTER-C [Primary Care Provider] - Disposition Disposition (needs filled in before D/C Order can be placed): Home, Self Care
--- NOTE | 2023-05-06 12:20 | DS.PCM_ITS ---
Providers Date of Admission: 05/04/23 Date of Discharge: 05/06/23 Primary Care Physician: Josué Mendoza, MULTIPLEX OPERATOR-C Consultations 05/03/23 19:19 Consult: Tele-Neurology Routine Consulting Provider: [facility] Reason for Consult: Acute Ischemic Stroke/TIA EMERGENT Consult: No Notified: Yes Date Notified: 05/03/23 Time Notified: 18:40 Method of Notification: Answering Service Nursing Unit Staff Notify [facility] of Tele-Neurology Consult: Yes 05/05/23 07:09 Consult: Gastroenterology Routine Consulting Provider: [facility] Reason for Consult: achalasia EMERGENT Consult: No Notified: Yes Date Notified: 05/05/23 Time Notified: 07:09 Method of Notification: Text Reason For Visit: L SIDED WEAKNESS Diagnosis Discharge Diagnosis (1) Ischemic stroke: Status: Acute Code(s): I63.9 - Cerebral infarction, unspecified (2) Dysarthria: Status: Acute Code(s): R47.1 - Dysarthria and anarthria Plan 1. Acute right periventricular white matter MCA distribution ischemic stroke- patient will be maintained on aspirin 81 mg daily, she will also be maintained on a statin, she is being seen by PT, OT, and speech therapy #2 silent aspiration secondary to #1-patient will need to see speech therapy tomorrow to ensure that she can safely eat #3 hypothyroidism-patient is on Synthroid #4 DVT of the left peroneal vein-patient will be placed on full anticoagulation starting this Tuesday-this Tuesday would marked 3 days after her stroke sympt omology #5 esophageal stenosis #6 Schatzki's ring Total clinical time spent by myself addressing the patient's medical issues, reviewing all of her data, and collaborating with patient's care team: 35 minutes Medications at Discharge Home Medications acetaminophen 500 mg tablet (Acetaminophen Extra Strength) 500 mg PO Q8 PRN pain 03/09/23 ergocalciferol (vitamin D2) 1,250 mcg (50,000 unit) capsule (Vitamin D2) 50,000 unit PO QWEEK 03/09/23 fosinopril 20 mg tablet 20 mg PO DAILY 03/09/23 levothyroxine 25 mcg tablet 25 mcg PO DAILY 03/09/23 lovastatin 40 mg tablet 40 mg PO DAILY 03/09/23 omega 4-ceo-ife-fish oil 1,200 mg (144 mg-216 mg) capsule (Fish Oil) 1 cap PO DAILY 03/09/23 vit no.95-ferrous fumarate 28 mg-folic acid 800 mcg tablet () 1 tab PO DAILY 03/09/23 oxycodone 5 mg tablet 5 - 10 mg (1 - 2 x 5 mg) PO .q4-6hrs prn PRN Pain Score 4- 10 7 days #30 tabs 04/08/23 sennosides 8.6 mg-docusate sodium 50 mg tablet (Stool Softener-Stimulant Laxative) 2 tab PO BID #14 tabs 04/08/23 apixaban 5 mg tablet (Eliquis) 5 mg PO BID #70 tabs 05/06/23 aspirin 81 mg chewable tablet 81 mg PO BREAKFAST #0 tabs 05/06/23 pantoprazole 40 mg tablet,delayed release (Protonix) 40 mg PO DAILY #30 tabs 05/06/23 Hospital Course Operations None Procedures 2-D Echocardiogram and EGD (With dilation of the esophagus) Summary of Care Provided Minutes Spent on Discharge: 31 Hospital Course: This 83-year-old white female was seen in the emergency room at [facility] with weakness in her left arm and hand. Patient had tried to walk at home after a nap, she was unable to walk and fell. Workup in the emergency room included a CT of the brain which was unremarkable, CT of the head and neck was normal. Lab was overall unremarkable, patient was seen by teleneurology and recommended admission for further workup. Patient was admi tted to PCU and maintained on aspirin, echocardiogram was obtained which showed the presence of a right to left shunt, patient underwent venous duplex of her legs which showed the presence of a clot below the knee. Patient was having some dysphagia during her hospital stay, she was seen by PT OT and speech therapy, due to concerns from speech therapy, gastroenterology was consulted and performed an EGD which showed a mild esophageal stenosis which was dilated and a Schatzki's ring which was dilated. Patient overall did well during her hospital stay, I discussed anticoagulation with the patient and told her that it would be necessary to start it after several days from her stroke. I discussed this with teleneurology also. On 05/06/2023, patient was seen and examined: On examination she appeared in good health and spirits, she does not appear to be in any distress. Vital signs as documented. Skin warm and dry and without overt rashes. Neck without JVD, thyroid appears normal, trachea is midline, neck is supple. Lungs clear, normal air movement was noted. Heart exam notable for regular rhythm, normal sounds and absence of murmurs, rubs or gallops. Abdomen unremarkable and without evidence of organomegaly, masses, or abdominal aortic enlargement, bowel sounds are present in all 4 quadrants, no abdominal tenderness was noted. Extremities nonedematous, no cyanosis was noted, no clubbing was noted. Patient has a right shoulder immobilizer in place. Neuro: Cranial nerves II through XII are grossly intact, no focal motor deficits were noted, sensation to light touch and pinpric k is intact, motor exam 5/5 throughout. Psych: Patient is alert and oriented x3, she does not appear anxious or depressed, she does not appear agitated. Patient was discharged to home in stable condition on 05/06/2023. Weight / BMI Weight Weight: 69.4 kg Body Mass Index (BMI) 29.9 ABG / Lab / Microbiology Data 05/06/23 06:35 05/05/23 06:20 Laboratory: Laboratory Results - last 24 hr 05/06/23 06:35: WBC 7.0, RBC 4.39, Hgb 12.7, Hct 39.5, MCV 90.0, MCH 28.9, MCHC 32.2, RDW Std Deviation 44.8 H, RDW Coeff of [place] 13.6, Plt Count 398, MPV 10.1, Immature Gran % (Auto) 0.300, Neut % (Auto) 53.5, Lymph % (Auto) 25.9, [place] % (Auto) 15.3 H, Eos % (Auto) 3.7, Baso % (Auto) 1.3 H, Absolute Neuts (auto) 3.7, Absolute Lymphs (auto) 1.81, Nucleated RBC % 0 D/C Instructions Discharge Diet: No restrictions Weight Bearing Status: Full weight bearing Meaningful Use Info Meaningful Use Diagnoses (Choose all that apply): Ischemic CVA CVA Therapy Assessed for PT,OT and/or ST?: Yes Ischemic Stroke Antithrombotic order at d/c?: Yes Dx of Atrial fib/flutter?: No Anticoagulant at discharge?: No Reason anticoagulant not ordered: Treatment not Indicated Statins at discharge?: Yes Primary Dx Acute Ischemic CVA?: Yes IV thrombolytic ordered during stay?: No Reason IV thrombolytic not ordered: Treatment not Indicated Discharge Plan Admission Admit Date/Time: 05/04/23 18:53 Primary Reason for Your Visit: ischemic stroke Attending Provider: Tong Whitfield Primary Care Provider: Josué Mendoza MULTIPLEX OPERATOR Consulting Providers: Mal Galeas; Dragan Ortiz; Debby Marlow; Jody Chase; Ade Gutierrez; Arnol Chi; Coleen Ndiaye; Dennis Mancera; Payam Wood; Abigail Chen; Cristiano Kolb; Nohemi Rodriguez; Romy Ordaz; Aurelio Hartman; Alex Chanel; Brigette Soler; Erasmo Puckett; aLlita Peacock; Corinna Springer; Carmen Peacock Instructions Additional Instructions / Restrictions: Follow-up with speech therapy Do not take any arthritis medications such as ibuprofen or Aleve while you are taking Eliquis, you may take Tylenol or narcotics for pain if you need to If you see any blood in your urine or stool or use any black stools, call your [facility] physician Discharge Orders/Prescriptions Prescriptions: New aspirin 81 mg Tablet,Chewable 81 mg PO BREAKFAST Qty: 0 0RF Eliquis 5 mg tablet 5 mg PO BID Qty: 70 0RF Rx Instructions: Two twice a day for 1 week, then 1 twice a day thereafter, start 05/07/23 pantoprazole [Protonix] 40 mg tablet,delayed release (DR/EC) 40 mg PO DAILY Qty: 30 2RF Continued PNV cmb#95-ferrous fumarate-FA [] 28 mg iron- 800 mcg tablet 1 tab PO DAILY lovastatin 40 mg tablet 40 mg PO DAILY levothyroxine 25 mcg tablet 25 mcg PO DAILY fosinopril 20 mg tablet 20 mg PO DAILY omega 2-ync-kww-fish oil [Fish Oil] 1,200 (144-216) mg capsule 1 cap PO DAILY ergocalciferol (vitamin D2) [Vitamin D2] 1,250 mcg (50,000 unit) capsule 50,000 unit PO QWEEK acetaminophen [Acetaminophen Extra Strength] 500 mg tablet 500 mg PO Q8 PRN (Reason: pain) oxycodone 5 mg Tablet 5 - 10 mg PO .q4-6hrs prn PRN (Reason: Pain Score 4-10) 7 Days Qty: 30 0RF sennosides-docusate sodium [Stool Softener-Stimulant Laxat] 8.6-50 mg Tablet 2 tab PO BID Qty: 14 0RF Discontinued aspirin 325 mg capsule 325 mg PO DAILY Hold Instructions: Resume on 04/22/23. Referrals / Follow Up: Josué Mendoza MULTIPLEX OPERATOR, MULTIPLEX OPERATOR-C [Primary Care Provider] - Disposition Disposition (needs filled in before D/C Order can be placed): Home, Self Care Charges/Coding Visit Charges Inpatient E&M: 61575 Disch Hosp >30min
[2023-05-06 13:22] VITALS: BMI 29.9
--- NOTE | 2023-05-06 14:25 | PHA.DC_ITS ---
Pharmacy [place] Med Reconciliation Pharmacy Service has performed discharge medication reconciliation for this patient. Medication education papers prepared, patient discharged when counseling was attempted. The patient's discharge medication list was reviewed for discrepancies and discrepancies were resolved. Medications at Discharge Home Medications acetaminophen 500 mg tablet (Acetaminophen Extra Strength) 500 mg PO Q8 PRN pain 03/09/23 ergocalciferol (vitamin D2) 1,250 mcg (50,000 unit) capsule (Vitamin D2) 50,000 unit PO QWEEK 03/09/23 fosinopril 20 mg tablet 20 mg PO DAILY 03/09/23 levothyroxine 25 mcg tablet 25 mcg PO DAILY 03/09/23 lovastatin 40 mg tablet 40 mg PO DAILY 03/09/23 omega 6-tfj-vcy-fish oil 1,200 mg (144 mg-216 mg) capsule (Fish Oil) 1 cap PO DAILY 03/09/23 vit no.95-ferrous fumarate 28 mg-folic acid 800 mcg tablet () 1 tab PO DAILY 03/09/23 oxycodone 5 mg tablet 5 - 10 mg (1 - 2 x 5 mg) PO .q4-6hrs prn PRN Pain Score 4- 10 7 days #30 tabs 04/08/23 sennosides 8.6 mg-docusate sodium 50 mg tablet (Stool Softener-Stimulant Laxative) 2 tab PO BID #14 tabs 04/08/23 apixaban 5 mg tablet (Eliquis) 5 mg PO BID #70 tabs 05/06/23 aspirin 81 mg chewable tablet 81 mg PO BREAKFAST #0 tabs 05/06/23 pantoprazole 40 mg tablet,delayed release (Protonix) 40 mg PO DAILY #30 tabs 05/06/23
== END 2023-05-06 13:19 | disposition home or self-care (01) | DRG 65 ==
LOC: ED 16:01 → PCU 17:39
PROVIDERS: Internal Medicine Gastroenterology; Admitting Provider Internal Medicine; Emergency Provider Emergency Medicine; PCP Nurse Practitioner Family; Visit Provider Internal Medicine
PROC: 0DJ08ZZ Inspection of Upper Intestinal Tract, Via Natural or Artificial Opening Endoscopic (ICD-10-PCS; CPT 43235; principal; 2023-05-05 14:05)
DX: I63.9 Cerebral infarction, unspecified (principal); I82.452 Acute embolism and thrombosis of left peroneal vein; E86.0 Dehydration; I10 Essential (primary) hypertension; E03.9 Hypothyroidism, unspecified; K22.2 Esophageal obstruction; E83.52 Hypercalcemia; E78.5 Hyperlipidemia, unspecified; E66.9 Obesity, unspecified; Z96.612 Presence of left artificial shoulder joint; Z79.82 Long term (current) use of aspirin; Z96.611 Presence of right artificial shoulder joint; Z68.32 Body mass index [BMI] 32.0-32.9, adult; R13.10 Dysphagia, unspecified; R47.1 Dysarthria and anarthria
CPT/HCPCS: 36415; 70450; 70496; 70498; 70551; 71045; 74230; 80048; 80053; 80061; 82962; 83036; 83735; 84100; 84443; 84484; 85025; 85610; 85730; 88305; 88313; 92610; 92611; 93005; 93306; 93970; 94668; 94762; 97116; 97162; 97166; 99285; J7030; J7120; Q9957; Q9967; A4216; C1769; C8929; J2405

== ENCOUNTER 2023-05-12 11:45 | Outpatient (RCR) | payer MEDICARE, OTHER, SELFPAY ==
--- NOTE | 2023-05-12 12:56 | ST ---
[facility] Speech Pathology [address] [place] [address] Modified Barium Swallow Study MR#: [id number] Acct: [id number] Name: HARRISON GRIDER Rep #: [id number] : 1940 83 From: Eladia Gomez M.A., [facility]-[employer] PRODUCER Modified Barium Swallow Patient Information Study Date: 05/04/23 Study Time: 13:30 Direct Billable Minutes: 99 Total Minutes procedure & reportin Diagnosis: Dehydration E86.0, Left-sided weakness R53.1 Referring Physician: Tong Whitfield Reason for Referral: Objectively assess swallow function, assess risk for aspiration, and determine recommendations for least restrictive diet textures and compensatory strategies to improve safety of swallow. Medical History: PMH:?High cholesterol, History of echocardiogram, Hypertension, Loss of hearing, Thyroid disease Patient presented to [facility] ED on 05/03/2023 with complaints of left sided weakness. Patient reported noticing left sided weakness when completing daily tasks when compared to her baseline. After admission, patient developed some left-sided facial weakness and her speech seemed to worsen per nursing staff and daughter report. CT scan of patient's brain was unremarkable for any acute intracranial findings. Patient's chest x-ray is unremarkable for any acute findings. MBSS requested due to choking incident drinking sequential sips of water during bedside swallow exam.? Current Diet Ordered: NPO Dentition: Upper Dentures and Lower Dentures Mental Status: WNL Respiratory Status: Oxygenating on Room Air Penetration-Aspiration Scale Penetration-Aspiration Scale: OBJECTIVE ASSESSMENT OF SWALLOW FUNCTION (QUANTITATIVE ? PER TRIAL): PENETRATION / ASPIRATION SCALE (SALMON): 1 = does not enter airway 2 = enters airway/above vocal folds/ejected 3 = enters airway/above vocal folds/not ejected 4 = enters airway/contacts vocal folds/ejected 5 = enters airway/contacts vocal folds/not ejected 6 = enters airway/below vocal folds/ejected 7 = enters airway/below vocal folds/not ejected despite effort 8 = enters airway/below vocal folds/no effort VIDEOFLOROSCOPIC SCALE SCORE (SALMON): Grade I = aspiration of material that has penetrated into the laryngeal vestibule, intact cough reflex Grade II = aspiration < 10 % of the bolus, intact cough reflex Grade III = aspiration of < 10 % of the bolus, reduced cough reflex or aspiration of > 10 % of the bolus, intact cough reflex Grade IV = aspiration of > 10 % of the bolus, reduced cough reflex Penetration-Aspiration Scale Score Thin Liquid via teaspoon: Result: 1= does not enter airway Thin Liquid via teaspoon Trial 2: Result: 2= enter airway/above vocal folds/ejected Thin Liquid via small single sip: cup: Result: 2= enter airway/above vocal folds/ejected [place] Thick Liquid via small single sip: cup: Result: 8= enters airway/below vocal folds/no effort Comment: Trace SILENT aspiration Pudding via teaspoon: Result: 1= does not enter airway Comment: Esophageal screen Thin Liquid via single sip: straw: Result: 1= does not enter airway Comment: cued cough and re-swallow 1/2 cookie: Result: 1= does not enter airway Thin Liquid via small single sip: cup Trial 2: Result: 2= enter airway/above vocal folds/ejected Oral Phase Labial Seal: Interlabial escape, no progression to anterior lip Tongue Control During Bolus Hold: Escape to lateral buccal cavity/floor of mouth Bolus Preparation/Mastication: Slow prolonged chewing/mashing with complete recollection Bolus Transport/Lingual Motion: Repetitive/disorganized tongue motion (piecemeal) Oral Residue: Residue collection on oral structures Pharyngeal Phase Initiation of Pharyngeal Swallow: Bolus head at posterior laryngeal surgace of epiglottis Soft Palate Elevation: Trace column of contrast/air between soft palate and pharyngeal wall Laryngeal Elevation: Partial superior movement thyroid cart/partial apprx aryt-epig petiole Anterior Hyoid Excursion: Partial anterior movement Epiglottic Movement: No inversion Laryngeal Vestibule Closure at Height of Swallow: Incomplete; narrow column of air/contrast in laryngeal vestibule Pharyngeal Stripping Wave: Present - diminished Pharyngoesophageal Segment Opening: Parital distension and partial duration; parital obstruction of flow Tongue Base Retraction: Wide column of contrast between tongue base & post. pharyngeal wall Pharyngeal Residue: Majority of contrast within or on pharyngeal structures (~50% of pudding contrast remained in the pharynx after the first swallow) Esophageal Phase Esophageal Clearance: Esophageal retention Diagnosis/Impression Diagnosis: Moderate Oropharyngeal Dysphagia R13.12, Esophageal Dysphagia R13.14 Impression: The oral phase is primarily marked by... -Decreased bolus control with bolus spilling into floor of mouth and buccal cavities. -Slowed tongue motion. Prolonged and disorganized A-P transport of pudding and cookie trials. -Trace oral residue lining structures after the swallow. Observed pocketing of cookie on left side. -Prolonged, but adequate mastication of cookie trial. The pharyngeal phase is primarily marked by... -Decreased airway closure during the swallow due to no epiglottic inversion and mildly decreased laryngeal elevation. -Moderately decreased tongue base retraction, mildly decreased UES opening/duration, and moderately decreased pharyngeal stripping wave with resulting moderate-severe pharyngeal residues after the swallow. Multiple swallows and liquid washes somewhat helped clear pharyngeal residues. -Trace SILENT aspiration of nectar thick liquids by cup. Trace laryngeal penetration of thin liquids with full ejection 3X. Use of cough and reswallow after thin liquids by cup was effective in decreasing residues remaining in the laryngeal vestibule after the swallow. The esophageal phase is primarily marked by... -Significant esophageal retention of pudding in mid and lower esophagus. Thin liquid wash was somewhat effective in clearing pudding contrast from the esophagus. Recommendations Diet: Regular Textures (Easy to chew) and Thin Liquids Comment: Check for left-sided pocketing, intermittent cough and re-swallow Compensatory Strategies: Small Bites, Small Sips, Slow Rate, Multiple Swallows, Alternate bites/solids and sips/liquids (1:1 ratio), Sitting upright and Remain sitting upright for 30 minutes after PO intake Supervision: 1:1 Close Supervision Recommend Repeat Modified Barium Swallow: TBD Need for Skilled Speech Therapy Services: Yes Comment: -Train the patient in use of strategies to decrease risk for aspiration and reflux aspiration. -Ongoing assessment of diet tolerance of recommended textures. -Train the patient oropharyngeal exercise program to pharyngeal motility, tongue base retraction, airway closure (Meg, Effortful, Alissa, CTAR). Recommended Referrals: GI Consult Education Completed: 1. Described result of evaluation. and 2. Pt understands evaluation & agrees with goals and treatment plan. Status Active ST Patient: Active Contact Information [facility] Speech Therapy:: Eladia Gomez M.A. [facility]ODUCER? Speech-Language Pathologist?? [facility] [address]?? [place] [address]?? [email or web address]?? [phone]?? 05/04/23 2595 <Electronically signed by Eladia Gomez M.A., CCC-LIVESTOCK PRODUCER> Date/Time Eladia Gomez M.A., CCC-LIVESTOCK PRODUCER Co-Signature Required for all Medicare patients Date/Time Co-Signature CC: ~
--- NOTE | 2023-05-12 13:59 | HP.SP.EVAL ---
Visit History Visit Info Date of Eval: 05/12/23 Visit: 1 Advisory Intern: MARIA History Attending Doctor: Referring Doctor: Reason for Referral: DYSARTHRIA. PT HAS RX Medical Diagnosis: oropharynegal dysphagia Previous speech therapy: No Results: Rachele is an 83 year old woman who was seen for a speech and dysphagia evaluation sp CVA on 05/03/23. Pt was accompanied by her daughter who she lives with. Pt initially had trouble with speech and swallowing after her CVA, but notes great improvement since hospital discharge. Other Relevant Medical History/Diagnoses/Surgery: esophagus dilation while in hospital due to retention noted in the esophagus on the MBSS. MBSS completed on 05/04 Smoking Status: Never smoker Diagnosis Diagnosis: mild oropharynegal dysphagia Pain Is pain an issue with your current prescribed condition?: No Personal Preferred language: Surinamese Patient Allergies Allergies Allergies: Allergies amoxicillin [From Augmentin] Adverse Reaction (Intermediate, Verified 05/03/23 15:49) Rash clavulanic acid [From Augmentin] Adverse Reaction (Intermediate, Verified 05/03/23 15:49) Rash Objective Oralfacial Myology Breathing Breathing: Nose Jaw Jaw Stability: WNL Tongue/Mandible Differentiation Horizontal: WNL Lateralization: WNL Vertical: WNL Orthodontia Orthodontia: Pt has top and bottom dentures that fit well and she has used them for a long time. Lips Lips: Competent Posture: Open Retraction: WNL Rounding: WNL Tongue Resting Position: Protrusion, Touching upper teeth, Touching lower teeth and Alveolar ridge Articulation Additional: Pt read the grandfather passage with no articulation errors noted. Pt also participated in conversation with no articulation errors noted. Pt reports slurring when she first returned home, but now she stated that she no longer has any issues. Objective Dysphagia Administered by Administered by: Self Thin Liquids Administred via: Cup and Straw Oral Transit: WNL Cough: throat clear Pharyngeal phase: immediate laryngeal elevation Patient Report: no issues Pureed Administered via: Spoon Oral Preparation: WNL Oral Transit: WNL Bolus clearance: fully cleared Cough: none observed/unable to assess Pharyngeal phase: immediate laryngeal elevation Soft & Bite sized (Mechanical) Administered via: Spoon Bolus clearance: significant clearance/minimal residue Cough: none observed/unable to assess Pharyngeal phase: immediate laryngeal elevation Regular Oral Preparation: WNL Oral Transit: Delay > 5 seconds Bolus clearance: significant clearance/minimal residue Cough: delayed and throat clear Pharyngeal phase: laryngeal elevation mildly restricted slow initiation Patient Report: Able to clear min residue with a liquid wash. No pocketing noted with all consistencies Comments: increased throat clearing with Aliyah Doones and a cough on x1 bite. Swallowing Impairment Contributing Factors to Swallowing Impairment: Reduced Laryngeal Excursion Impact Impact on Safety & Functioning: Risk for Aspiration Recommendations Modified Barium Swallow/Cookie Swallow Recommended: No Diet Texture Recommendations Solids: Easy to Chew (Level 7) Liquids: Thin (Level 0) Other: Pt attributed coughing and throat clearing to nasal drippage. Discussed other possible swallowing related reasons Safety Saftey Precautions/Swallowing Recommendations (Check all that Apply): Upright Position at Least 30 Minutes After Meals, Small Sips & Bites when Eating and Alternate Liquids & Solids Other: Provided swallowing exercises handout and direct education for how to complete the exercises (CTAR, Masko, Alissa, and effortful swallow). Also provided a handout for compensatory strategies Results Swallowing Within Normal Limits: No Swallowing Diagnosis: Oropharyngeal Phase Dysphagia (R13.12) Severity: Mild Modified Barium Results Hx If Applicable Enter into a NOTE MBS Report Entered: Yes MBS Results (from prior exam): 05/12/23 12:56 Speech Therapy by Eladia Escalona [facility] Speech Pathology [address] [place] [id number] Modified Barium Swallow Study MR#: [id number] Acct: [id number] Name: RACHELE GRIDER Rep #: [id number] : 1940 83 From: Eladia Gomez M.A. [facility] MACHINE OPERATOR Modified Barium Swallow Patient Information Study Date: 05/04/23 Study Time: 13:30 Direct Billable Minutes: 99 Total Minutes procedure & reportin Diagnosis: Dehydration E86.0, Left-sided weakness R53.1 Referring Physician: Tong Whitfield Reason for Referral: Objectively assess swallow function, assess risk for aspiration, and determine recommendations for least restrictive diet textures and compensatory strategies to improve safety of swallow. Medical History: PMH:?High cholesterol, History of echocardiogram, Hypertension, Loss of hearing, Thyroid disease Patient presented to [facility] ED on 05/03/2023 with complaints of left sided weakness. Patient reported noticing left sided weakness when completing daily tasks when compared to her baseline. After admission, patient developed some left-sided facial weakness and her speech seemed to worsen per nursing staff and daughter report. CT scan of patient's brain was unremarkable for any acute intracranial findings. Patient's chest x-ray is unremarkable for any acute findings. MBSS requested due to choking incident drinking sequential sips of water during bedside swallow exam.? Current Diet Ordered: NPO Dentition: Upper Dentures and Lower Dentures Mental Status: WNL Respiratory Status: Oxygenating on Room Air Penetration-Aspiration Scale Penetration-Aspiration Scale: OBJECTIVE ASSESSMENT OF SWALLOW FUNCTION (QUANTITATIVE ? PER TRIAL): PENETRATION / ASPIRATION SCALE (SALMON): 1 = does not enter airway 2 = enters airway/above vocal folds/ejected 3 = enters airway/above vocal folds/not ejected 4 = enters airway/contacts vocal folds/ejected 5 = enters airway/contacts vocal folds/not ejected 6 = enters airway/below vocal folds/ejected 7 = enters airway/below vocal folds/not ejected despite effort 8 = enters airway/below vocal folds/no effort VIDEOFLOROSCOPIC SCALE SCORE (SALMON): Grade I = aspiration of material that has penetrated into the laryngeal vestibule, intact cough reflex Grade II = aspiration < 10 % of the bolus, intact cough reflex Grade III = aspiration of < 10 % of the bolus, reduced cough reflex or aspiration of > 10 % of the bolus, intact cough reflex Grade IV = aspiration of > 10 % of the bolus, reduced cough reflex Penetration-Aspiration Scale Score Thin Liquid via teaspoon: Result: 1= does not enter airway Thin Liquid via teaspoon Trial 2: Result: 2= enter airway/above vocal folds/ejected Thin Liquid via small single sip: cup: Result: 2= enter airway/above vocal folds/ejected [place] Thick Liquid via small single sip: cup: Result: 8= enters airway/below vocal folds/no effort Comment: Trace SILENT aspiration Pudding via teaspoon: Result: 1= does not enter airway Comment: Esophageal screen Thin Liquid via single sip: straw: Result: 1= does not enter airway Comment: cued cough and re-swallow 1/2 cookie: Result: 1= does not enter airway Thin Liquid via small single sip: cup Trial 2: Result: 2= enter airway/above vocal folds/ejected Oral Phase Labial Seal: Interlabial escape, no progression to anterior lip Tongue Control During Bolus Hold: Escape to lateral buccal cavity/floor of mouth Bolus Preparation/Mastication: Slow prolonged chewing/mashing with complete recollection Bolus Transport/Lingual Motion: Repetitive/disorganized tongue motion (piecemeal) Oral Residue: Residue collection on oral structures Pharyngeal Phase Initiation of Pharyngeal Swallow: Bolus head at posterior laryngeal surgace of epiglottis Soft Palate Elevation: Trace column of contrast/air between soft palate and pharyngeal wall Laryngeal Elevation: Partial superior movement thyroid cart/partial apprx aryt-epig petiole Anterior Hyoid Excursion: Partial anterior movement Epiglottic Movement: No inversion Laryngeal Vestibule Closure at Height of Swallow: Incomplete; narrow column of air/contrast in laryngeal vestibule Pharyngeal Stripping Wave: Present - diminished Pharyngoesophageal Segment Opening: Parital distension and partial duration; parital obstruction of flow Tongue Base Retraction: Wide column of contrast between tongue base & post. pharyngeal wall Pharyngeal Residue: Majority of contrast within or on pharyngeal structures (~50% of pudding contrast remained in the pharynx after the first swallow) Esophageal Phase Esophageal Clearance: Esophageal retention Diagnosis/Impression Diagnosis: Moderate Oropharyngeal Dysphagia R13.12, Esophageal Dysphagia R13.14 Impression: The oral phase is primarily marked by... -Decreased bolus control with bolus spilling into floor of mouth and buccal cavities. -Slowed tongue motion. Prolonged and disorganized A-P transport of pudding and cookie trials. -Trace oral residue lining structures after the swallow. Observed pocketing of cookie on left side. -Prolonged, but adequate mastication of cookie trial. The pharyngeal phase is primarily marked by... -Decreased airway closure during the swallow due to no epiglottic inversion and mildly decreased laryngeal elevation. -Moderately decreased tongue base retraction, mildly decreased UES opening/duration, and moderately decreased pharyngeal stripping wave with resulting moderate-severe pharyngeal residues after the swallow. Multiple swallows and liquid washes somewhat helped clear pharyngeal residues. -Trace SILENT aspiration of nectar thick liquids by cup. Trace laryngeal penetration of thin liquids with full ejection 3X. Use of cough and reswallow after thin liquids by cup was effective in decreasing residues remaining in the laryngeal vestibule after the swallow. The esophageal phase is primarily marked by... -Significant esophageal retention of pudding in mid and lower esophagus. Thin liquid wash was somewhat effective in clearing pudding contrast from the esophagus. Recommendations Diet: Regular Textures (Easy to chew) and Thin Liquids Comment: Check for left-sided pocketing, intermittent cough and re-swallow Compensatory Strategies: Small Bites, Small Sips, Slow Rate, Multiple Swallows, Alternate bites/solids and sips/liquids (1:1 ratio), Sitting upright and Remain sitting upright for 30 minutes after PO intake Supervision: 1:1 Close Supervision Recommend Repeat Modified Barium Swallow: TBD Need for Skilled Speech Therapy Services: Yes Comment: -Train the patient in use of strategies to decrease risk for aspiration and reflux aspiration. -Ongoing assessment of diet tolerance of recommended textures. -Train the patient oropharyngeal exercise program to pharyngeal motility, tongue base retraction, airway closure (Meg, Effortful, Alissa, CTAR). Recommended Referrals: GI Consult Education Completed: 1. Described result of evaluation. and 2. Pt understands evaluation & agrees with goals and treatment plan. Status Active ST Patient: Active Contact Information [facility] Speech Therapy:: Eladia Gomez M.A. [employer] MACHINE OPERATOR? Speech-Language Pathologist?? [place] [address]?? [place] [address]?? [email or web address]?? [phone]?? 05/04/23 1546 <Electronically signed by Eladia Gomez M.A. [employer] MACHINE OPERATOR> Date/Time Eladia Goemz M.A. [employer] MACHINE OPERATOR Co-Signature Required for all Medicare patients Date/Time Co-Signature CC: ~ Initialized on 05/12/23 12:56 - END OF NOTE Subjective Cog/Ling/Com Subjective Cognitive/Linguistic/Communication: No problems reported cognition since returning home. Pt continues to cook, manage finances, and complete all other cognitive ADL's independently Objective Dysarthira/Motor Speech Intelligibility Phonemes: WNL Single Words: WNL Phrases: WNL Sentences: WNL Paragraphs: WNL Conversation: WNL Volume Volume: WNL Sounds Sounds in Error: none Observation Observation of Apraxia of Speech: No Oral Groping for Placement: No Inconsistent Errors: No Swallowing Performance Scale Swallowing Performance Scale Swallowing Performance Scale Result: 3 Mild Reference: Neuro-QoL instrument Radiation Oncology Patient Plan Plan Plan: Will rx Pt for skilled outpatient tx to address deficits in oropharyngeal dysphagia. Pt would benefit from training and education re: diet tolerance checks, compensatory strategies and swallowing exercises to aid in oropharyngeal strengthening. Without skilled intervention, Pt is at risk for consuming a restrictive diet putting her at risk for aspiration pneumonia and atrophy of laryngeal musculature Recommendations MBS: No Treatment Warranted: Yes Treatment Warranted: Dysphagia Progress Prognosis: Excellent Frequency Frequency: 2x /Week Duration: 6 Weeks Goals that are Established Determination:: Goals will be added/modified as deemed necessary and appropriate. Therapy will be discontinued when results of re-evaluation indicate therapy is no longer needed or lack of progress has been documented. Goal #1-5 Goal #1: Pt will complete oropharyngeal exercises (CTAR, effortful swallow, Masko and Alissa) for 10 reps, 2x/day independently to improve tongue base retraction, PES opening/distention, and hyolaryngeal elevation and excursion as measured by pt & caregiver compliance reports. Goal #2: Pt will utilize compensatory strategies (small sips & bites, alt. sips & bites, sit upright) and tolerate least restrictive diet with no overt s/s of aspiration/penetration to aid in safe consumption of solid/liquids independently during bolus trials given up to min cues during measured sessions. Education Patient has Indicated that the Following Identified Educational Needs: None The Patient has indicated that they have no educational or learning abilities that may effect their care.: Yes Patient Instruction Patient Education: Diagnosis, Treatment Plan, Goals, Safety Precautions, Diet Level and Home Exercise Program Person Taught: Patient and Family Teaching Method: Discussion Response to teaching: Verbalize understanding
== END 2023-05-12 19:00 | disposition home or self-care (01) ==
LOC: SP 11:45
PROVIDERS: PCP Nurse Practitioner Family; Referring Provider Internal Medicine; Visit Provider Internal Medicine
DX: R47.1 Dysarthria and anarthria (principal)
CPT/HCPCS: 92522; 92610

== ENCOUNTER → 2023-09-15 | Outpatient (CLI) | payer MEDICARE, OTHER, SELFPAY | END | disposition home or self-care (01) | LOC: PSN 07:29 | PROVIDERS: PCP Nurse Practitioner Family; Referring Provider Nurse Practitioner Family; Visit Provider Nurse Practitioner Family | DX: R55 Syncope and collapse (principal); R00.2 Palpitations; R06.02 Shortness of breath | CPT/HCPCS: 93225; 93226 ==

== ENCOUNTER → 2023-10-06 | Outpatient (CLI) | payer MEDICARE, OTHER, SELFPAY | END | disposition home or self-care (01) | LOC: PSN 08:24 | PROVIDERS: PCP Nurse Practitioner Family; Referring Provider Nurse Practitioner Family; Visit Provider Nurse Practitioner Family | DX: R06.02 Shortness of breath (principal) | CPT/HCPCS: 94060; 94726; 94729 ==

== ENCOUNTER → 2023-10-07 | Outpatient (CLI) | payer MEDICARE, OTHER, SELFPAY ==
--- NOTE | 2023-10-07 12:51 | ECHOCS_ITS ---
Reason For Study: SOB on Exertion Procedure This was a 2D Doppler, Color Flow transthoracic echocardiogram. Technically difficult study due to patient body habitus. Contrast injection performed. Exam performed in department. Left Ventricle Normal size and thickness. The left ventricular ejection fraction is 65 %. Normal diastology for age. Right Ventricle Normal right ventricle. Atria The left and right atria are normal. Mitral Valve Moderate mitral annular calcification. The mitral valve chordae are thickened and/or calcified. Trivial mitral valve insufficiency. Tricuspid Valve Trivial tricuspid valve insufficiency. Normal pulmonary artery pressure. Aortic Valve Aortic sclerosis, no stenosis. Mild (1+) aortic valve insufficiency. Pulmonic Valve The pulmonic valve is not well visualized. Trivial pulmonic valve insufficiency. Great Vessels Mildly dilated aortic root. Pericardium/Pleural No pericardial effusion. Medication IV placed in left arm from Radiology for CT Scan prior to echo. Diluted definity 3ml given slow IV push to enhance endocardial definition. MMode/2D Measurements & Calculations LVIDd: 4.0 cm IVSd: 0.96 cm Ao root diam: 4.1 cm LVIDs: 2.9 cm LVPWd: 0.83 cm FS: 27.7 % LAV(MOD-bp): 25.1 ml LVAd ap4: 19.7 cm2 SV(MOD-sp4): 34.5 ml LAV(MOD-bp) Indexed: 15.1 ml/m2 LVLd ap4: 6.1 cm LAV(MOD-sp2): 23.7 ml EDV(MOD-sp4): 51.9 ml LAV(MOD-sp4): 24.7 ml EDV(sp4-el): 53.6 ml LVAs ap4: 9.5 cm2 LVLs ap4: 4.2 cm ESV(MOD-sp4): 17.4 ml ESV(sp4-el): 18.3 ml EF(MOD-sp4): 66.5 % EF(sp4-el): 65.8 % SV(sp4-el): 35.3 ml LA A4 area: 11.3 cm2 Time Measurements MV dec time: 0.19 sec Doppler Measurements & Calculations MV E max neptali: 76.7 cm/sec Lat Peak E' Neptali: 5.0 cm/sec Med Peak E' Neptali: 5.1 cm/sec MV A max neptali: 108.1 cm/sec E/E' lat: 15.2 E/E' med: 15.0 MV E/A: 0.71 MV V2 max: 128.6 cm/sec MV P1/2t max neptali: 78.6 cm/sec Ao V2 max: 132.0 cm/sec MV max P.6 mmHg MV P1/2t: 75.0 msec Ao max P.0 mmHg MV V2 mean: 63.0 cm/sec Ao V2 mean: 86.8 cm/sec MV mean P.9 mmHg MV dec slope: 306.6 cm/sec2 Ao mean P.5 mmHg MV V2 VTI: 29.0 cm MVA(P1/2t): 2.9 cm2 Ao V2 VTI: 28.1 cm AV (velocity ratio): 0.70 LV V1 max: 88.5 cm/sec PA V2 max: 120.7 cm/sec TR max neptali: 175.5 cm/sec LV V1 max P.1 mmHg TR max P.3 mmHg LV V1 mean P.8 mmHg LV V1 mean: 61.5 cm/sec LV V1 VTI: 19.8 cm ECHO/Echo Complete W/ Contrast Interpretation Summary The left ventricular ejection fraction is 65 %. Moderate mitral annular calcification. The mitral valve chordae are thickened and/or calcified. Aortic sclerosis, no stenosis. Mild (1+) aortic valve insufficiency. Mildly dilated aortic root. Ordering Physician: Josué Mendoza Referring Physician: Josué Mendoza Performed By: Wes Marcano RCS
--- NOTE | 2023-10-07 13:11 | CT_ITS ---
STUDY: CTA CHEST REASON FOR EXAM: Female, 83 years old. SOB ON EXERTION, PRESYNCOPE, HEART PALPITATIONS RADIATION DOSAGE (If Supplied By Facility): CTDIvol = ( 11.92 ) mGy, DLP = ( 409.80 ) mGycm TECHNIQUE: The examination was performed with the intravenous administration of IV 100mL Isovue-370. Post-processing of the angiographic images was performed, with multiplanar reformation and 3D reconstruction. Individualized dose optimization techniques were used for this CT. COMPARISON: Comparison is made with prior study dated March 31, 2023. FINDINGS: Normal enhancement of the main pulmonary artery and right and left pulmonary arteries. Normal enhancement of the bilateral peripheral pulmonary arteries. There is no demonstrated pulmonary embolism. Normal thoracic aorta and visualized great vessels. There is no demonstrated aortic dissection. There are calcifications of the coronary arteries. Normal mediastinum. Normal hilar regions. Normal visualized trachea and bronchi. The lungs are well expanded. Normal pulmonary parenchyma. Normal pleura. Normal chest wall structures. Normal osseous structures. Nonobstructive punctate calculus in the upper pole calyx of the right kidney. Small hiatal hernia. Stable 2.3 cm x 1.7 cm hypodense nodule in the upper medial portion of the spleen. CT/CTA Chest W/WO Contrast IMPRESSION: Stable examination. Coronary artery calcification. Electronically Signed: Leonel Jon MD at 13:49 EDT ,
[2023-10-07 13:27] LABS: CREATININE FINGERSTICK < 1.0 mg/dL (0.55-1.02); EGFR FINGERSTICK > 60.0000 mL/min (>60)
== END | disposition home or self-care (01) ==
LOC: CT 12:49
PROVIDERS: PCP Nurse Practitioner Family; Referring Provider Nurse Practitioner Family; Visit Provider Nurse Practitioner Family
DX: R55 Syncope and collapse (principal); R00.2 Palpitations; I10 Essential (primary) hypertension; R06.02 Shortness of breath
CPT/HCPCS: 71275; 93306; Q9957; Q9967; A4216; C8929

== ENCOUNTER → 2023-11-30 | Outpatient (CLI) | payer MEDICARE, OTHER, SELFPAY ==
--- NOTE | 2023-11-30 10:58 | STRESSREP ---
Stress Test Report Pharmacologic myocardial perfusion stress test. 83-year-old lady with a history of dyspnea on exertion Resting EKG demonstrates sinus bradycardia with a rate of 46 bpm. Resting blood pressure is 122/70 mmHg. 0.4 mg of regadenoson was infused per usual protocol followed by rapid intravenous saline flush injection. Continuous EKG monitoring was performed. The maximum heart rate was 80 bpm which was 57% of max impacted heart rate the maximum workload was 1 metabolic equivalent. At rest there were no ST or T wave changes noted to suggest ischemia and at peak infusion nonspecific ST changes were noted which did not meet the criteria for ischemia. No clinical angina is noted. The final blood pressure was 122/70 mmHg. Myocardial perfusion protocol. 11.8 mCi of technetium 99m sestamibi was injected at rest. 0.4 mg of regadenoson was infused per usual protocol. At peak infusion 33.9 mCi of technetium 99m sestamibi was injected stress images were obtained stress and rest images were reconstructed and compared in the short axis vertical long and horizontal long axis. Gated images were also obtained. Perfusion SPECT analysis: Review of the stress images demonstrate normal uptake of tracer noted in all areas of the myocardium. The resting images similar demonstrated normal uptake of tracer noted in all areas of the myocardium. No areas of reversibility are noted to suggest ischemia and no previous infarct is noted. Gated SPECT analysis: The gated ejection fraction is over 80%. Conclusion: Normal pharmacologic myocardial perfusion stress test. Preserved ejection fraction.
== END | disposition home or self-care (01) ==
LOC: CVS 06:07
PROVIDERS: PCP Nurse Practitioner Family; Referring Provider Nurse Practitioner Family; Visit Provider Nurse Practitioner Family
DX: R06.02 Shortness of breath (principal); I82.409 Acute embolism and thrombosis of unspecified deep veins of unspecified lower extremity; I63.9 Cerebral infarction, unspecified; I10 Essential (primary) hypertension; I35.9 Nonrheumatic aortic valve disorder, unspecified
CPT/HCPCS: 78452; 93017; A9500; A4216; J2785

== ENCOUNTER 2024-02-28 08:36 | Day surgery (SDC) | payer MEDICARE, OTHER, SELFPAY ==
[2024-02-27 14:29] VITALS: BMI 32.5
--- NOTE | 2024-02-28 08:47 | RAD_ITS ---
STUDY: X-RAY CHEST REASON FOR EXAM: Female, 84 years old. WERNER TECHNIQUE: PA and lateral views of the chest. COMPARISON: Comparison is made with prior study dated May 03, 2023. FINDINGS: Hyperinflation. There is no demonstrated pleural abnormality. Normal size heart. Normal mediastinum and celia. Normal visualized pulmonary arteries. There is atherosclerotic calcification of the aortic arch with tortuosity. There are degenerative changes of the visualized thoracic spine. Status post left reverse shoulder replacement. Hiatal hernia. RAD/Chest PA and Lateral IMPRESSION: Hyperinflation. The lungs are clear. Electronically Signed: Leonel Jon MD at 15:27 EST ,
[2024-02-28 08:52] LABS: Absolute Lymphocyte Count 2.02 X10^3/uL (0.83-4.51); Absolute Neutrophil Count 3.8 X10^3/uL (2.0-7.7); Basophil# 0.12 X10^3/uL; Basophil% 1.7 % (0-1); Eosinophil# 0.24 X10^3/uL; Eosinophils% 3.3 % (0-5); Hematocrit 42.9 % (37-47); Lymphocyte # 2.02 X10^3/ul (0.83-4.51); Lymphocyte % 28.1 % (19-41); Mean Corp Hgb Conc 32.6 g/dL (32-36); Mean Platelet Vol. 10.4 fl (6.2-12.0); Monocyte# 1.02 X10^3/uL; Monocyte% 14.2 % (0-10); NRBC Flagged by Analyzer 0 % (0-5); Neutrophil # 3.76 X10^3/uL (2.7-7.7); Neutrophil % 52.4 % (47-70); Platelet Count 330 K/mm3 (150-450); RBC Distribution Width CV 13.8 % (11.6-14.6); RBC Distribution Width SD 45.3 fl (35.1-43.9); Red Blood Count 4.82 M/mm3 (4.2-5.4); White Blood Count 7.2 K/mm3 (4.4-11.0)
[2024-02-28 08:59] LABS: Prothrombin Time (Protime)PT. 12.9 SECONDS (11.7-14.9)
[2024-02-28 09:09] LABS: Anion Gap 6 (5-15); BUN 15 mg/dL (7-18); BUN/Creat Ratio 17.8 RATIO (10-20); Calcium,Total 9.6 mg/dL (8.5-10.1); Chloride 110 mmol/L (98-107); Creatinine, Serum 0.84 mg/dL (0.55-1.02); EST Glomerular Filtration Rate 69 mL/min (>60); Est Glom Filt Rate - Afr Amer 83 mL/min (>60); Estimated Creatinine Clearance 46.14 ml/min; Glucose 105 mg/dL (74-106); Potassium 4.2 mmol/L (3.5-5.1); Sodium Level 141 mmol/L (136-145)
--- NOTE | 2024-02-28 11:53 | CL.D_ITS ---
Patient Name: HARRISON GRIDER Study Date: 02/28/2024 Performing: Brandon Gaffney MD Ht: 60 inches 152.4 cm : 1940 Wt: 167 lbs 75.75 kg Age: 84 Gender: female BSA: 1.73 PROCEDURE(S) PERFORMED [id number])[facility] CLINICAL PROFILE AND INDICATIONS Indications: Suspected CAD Heart Failure: None Stress/Imaging Stress Test w/SPECT MPI: Yes Result: NegativeStress Test with SPECT MPI: Negative CAD Presentations: Other: Dyspnea, suspect angina equivalent CONCLUSIONS Mild calcific, non=-obstructive disease RECOMMENDATIONS Risk factor modification DESCRIPTION OF PROCEDURE The patient arrived to the procedure lab. The risks and benefits of the procedure as well as a full description of our services here and current unavailability of surgical backup were fully explained to the patient and/or their significant other prior to the catheterization. The Timeout was completed, verifying the correct patient and procedure. The patient's procedural site was prepped and draped in the usual fashion. Local anesthetic was given subcutaneously to right radial region with Lidocaine 2%. Using a modified Seldinger technique, arterial access was obtained via the right radial artery, a 6Fr sheath was inserted. Right Coronary Artery selective angiography was then performed in multiple views using a 5 Fr. 4.0 Willows catheter. Left Coronary Artery selective angiography was performed in multiple views using a 5 Fr. [id number].The arterial sheath was pulled and a TR Band was applied for hemostasis. 15cc air CORONARY ANGIOGRAPHY DOMINANCE: Right Dominant LEFT MAIN: Angiographically normal LEFT ANTERIOR DESCENDING ARTERY: LAD: Calcified 10% Proximal lesion in LAD Calcified 20% Mid lesion in LAD CIRCUMFLEX ARTERY: Angiographically normal RIGHT CORONARY ARTERY: RCA: Tubular 20% Proximal lesion in RCA COMPLICATIONS No Complications PROCEDURE MEDICATIONS Fentanyl 50 mcg IV Versed 1 mg IV Oxygen: 2 L/min via nasal cannula Heparin given IA 02/28/2024 11:34:17 Verapamil 2.5mg, Ntg 200mcgs, 2000 units of Heparin given IA 02/28/2024 11:34:17 IV Bolus: .9 NaCl 250 ml total 02/28/2024 11:36:47 SUMMARY OF HEMODYNAMIC DATA Time AIR REST ECG 09:10:04 AO 136/83 (108) SA 11:36:38 Signed By Brandon Gaffney MD On 02/28/2024 11:52:24 Brandon Gaffney MD
== END 2024-02-28 14:00 | disposition home or self-care (01) ==
PROVIDERS: PCP Nurse Practitioner Family; Referring Provider Internal Medicine Cardiovascular Disease; Visit Provider Internal Medicine Cardiovascular Disease
DX: I25.10 Atherosclerotic heart disease of native coronary artery without angina pectoris (principal); R06.02 Shortness of breath; I10 Essential (primary) hypertension; E78.5 Hyperlipidemia, unspecified; Z86.73 Personal history of transient ischemic attack (TIA), and cerebral infarction without residual deficits; Z86.718 Personal history of other venous thrombosis and embolism; Z90.710 Acquired absence of both cervix and uterus; E03.9 Hypothyroidism, unspecified; R53.83 Other fatigue; I25.2 Old myocardial infarction; R00.0 Tachycardia, unspecified; R00.2 Palpitations; R42 Dizziness and giddiness; R55 Syncope and collapse; K22.0 Achalasia of cardia; I35.1 Nonrheumatic aortic (valve) insufficiency; Q21.12 Patent foramen ovale
CPT/HCPCS: 36415; 71046; 80048; 85025; 85610; 93454; 99152; 99153; Q9967; C1769; C1894

== ENCOUNTER → 2024-04-25 | Outpatient (CLI) | payer MEDICARE, OTHER, SELFPAY ==
[2024-04-25 09:11] LABS: Hematocrit 44.4 % (37-47); Hemoglobin 14.8 g/dL (12.0-15.0); Mean Corp Hgb Conc 33.3 g/dL (32-36); Mean Corpuscular Hgb 30.1 pg (27.0-32.0); Mean Corpuscular Volume 90.2 fL (81-99); Mean Platelet Vol. 11.2 fl (6.2-12.0); Platelet Count 307 K/mm3 (150-450); RBC Distribution Width CV 13.7 % (11.6-14.6); RBC Distribution Width SD 45.6 fl (35.1-43.9); Red Blood Count 4.92 M/mm3 (4.2-5.4); White Blood Count 7.5 K/mm3 (4.4-11.0)
[2024-04-25 10:01] LABS: AST(SGOT) 18 U/L (15-37); Alanine Aminotransfer ALT/SGPT 29 U/L (13-56); Albumin, Serum 3.6 g/dL (3.2-5.0); Alkaline Phosphatase 74 U/L (45-117); Anion Gap 6 (5-15); BUN 15 mg/dL (7-18); BUN/Creat Ratio 18.7 RATIO (10-20); Calcium,Total 9.4 mg/dL (8.5-10.1); Chloride 109 mmol/L (98-107); Cholesterol 180 mg/dL (200); EST Glomerular Filtration Rate 73 mL/min (>60); Est Glom Filt Rate - Afr Amer 88 mL/min (>60); Globulin 3.5 g/dL (2.2-4.2); Glucose 107 mg/dL (74-106); High Density Lipoprotein 67 mg/dL; Potassium 4.2 mmol/L (3.5-5.1); Protein, Total 7.1 g/dL (6.4-8.2); Sodium Level 140 mmol/L (136-145); T4 Free Direct 1.03 ng/dL (0.76-1.46); Triglycerides 268 mg/dL; Very Low Density Lipoprotein 54 mg/dL (5-40)
[2024-04-25 10:13] LABS: PTHIN 70.2 pg/mL (18.4-80.1)
[2024-04-25 10:17] LABS: Vitamin D,25 Hydroxy 80.2 ng/mL
[2024-04-25 11:05] LABS: Microalbumin,Random Urine 11.9 mg/L (NO RANGE EST.); Microalbumin:Creatinine Ratio 8.2 mg/g CRE (<30 mg/g CRE)
== END | disposition home or self-care (01) ==
PROVIDERS: PCP Nurse Practitioner Family; Referring Provider Nurse Practitioner Family; Visit Provider Nurse Practitioner Family
DX: I10 Essential (primary) hypertension (principal); N28.9 Disorder of kidney and ureter, unspecified; E55.9 Vitamin D deficiency, unspecified; E03.9 Hypothyroidism, unspecified; E78.5 Hyperlipidemia, unspecified
CPT/HCPCS: 36415; 80053; 80061; 82043; 82306; 82570; 83970; 84439; 84443; 85027